=== PATIENT | female | born 1935 | race Caucasian/White ===

== ENCOUNTER 2017-08-21 13:28 | Day surgery (SDC) | payer OTHER ==
[~2017-08-21] VITALS: Ht 149.9 cm; Wt 59.4 kg
[2017-08-21] VITALS (7 sets, daily range): BP systolic 169–186; BP diastolic 57–91; PULSE 66–96; TEMP 36.4–37.2; O2SAT 89–96; Ht 149.9 cm; Wt 59.4 kg
[2017-08-21] MEDS ORDERED: GABA-112 PO (14:13)
[2017-08-21] MEDS ORDERED: GLIP10TA3 PO (14:13)
[2017-08-21] MEDS ORDERED: FERR1TAB13 PO (14:13)
[2017-08-21] MEDS ORDERED: GLC/500 PO (14:13)
[2017-08-21] MEDS ORDERED: OMEP20TA PO (14:13)
[2017-08-21] MEDS ORDERED: CLOP1TAB15 PO (14:13)
[2017-08-21] MEDS ORDERED: LISI20TA3 PO (14:13)
[2017-08-21] MEDS ORDERED: ATOR-24 PO (14:13)
--- NOTE | 2017-08-21 15:33 | Procedure Note ---
Pre-Mod Sedation Assessment General Date of Moderate Sedation: Aug 21, 2017. Vital Signs: Vital Signs Past 12 Hours Date Time Temp Pulse Resp B/P (MAP) Pulse Ox O2 Delivery O2 Flow Rate FiO2 08/21/17 14:13 37 83 22 186/89 (121) 92 Room Air Review Cardiovascular: regular rate, rhythm, no edema, no murmur Abdomen: soft Lungs: lungs clear Airway Class: II Pre-Sedation Airway Assessment Oral Cavity: Dental Abnormalities Short Thick Neck: No Hx of Sleep Apnea: No Smoking Status: Current Every Day Smoker Mallampati Classification: Class II ASA Classification: Class II Procedure Planning Contraindications-for Mod Sed: None Yes Notes The planned sedation has been discussed with the patient and consent obtained. I have identified the patient, determined the appropriateness of sedation and have assessed the patient immediately prior to the procedure. All medicine(s) and interventions are by my order.
--- NOTE | 2017-08-21 15:33 | History & Physical Bridge Note ---
H&P Re-Evaluation Bridge Note: I have examined the patient, reviewed the History & Physical and in the interval since the performance of the History & Physical I have noted the following changes of clinical significance: No changes noted
[2017-08-21] MEDS ORDERED: LIDOCAINE HCL 1% 20 ML VIAL ONE (15:35)
[2017-08-21] MEDS ORDERED: KEFZOL SPECIAL PROCEDURE STOCK 1 GM ADDVIAL IV ONE (15:45)
[2017-08-21] MEDS ORDERED: FENTANYL CITRATE INJ 50 MCG/1 ML 2 ML VIAL ONE (15:46)
[2017-08-21] MEDS ORDERED: MIDAZOLAM HCL 5 MG/ML 1 ML VIAL ONE (15:46)
[2017-08-21] MEDS ORDERED: LACTATED RINGER'S 1000ML IV SCH (16:00)
--- NOTE | 2017-08-21 16:21 | Procedure Note ---
Post-Mod Sedation Assessment General Date of Moderate Sedation Aug 21, 2017. Vital Signs: Vital Signs Past 12 Hours Date Time Temp Pulse Resp B/P (MAP) Pulse Ox O2 Delivery O2 Flow Rate FiO2 08/21/17 16:15 79 16 148/77 (100) 98 Mask 08/21/17 14:13 37 83 22 186/89 (121) 92 Room Air Review - Discharge Criteria Vital Signs Stable: Yes Alert/Oriented/Conversant: Yes Returned to Baseline Mental St: Yes Nausea Absent/Minimal: Yes Pain/Discomfort/Absent/Minimal: Yes Normal/Baseline Respirations: Yes Active Bleeding?: No Pt Received D/C Instructions: N/A Prescriptions Given: None Specific Proced. D/C Criteria Distal Pulses Present (Cardiac: N/A Groin site assessed-Card Cath: N/A Voided Prior To Discharge: N/A Discharged Patients Adult Escort/Transportation: N/A
--- NOTE | 2017-08-21 16:24 | Discharge Instructions ---
Discharge Instructions Date of Service Aug 21, 2017. Visit Reason for Visit: Tachy Alexis Syndrome *Dr Blue* Discharge Discharge Diagnosis / Problem: PPM AT CARLOS, TBS Discharge Goals Goal(s): Improve function Activity Recommendations Activity Limitations: as noted below Lifting Limitations: no more than 10 pounds (WITH THE LEFT ARM FOR 2 WEEKS) Shower/Bathe: tomorrow Driving or Machine Use: resume 1 day after discharge Anesthesia . Post Anesthesia Instructions: If you have had General Anesthesia or IV Sedation: * Do not drive today. * Resume driving when surgeon permits. * Do not make important decisions or sign legal documents today. * Call surgeon for: 1. Temperature elevations greater than 101 degrees F. 2. Uncontrollable pain. 3. Excessive bleeding. 4. Persistent nausea and vomiting. 5. Medication intolerance (nausea, vomiting or rash). * For nausea and vomiting use only clear liquids such as: tea, soda, bouillon until nausea subsides, then gradually increase diet as tolerated. * If you have any concerns or questions, call your surgeon's office. If physician is unavailable and it is an emergency, call 911 or go to the nearest emergency room. . Instructions / Follow-Up Instructions / Follow-Up ACTIVITY RECOMMENDATIONS: Do not lift more than 10 pounds with the left arm for 2 weeks SPECIAL CARE INSTRUCTIONS: * If bleeding occurs, apply direct pressure to area for 5 minutes. * Call your doctor if you have severe pain, fever, drainage or bleeding at site. * Keep dry for 24 hours. * Keep any scheduled doctor's appointment. * Implant Card - hand held device with website information given. SKIN IRRITATION: * You may experience some redness and/or swelling in the area where radiation was administered. If any skin irritation occurs, please contact your family physician. FOLLOW UP VISIT: Keep any scheduled doctor appointments. Diet Recommendations Recommended Home Diet: resume previous diet Procedures Procedures Performed: dual chamber permanent pacemaker generator change Pending Studies Studies pending at discharge: no Medical Emergencies . Who to Call and When: Medical Emergencies: If at any time you feel your situation is an emergency, please call 911 immediately. . Non-Emergent Contact Non-Emergency issues call your: Filler In . . "Provider Documentation" section prepared by Matilda Blue. .
--- NOTE | 2017-08-21 16:25 | [facility] Post Operative Brief Note ---
Immediate Operative Summary Operative Date Aug 21, 2017. Pre-Operative Diagnosis ppm at tj, tbs Post-Operative Diagnosis same Procedure(s) Performed dual chamber permanent pacemaker generator change Surgeon sydnie torres Aerospace Engineer Officer Armament Surgeon(s) none Estimated Blood Loss <5cc Findings see official report Fluids (cc crystalloids) 100cc Specimens none Drains none Anesthesia 3mg versed and 75mcg fentantyl Complication(s) None Disposition PCU
[2017-08-21] MEDS ORDERED: NURSING VERBAL MED ORDER ONE (18:30)
[2017-08-21] MEDS ORDERED: ALBUT/IPRATROP 3MG/0.5MG NEB 3 ML VIAL INH ONE (19:30)
--- NOTE | 2017-08-21 22:26 | OPERATIVE REPORT ---
DATE OF OPERATION: 08/21/2017 PREOPERATIVE DIAGNOSES: Permanent pacemaker at elective replacement indicator and tachybrady syndrome. POSTOPERATIVE DIAGNOSIS: Same. PROCEDURE: Dual chamber rate responsive permanent pacemaker generator change. SURGEON: Dr. Matilda Blue. CONCAVER: None. ANESTHESIA: Monitored conscious sedation administered under my supervision by Fara Lew. A total of 3 mg Versed and 75 mcg of fentanyl, start time 15:52 and end time 1615. IV FLUIDS: 100 mL. ANTIBIOTICS: 1 gram of Ancef. COMPLICATIONS: None. CONDITION: Stable. URINE OUTPUT: Not applicable. SPECIMENS: None. FINDINGS: See below. 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 She at her most recent device check was found to hit CARLOS back in July and she is symptomatic due to loss of rate responsive. She was recommended a generator change. CONSENT: Consent was obtained prior to the patient going into the electrophysiology lab. The patient was informed of risks, benefits and alternatives to the procedure. Risks include but not limited to sudden cardiac , cardiac arrhythmias, cerebrovascular accident, myocardial infarction, bleeding and infection. The patient understood these risks and agreed to the procedure as planned. Informed consent was obtained. DESCRIPTION OF THE PROCEDURE: The patient was brought into the electrophysiology lab in a fasting state. She was connected to continuous hides and skins colorer. A timeout was performed to ensure patient's identity and procedure correctly. The patient was prepped and draped over the left infraclavicular space in normal surgical standard fashion. Monitored conscious sedation was given throughout the procedure for patient's comfort level under my supervision. [place] precautions were maintained throughout the procedure. A 10 mL of 1% lidocaine, bupivacaine mixture were given over the prior surgical incision. Incision was made over the prior surgical incision and blunt dissection was performed down to the prior generator. The capsule was disrupted using iris scissors and then the pulse generator was freed from the capsule and removed from the body and the leads were checked intraoperatively. The capsule was disrupted and inferiorly and caudally to allow for new blood flow. The pocket was then flushed with copious amounts of bacitracin saline wash and inspected for hemostasis. The new pulse generator was attached to the leads making sure that the pins were in appropriate position, passed the set screws and the set screws were all tightened. The pulse generator was then placed in the pocket, making sure that the leads were lying flat beneath the device. The incision was then closed in 3-layer fashion, 2-0 Vicryl interrupted suture followed by 3-0 Vicryl sutures followed by a 4-0 Monocryl running stitch and Dermabond was applied. EQUIPMENT: 1. Explanted generator is [employer] [place], model number [id number], serial #[id number], implanted 12/23/2010. Hit [employer] SECUR[employer] GUARD on 07/15/2017. 2. The new generator is a [employer] [id number], serial #[id number]. 3. Right atrial lead - model #[id number], serial number [id number], implanted 12/23/2010. 4. Right ventricular lead 1646t - 58 cm, serial #[id number], implanted 12/23/2010. INTRAOPERATIVE TESTIN. Right atrial lead: P-wave 2.5 millivolts, impedance 409 ohms, threshold 0.5 volts at 1.1 milliamps. 2. Right ventricular lead: R-wave 9.9 millivolts, impedance 725 ohms, threshold 0.6 volts at 0.7 milliamps. FINAL MEASUREMENTS THROUGH THE DEVICE: 1. Right atrial lead: P-waves 1 millivolt, impedance 380 ohms, threshold 0.75 volts at 0.4 milliseconds. 2. Right ventricular lead: R-wave 15.68 millivolts, impedance 697 ohms, threshold 0.75 volts at 0.4 milliseconds. FINAL PARAMETERS: MVP-R 60/130. Right atrial amplitude 1.5 volts, pulse width 0.4 milliseconds, sensitivity 0.3 millivolts. Right ventricular amplitude 1.5 volts, pulse width 0.4 milliseconds, sensitivity 1.2 millivolts. IMPRESSION: Successful dual chamber rate responsive permanent pacemaker generator change due to the patient's pacemaker at elective replacement indicator and tachybrady syndrome. PLAN: Monitor patient post-sedation. She can continue her home medications. She is not to lift more than 10 pounds with the left arm for 2 weeks. She should follow up in our device clinic in [facility] for device and wound check in 7-10 days. I attest to the content of the Intraoperative Record and any orders documented therein. Any exceptions are noted below. MTDD
[2017-08-22] MEDS ORDERED: CEFAZOLIN IV 1,000 MG in DEXTROSE 5% 50ML IV SCH (06:00)
== END 2017-08-21 19:06 | disposition home or self-care (01) ==
LOC: C.ACU 13:28
PROVIDERS: ATTEND Internal Medicine
DX: I49.5 Sick sinus syndrome (principal); E11.59 Type 2 diabetes mellitus with other circulatory complications; I10 Essential (primary) hypertension; E78.5 Hyperlipidemia, unspecified; Z95.0 Presence of cardiac pacemaker; Z95.5 Presence of coronary angioplasty implant and graft; Z79.899 Other long term (current) drug therapy; Z79.84 Long term (current) use of oral hypoglycemic drugs; Z87.891 Personal history of nicotine dependence

== ENCOUNTER 2019-03-06 19:14 | Inpatient (IN) ==
[2019-03-06] MEDS ORDERED: LEVALBUTEROL HCL 1.25 MG/3 ML NEB NEB STA (20:16)
[2019-03-06] MEDS ORDERED: SODIUM CHLORIDE 0.9% 1000ML 500 ML IV ONE (20:16)
--- NOTE | 2019-03-06 20:34 | XRay Report ---
XR chest 1V portable CLINICAL HISTORY: 83 years-old Female presenting with Sepsis, shaky, abdominal pain. TECHNIQUE: Portable upright AP view of the chest was obtained. COMPARISON: None. FINDINGS: Left subclavian pacer with leads to the right atrium and right ventricular apex. Atherosclerosis of t he aortic arch. Cardiac silhouette mildly enlarged. Apparent nodule at the left lung base may represe nt a prominent nipple shadow. Lungs mildly hyperinflated. No focal opacity. No pleural effusion or pn eumothorax. Posttraumatic and/or advanced degenerative changes of the right glenohumeral joint. Upper abdomen normal. IMPRESSION: 1. Findings may suggest emphysema. No focal infiltrate to suggest pneumonia. 2. Mild cardiomegaly. 3. Apparent nodule at the left lung base may represent a prominent nipple shadow. This may be confir med with PA and lateral views or with nipple markers. Electronically signed by: Khris Amanda M.D. 03/06/2019 8:33 PM
[2019-03-06] MEDS ORDERED: LEVALBUTEROL 1.25MG/0.5ML NEB ONE (20:57)
[2019-03-06 21:05] LABS: Basophils # (auto) 0.01 K/uL (0-0.2); Basophils % (auto) 0.3 %; Eosinophils # (auto) 0.03 K/uL (0-0.5); Eosinophils % (auto) 0.8 %; Hematocrit (blood only) 39.4 % (37-47); Hemoglobin 13.6 g/dL (12.0-16.0); Immature Granulocytes # (auto) 0.03 K/uL (0.00-0.02); Immature Granulocytes % (auto) 0.8 %; Lymphocytes # (auto) 0.19 K/uL (1.2-3.4); Lymphocytes % (auto) 5.1 %; Mean Corpuscular Hgb Conc 34.5 g/dL (32-36); Mean Corpuscular Volume 90.6 fL (80-100); Monocytes # (auto) 0.03 K/uL (0.11-0.59); Monocytes % (auto) 0.8 %; Neutrophils # (auto) 3.43 K/uL (1.4-6.5); Neutrophils % (auto) 92.2 %; Platelet Count 108 K/uL (130-400); RDW Coefficient of Variation 13.8 % (11.5-14.5); RDW Standard Deviation 45.7 fL (36.4-46.3); Red Blood Count 4.35 M/uL (4.2-5.4); White Blood Count 3.72 K/uL (4.8-10.8)
[2019-03-06 21:15] LABS: INR 1.2 (0.9-1.1); Partial Thromboplastin Ratio 0.8; Partial Thromboplastin Time 21.7 Seconds (21.0-31.0); Prothrombin Time 11.9 Seconds (9.0-12.0)
[2019-03-06 21:15] LABS: iSTAT Creatinine 0.7 mg/dl (0.6-1.3); iSTAT Hemoglobin 12.9 g/dl (12.0-16.0); iSTAT Ionized Calcium 1.1 mmol/l (1.12-1.32); iSTAT Potassium 3.4 mEq/L (3.3-5.0)
[2019-03-06 21:22] LABS: Albumin Level 3.6 gm/dl (3.4-5.0); BUN Creatinine Ratio 21.8 (10-20); Calcium 8.6 mg/dl (8.5-10.1); Creatinine Clr Calc Pharmacy 39.1 ml/min; Est GFR (Non-African American) 59.5; Potassium 3.4 mmol/L (3.5-5.1)
[2019-03-06 21:44] LABS: Albumin Globulin Ratio 1.3 (0.9-2); Bilirubin,Total 1.3 mg/dl (0.2-1); Creatine Kinase MB 1.8 ng/ml (0.5-3.6); Globulin 2.8 gm/dl (2.5-4.0); Total Protein 6.4 gm/dl (6.4-8.2); Troponin I 0.049 ng/ml (0-0.045)
[2019-03-06] MEDS ORDERED: IOVERSOL 100ml IV PRN (21:47)
--- NOTE | 2019-03-06 21:54 | CT Scan Report ---
CT head/brain wo con CLINICAL HISTORY: 83 years-old Female presenting with Pt c/o AMS. TECHNIQUE: Multidetector CT imaging of the head was performed without the use of intravenous contrast . IV contrast: None. One or more dose lowering techniques were used consistent with the principles of ALARA (as low as reasonably achievable), including automatic exposure control, mA or kV adjustment t o individual patient size, and/or use of iterative reconstruction. COMPARISON: None. CT DOSE (mGy.cm): The estimated cumulative dose is 984.92 mGy.cm. FINDINGS: Fuel Efficient Automobile Designer topogram: The patient is edentulous. Proportional ventricular and sulcal prominence, likely age-related parenchymal volume loss. No hemorr carmen. Periventricular and subcortical white matter hypoattenuation, nonspecific but likely indicative of chronic small vessel ischemic change. No acute territorial infarct. No mass effect or midline cindi ft. No extra-axial fluid collection. Paranasal sinuses and mastoid air cells clear. Calvarium intact. IMPRESSION: 1. Chronic small vessel ischemic change. No acute intracranial abnormality. Electronically signed by: Khris Amanda M.D. 03/06/2019 9:52 PM
--- NOTE | 2019-03-06 22:06 | CT Scan Report ---
CT abd pelvis IV con only CLINICAL HISTORY: 83 years-old Female presenting with Pt c/o Rt sided abd pain. TECHNIQUE: Multidetector CT of the abdomen and pelvis was performed after the administration of intra venous contrast. IV contrast: 94 mL of Optiray 320. One or more dose lowering techniques were used co nsistent with the principles of ALARA (as low as reasonably achievable), including automatic exposure control, mA or kV adjustment to individual patient size, and/or use of iterative reconstruction. COMPARISON: None. CT DOSE (mGy.cm): The estimated cumulative dose is 984.92. FINDINGS: Baby Counselor topogram: Partially visualized pacer leads to the right atrium and right ventricular apex. Lung bases: Pacer leads noted to the right atrium and right ventricular apex. Faint calcification of papillary musculature in the left ventricle. Top normal cardiac size. No pericardial or pleural effus ion. Minimal dependent changes likely atelectasis. Mosaic attenuation suggest small airways disease. Fat-containing right Bochdalek hernia. Liver: Overall normal morphology of the liver apart from a subcapsular hypoenhancing lenticular 2.6 x 1.4 cm lesion along the anterior medial left hepatic lobe. Mild periportal edema suggested. Few tiny well-defined hypodense lesions likely hepatic cysts or hamartomas. Patent hepatic vasculature. Biliary: No intrahepatic or extrahepatic biliary ductal dilatation. Normal gallbladder. Pancreas: Moderate parenchymal atrophy. Spleen: Normal. Adrenal glands: Normal. Kidneys and ureters: Delayed perfusion of the right kidney in comparison to the left with moderate pe lvocaliectasis and distention of the right ureter to the level of an obstructing 9 mm calculus impact ed at the right ureterovesical junction. Severe right perinephric fat infiltration with exuberant per inephric fluid. Dominant simple appearing upper pole left renal cyst. Parapelvic cysts also suggested at the lower pole the left kidney. Several smaller renal cysts noted bilaterally. Left ureter nondis tended. Bladder: Normal. No bladder calculus. Pelvic organs: Uterus surgically absent. Cyst in the left adnexa possibly ovarian in origin and measu ring less than 2 cm, which is simple appearing. The right ovary is not visualized. Bowel: Mild diffuse wall thickening of the colon. The appendix is normal. No bowel obstruction. Small hiatal hernia. Peritoneal cavity: No free fluid or intraperitoneal gas. Right retroperitoneal fluid as mentioned. Lymph nodes: No enlarged lymph nodes in the abdomen or pelvis. Vasculature: Atherosclerosis of the normal caliber abdominal aorta. IVC patent. Extensive irregularit y of the infrarenal abdominal aorta despite lack of ectasia. Abdominal wall: Abdominal wall laxity with a small bowel containing ventral hernia in the infraumbili dima region. Fat-containing inguinal hernias may also be present. Musculoskeletal: Degenerative changes of the spine. Osteopenia. IMPRESSION: 1. Obstructing 9 mm calculus impacted at the right ureterovesical junction with resultant moderate r ight hydroureteronephrosis. Given the degree of right perinephric fluid, calyceal rupture suspected. No additional renal or ureteral calculus. 2. Subcapsular indeterminate lesion along the anterior left hepatic lobe. Correlate for an underlyin g malignancy. Comparison to prior examinations would be helpful. 3. Simple appearing 2 cm left adnexal cyst, unexpected in a postmenopausal patient. Per the [employer] incidental findings II committee recommendations, this would be considered margarito gn with no follow-up indicated in the late postmenopausal setting. 4. Apparent mild diffuse wall thickening of the colon is most likely due to underdistention an less there is symptomatology that would be suggest a mild colitis. Electronically signed by: Khris Amanda M.D. 03/06/2019 10:05 PM
[2019-03-06 22:21] LABS: Influenza A virus by PCR Neg for Influ A (Neg); Influenza B virus by PCR Neg for Influ B (Neg)
[2019-03-06] MEDS ORDERED: PIPERACILL/TAZOBAC CONSULT ACTIVE PRN (22:31)
[2019-03-06] MEDS ORDERED: PIPERACILLIN/TAZOBACTAM 4.5 GM/120 ML BAG IV ONE (22:31)
[2019-03-06] MEDS ORDERED: LEVOFLOXACIN/D5W 750 MG/150 ML BAG IV STA (22:31)
[2019-03-06] MEDS ORDERED: DAPTOmycin 275 MG in SYRINGE 0 ML IV ONE (22:31)
[2019-03-06 23:01] LABS: Appearance Urine Clear (Clear); Bacteria Urine Automated 4+ (Negative); Bilirubin Urine Negative (Negative); Blood Urine 1+ (Negative); Cast Urine Automated 0 /lpf (0-5); Color Urine Yellow; Epithelial Cell Urine Auto 0-5 /lpf (0-5); Glucose Urine UA Negative (Negative); Ketones Urine Negative (Negative); Leukocyte Esterase Urine Negative (Negative); Nitrite Urine Positive (Negative); Protein Urine Negative (Negative); RBC Urine Automated 0-4 /hpf (0-4); Urobilinogen Urine Negative (Negative)
--- NOTE | 2019-03-06 23:07 | Anesthesiology Consultation ---
Date of Service March 06, 2019 Assessment & Plan Chart Review Chart Review: Acceptable Risk for Surgery (emergent case) and Patient NOT seen in Pre Admission Testing Consults Requested none ASA [id number] Proposed Anesthesia Anesthesia Type: MAC Risk / Benefits Reviewed With: PT / POA / Parent / Guardian, Accepts Plan and Informed Consent Obtained Additional Comments: R/B of anesthesia discussed with both patient and her daughter. All questions were answered. Explained to pt and her daughter regarding her moderate to high risk of anesthesia due to her comorbidities. They understood and accepting risks. Consent was signed. NPO Date Last Intake of Fluids: 03/06/19 Time Last Intake of Fluids: 13:00 Date Last Intake of Solids: 03/06/19 Time Last Intake of Solids: 13:00 History Surgery Operation Date: 03/06/19 23:00 Proposed Procedures p Ureteral Stent Insertion/Removal - Justice Bojorquez MD Height/Weight Height: 1.55 m Weight: 60 kg Allergies Allergy/AdvReac Type Severity Reaction Status Date / Time No Known Allergies Allergy Unverified 08/21/17 14:01 Medications Home Medications Medication Instructions Recorded Confirmed Last Taken atorvastatin 40 mg PO DAILY 03/06/19 03/06/19 Unknown clopidogrel 75 mg PO DAILY 03/06/19 03/06/19 Unknown glipizide 10 mg PO DAILY 03/06/19 03/06/19 Unknown lisinopril 20 mg PO DAILY 03/06/19 03/06/19 Unknown metformin 500 mg PO BID 03/06/19 03/06/19 Unknown sertraline 25 mg PO DAILY 03/06/19 03/06/19 Unknown Active Medications Generic Name Dose Route Start Last Admin Trade Name Freq PRN Reason Stop Dose Admin Levofloxacin/Dextrose 750 mg in 150 mls @ 100 mls/hr 03/06/19 22:31 03/06/19 23:17 Levaquin/D5w IV 03/07/19 00:00 100 mls/hr NOW STA Administration Ioversol 94 ml 03/06/19 21:47 03/06/19 21:47 Optiray 320 100ml IV 03/10/19 21:46 94 ml ONCE PRN Administration Interaction Checking Past Medical History Medical History History of pacemaker Atrial fibrillation CAD (coronary artery disease) Chronic cough Diabetes Family history non-contributory Hyperlipidemia Hypertension Tachy-morelia syndrome S/p PM placement Past Family History Family History Other Family history non-contributory Past Surgical History Surgical History S/P appendectomy S/P cardiac cath PCI to RCA in 2010 S/P cardiac pacemaker procedure S/P cholecystectomy Past Anesthesia History No Hx of Anesthesia Complications and No Family Hx of Anesthesia Complications History of PONV No Motion Sickness Screening History of Motion Sickness: No Social History Smoking Status: Current every day smoker Smoking cigarettes per day: 1 ppd since age 13 Do You Dip or Chew Tobacco: No Hx Alcohol Use: No Hx Substance Use: No Exercise / Class Metabolic Activity III < 4 Walking/Shop/Light housework Physical Exam Vital Signs Last Vital Signs Temp 37.7 C H 03/06/19 19:30 Pulse 103 H 03/06/19 22:29 Resp 24 03/06/19 22:29 BP 163/91 H 03/06/19 22:29 Pulse Ox 94 03/06/19 22:29 ENMT Mouth: + edentulous (Only has 1 lower tooth); no TMJ abnormality and no TMJ clicking Thyromental Distance: < 3.5 Finger Breadths Mallampati Class: II Neck normal visual inspection Respiratory Auscultation: lungs clear to auscultation bilaterally Cardiovascular Rate/Rhythm: + abnormal rate and + abnormal rhythm (Irregularly irregular) Psychiatric Orientation: alert some confusion Testing Electrocardiogram Date: 03/06/19 Findings: + AFIB @ (96) Atrial fibrillation Anterior infarct , age undetermined Abnormal ECG No previous ECGs available Chest X-Ray Date: 03/06/19 FINDINGS: Left subclavian pacer with leads to the right atrium and right ventricular apex. Atherosclerosis of the aortic arch. Cardiac silhouette mildly enlarged. Apparent nodule at the left lung base may represent a prominent nipple shadow. Lungs mildly hyperinflated. No focal opacity. No pleural effusion or pneumothorax. Posttraumatic and/or advanced degenerative changes of the right glenohumeral joint. Upper abdomen normal. IMPRESSION: 1. Findings may suggest emphysema. No focal infiltrate to suggest pneumonia. 2. Mild cardiomegaly. 3. Apparent nodule at the left lung base may represent a prominent nipple shadow. This may be confirmed with PA and lateral views or with nipple markers. Laboratory Results 03/06/19 20:50 03/06/19 20:50 PT 11.9 Seconds (9.0-12.0) 03/06/19 20:50 INR 1.2 (0.9-1.1) H 03/06/19 20:50 APTT 21.7 Seconds (21.0-31.0) 03/06/19 20:50 Urine Color Yellow 03/06/19 22:52 Urine Appearance Clear (Clear) 03/06/19 22:52 Urine pH 6.0 (4.5-7.5) 03/06/19 22:52 Ur Specific [place] 1.020 (1.000-1.030) 03/06/19 22:52 Urine Protein Negative (Negative) 03/06/19 22:52 Urine Glucose (UA) Negative (Negative) 03/06/19 22:52 Urine Ketones Negative (Negative) 03/06/19 22:52 Urine Nitrite Positive (Negative) H 03/06/19 22:52 Ur Leukocyte Esterase Negative (Negative) 03/06/19 22:52 Urine WBC (Auto) 1-5 /hpf (0-5) 03/06/19 22:52 Urine RBC (Auto) 0-4 /hpf (0-4) 03/06/19 22:52 U Hyaline Cast (Auto) 0 /lpf (0-5) 03/06/19 22:52 U Epithel Cells (Auto) 0-5 /lpf (0-5) 03/06/19 22:52 Urine Bacteria (Auto) 4+ (Negative) H 03/06/19 22:52 03/06/19 21:00 POC Glucose (other) 190 H
[2019-03-06] MEDS ORDERED: fentaNYL citrate 100 MCG/2 ML VIAL IV PRN (23:11)
[2019-03-06] MEDS ORDERED: ATROPINE SULFATE 0.1 MG/ML 10ML SYR IV PRN (23:11)
[2019-03-06] MEDS ORDERED: PHENYLEPHRINE 100MCG/ML 5ML SYR IV PRN (23:11)
[2019-03-06] MEDS ORDERED: ONDANSETRON INJ 2 MG/ML 2 ML VIAL IV PRN (23:11)
[2019-03-06] MEDS ORDERED: ePHEDrine sulfate 50 MG/ML AMP IV PRN (23:11)
[2019-03-06] MEDS ORDERED: fentaNYL citrate 100 MCG/2 ML VIAL ONE (23:13)
--- NOTE | 2019-03-06 23:15 | Urology Consultation ---
Date of Consultation March 06, 2019 83-year-old female with no previous known history of stone disease presented with sudden onset of right flank pain fever nausea this afternoon. She presented to the emergency room she does have a history of a stent for heart atrial fibrillation she also has history of [id number] diabetes. She had a CT scan that showed significant hydroureteronephrosis to a 6-7 mm distal right ureteral stone. She does have stranding around the right kidney. She had a temp of over 39 in the emergency room and had a lactate of 4. White blood cell count is actually low her blood sugar is 190. She is tachycardic. Her daughter says she is somewhat confused as well. Discussed the options with the patient and the daughter and believe that given that she has bacteria in her urine and is nitrite positive that we would proceed to placing a stent. Because the risk of the procedure and agreed to proceed The hospice of seen the patient and her admitting her and I have contacted the operating room and will be taking her to place and emergent right stent History of Present Illness Allergies Allergy/AdvReac Type Severity Reaction Status Date / Time No Known Allergies Allergy Unverified 08/21/17 14:01 Home Medications Home Medications Medication Instructions Recorded Confirmed Type ATORVASTATIN (LIPITOR) 40 mg PO DAILY #0 tab 08/21/17 History Clopidogrel (Plavix) 75 mg PO DAILY #0 tab 08/21/17 History FERROUS SULFATE (KP FERROUS 1 tab PO DAILY 30 Days #30 tab 08/21/17 History SULFATE) GLIPIZIDE (GLUCOTROL) 10 mg PO DAILY #0 tab 08/21/17 History Gabapentin (Neurontin) PO TID #0 cap 08/21/17 History Lisinopril (Prinivil) 20 mg PO DAILY #0 tab 08/21/17 History METFORMIN HCL (GLUCOPHAGE) 500 mg PO BID #0 tab 08/21/17 History OMEPRAZOLE 1 tab PO DAILY 90 Days #90 tab 08/21/17 History Patient History Medical History History of pacemaker Atrial fibrillation CAD (coronary artery disease) Diabetes Family history non-contributory Hyperlipidemia Hypertension Tachy-morelia syndrome S/p PM placement Surgical History No pertinent past surgical history S/P cardiac cath PCI to RCA in 2010 S/P cardiac pacemaker procedure Family History Other Family history non-contributory Social History Feels Safe at Home: Yes Smoking Status: Current every day smoker Physical Exam Vital Signs (Past 24 Hours): Last Vital Signs Temp 37.7 C H 03/06/19 19:30 Pulse 103 H 03/06/19 22:29 Resp 24 03/06/19 22:29 BP 163/91 H 03/06/19 22:29 Pulse Ox 94 03/06/19 22:29 patient is an ill-looking female HEENT is unremarkable She has no significant respiratory distress she does have right-sided flank pain abdomen is soft with some tenderness in the right side Extremities without any evidence of edema Skin is warm and dry Neurologically the patient is responsive but somewhat confused Neck appears normal without any adenopathy Results & Data Diagnostic Findings CT is previously stated shows distal obstructing right ureteral stone Medications Administered Patient is received IV antibiotics 3 different kinds per the ED
[2019-03-06] MEDS ORDERED: LIDOCAINE HCL 2% 2 ML VIAL/AMP(20MG/ML) INFIL ONE ×2 (23:16)
[2019-03-06] MEDS ORDERED: PROPOFOL IV EMULSION 10 MG/ML 20 ML VIAL IV ONE (23:16)
[2019-03-06] MEDS ORDERED: SUCCINYLCHOLINE CHLORIDE 20 MG/ML 10 ML VIAL ONE (23:19)
[2019-03-07] MEDS ORDERED: IOTHALAMATE MEGLUMINE II 17.2% 250 ML VIAL ONE (00:02)
[2019-03-07] MEDS ORDERED: PHENYLEPHRINE HCL 10 MG/ML VIAL ONE (00:19)
--- NOTE | 2019-03-07 00:28 | Post Operative Brief Note ---
Immediate Post Op Note v1 Date of Surgery March 07, 2019 Pre & Post Diagnosis Operation Date: 03/06/19 23:00 Pre-Op Diagnosis: hydroureteronephrosis right ureteral stone ,urosepsis Post-Op Diagnosis: hydroureteronephrosis right ureteral stone ,urosepsis Procedure Operation Date: 03/06/19 23:00 Actual Procedures p Cystoscopy, Right Ureteral Stent Placement(Right) - Justice Bojorquez MD Surgeon Justice Bojorquez MD Legal Research Analyst none Estimated Blood Loss 0 Findings Consistent with Post-Op Diagnosis Drains Ponce Catheter (18fr)
--- NOTE | 2019-03-07 00:55 | Emergency Department Note ---
Entered by Esperanza Mckinnon acting as a scribe for Jed Mueller MD History of Present Illness General Chief complaint: Illness Stated complaint: PAINS IN STOMACH, VOMITING BILE, SHAKES/CHILLS Time Seen by Provider: 03/06/19 20:13 Source: patient Mode of arrival: ambulatory Limitations: no limitations History of Present Illness Provider complaint: Abd pain Onset (ago): hour(s) (couple hours ago today) Location: abdomen Severity: moderate Pain Consistency: + constant Maximum Pain Intensity: 5 Associated symptoms: + denies other symptoms, + nausea/vomiting and + other ( yaima); no chest pain, no headaches and no shortness of breath Patient 83 year old female presenting to the ED with abd pain beginning today. Patient states that she is having right sided abd pain, which is moderate in severity and constant since onset. She shares she has had multiple episodes of vomiting and diarrhea since onset as well. Daughter notes patient has been shaking and feeling weaker than normal. Patient shares she does have a pacemaker, but is unsure if she has any hx of abd surgeries. Patient lastly notes she did have cough, but denies any numbness, SOB, CP, fevers, chills or any other complaints or concerns at this time. Home Medications Home Medications Medication Instructions Recorded Confirmed Type atorvastatin 40 mg PO DAILY 03/06/19 03/06/19 History clopidogrel 75 mg PO DAILY 03/06/19 03/06/19 History glipizide 10 mg PO DAILY 03/06/19 03/06/19 History lisinopril 20 mg PO DAILY 03/06/19 03/06/19 History metformin 500 mg PO BID 03/06/19 03/06/19 History sertraline 25 mg PO DAILY 03/06/19 03/06/19 History Allergies Allergy/AdvReac Type Severity Reaction Status Date / Time No Known Allergies Allergy Unverified 08/21/17 14:01 Past Med/Surg History Medical History History of pacemaker Atrial fibrillation CAD (coronary artery disease) Chronic cough Diabetes Family history non-contributory Hyperlipidemia Hypertension Tachy-morelia syndrome S/p PM placement Surgical History S/P appendectomy S/P cardiac cath PCI to RCA in 2010 S/P cardiac pacemaker procedure S/P cholecystectomy Family History Other Family history non-contributory Social History Feels Safe at Home: Yes Smoking Status: Current every day smoker Hx Alcohol Use: No Hx Substance Use: No Review of Systems See HPI for pertinent positives & negatives. and A total of 10 systems reviewed and were otherwise negative Physical Exam Vital Signs Vital Signs - 24 hr 03/06/19 19:30 03/06/19 21:16 03/06/19 21:24 Temperature 37.7 C H Temperature Source Oral Sepsis Recent Fever Within 48 Hours No Sepsis New/Unexplained Change in Mental Status No Sepsis Action Taken by Nursing No Action Required Pulse Rate 123 H Pulse Rate [Apical] Pulse Rate [Right Radial] 102 H 98 H Pulse Rhythm [Apical] Respiratory Rate 20 16 20 Respiratory Effort / Characteristics Non-Labored Spontaneous Respiratory Depth Respiratory Pattern Blood Pressure 202/70 H Blood Pressure [Left Arm] 152/72 H Blood Pressure [Right Arm] Blood Pressure Mean 114 Blood Pressure Mean [Left Arm] 98 Blood Pressure Mean [Right Arm] Blood Pressure Position [Right Arm] Pulse Oximetry 95 90 94 Oxygen Delivery Method Room Air Room Air Oxygen Flow Rate 03/06/19 21:56 03/06/19 22:29 03/07/19 00:33 Temperature 36.4 C L Temperature Source Oral Sepsis Recent Fever Within 48 Hours Sepsis New/Unexplained Change in Mental Status Sepsis Action Taken by Nursing Pulse Rate 112 H Pulse Rate [Apical] 87 Pulse Rate [Right Radial] 103 H Pulse Rhythm [Apical] Irregular Respiratory Rate 28 H 24 16 Respiratory Effort / Characteristics Non-Labored Spontaneous Respiratory Depth Normal Respiratory Pattern Regular Blood Pressure Blood Pressure [Left Arm] 163/91 H Blood Pressure [Right Arm] 114/63 Blood Pressure Mean Blood Pressure Mean [Left Arm] 115 Blood Pressure Mean [Right Arm] 80 Blood Pressure Position [Right Arm] Semi-fowlers Pulse Oximetry 94 94 98 Oxygen Delivery Method Room Air Room Air Oxymask Oxygen Flow Rate 10 GENERAL: Patient is a healthy-appearing well-nourished HEAD: Normocephalic atraumatic EYES: Ocular movements intact pupils equal and react to light OROPHARYNX mucous membranes are moist no exudates present no erythema or edema present NECK: Supple no nuchal rigidity CHEST: Good equal expansion LUNGS: Clear and equal to auscultation CARDIAC: Normal S1 and S2 ABDOMEN: Soft no guarding, slight tenderness to RUQ BACK: No CVA tenderness EXTREMITIES: No pain upon palpation normal muscle strength in all groups no clubbing cyanosis or edema NEURO: Patient is following commands is answering questions appropriately. Alert and oriented x3 Cranial Nerves 2-12 grossly intact Course 2014: The patient was evaluated in room C01A, and a complete history and physical examination were performed. 4: Discussed case with Dr. Bojorquez, urology 2238: Updated patient and family on results and plan for admission. Patient is agreeable to admission. 2241: Discussed case with Dr. Dasilva, [facility] Hospitalist, who accepts patient for admission. Administered Medications Ioversol (Optiray 320 100ml) 94 ml IV ONCE PRN PRN Reason: Interaction Checking Stop: 03/10/19 21:46 Last Admin: 03/06/19 21:47 Dose: 94 ml Documented by: [id number] Discontinued Medications Sodium Chloride (Nss 1000ml) 500 mls @ 999 mls/hr IV .Q31M ONE Stop: 03/06/19 20:46 Last Infusion: 03/06/19 21:55 Dose: 0 mls/hr Documented by: [id number] Admin: 03/06/19 21:10 Dose: 999 mls/hr Documented by: [id number] Daptomycin 275 mg/ Syringe 5.5 mls @ 2.75 mls/min IV NOW ONE Stop: 03/06/19 22:32 Last Admin: 03/06/19 23:21 Dose: 2.75 mls/min Documented by: [id number] Piperacillin Sod/Tazobactam Sod (Zosyn) 4.5 gm in 120 mls @ 240 mls/hr IV NOW ONE Stop: 03/06/19 23:00 Last Admin: 03/06/19 23:18 Dose: 240 mls/hr Documented by: [id number] Levofloxacin/Dextrose (Levaquin/D5w) 750 mg in 150 mls @ 100 mls/hr IV NOW STA Stop: 03/07/19 00:00 Last Admin: 03/06/19 23:17 Dose: 100 mls/hr Documented by: [id number] Iothalamate Meglumine (Cysto-Conray Ii) Confirm Administered Dose 250 ml .ROUTE .STK-MED ONE Stop: 03/07/19 00:03 Last Admin: 03/07/19 00:23 Dose: Not Given Documented by: [id number] Levalbuterol HCl (Xopenex 1.25mg/3ml Neb) 1.25 mg NEB NOW STA Stop: 03/06/19 20:17 Last Admin: 03/06/19 21:16 Dose: 1.25 mg Documented by: [id number] Levalbuterol HCl (Xopenex 1.25mg/0.5ml Neb) Confirm Administered Dose 1.25 mg .ROUTE .STK-MED ONE Stop: 03/06/19 20:58 Last Admin: 03/06/19 21:23 Dose: Not Given Documented by: [id number] Medical Decision Making Differential Diagnosis Differential diagnosis: Etiologies such as appendicitis, diverticulitis, PUD, biliary pathology, UTI, pancreatitis, obstruction, mesenteric ischemia, aortic pathology, infections, inflammatory bowel disease, renal colic, as well as others were entertained. Medical Records Attestation: I reviewed the patient's medical records. Home Medications Current Medication List: was personally reviewed by me Laboratory Data Attestation: I reviewed the patient's lab results. Result diagrams: 03/06/19 20:50 03/06/19 20:50 Lab Results 03/06/19 03/06/19 03/06/19 Range/Units 20:50 20:50 20:50 WBC 3.72 L (4.8-10.8) K/uL RBC 4.35 (4.2-5.4) M/uL Hgb 13.6 (12.0-16.0) g/dL POC Hgb (12.0-16.0) g/dl Hct 39.4 (37-47) % POC Hct (37-47) % MCV 90.6 (80-100) fL MCH 31.3 (25-34) pg MCHC 34.5 (32-36) g/dL RDW Std Deviation 45.7 (36.4-46.3) fL RDW Coeff of Shraee 13.8 (11.5-14.5) % Plt Count 108 L (130-400) K/uL MPV 10.0 (7.4-10.4) fL Immature Gran % (Auto) 0.8 % Neut % (Auto) 92.2 % Lymph % (Auto) 5.1 % Kemper % (Auto) 0.8 % Eos % (Auto) 0.8 % Baso % (Auto) 0.3 % Immature Gran # (Auto) 0.03 H (0.00-0.02) K/uL Neut # (Auto) 3.43 (1.4-6.5) K/uL Lymph # (Auto) 0.19 L (1.2-3.4) K/uL Kemper # (Auto) 0.03 L (0.11-0.59) K/uL Eos # (Auto) 0.03 (0-0.5) K/uL Baso # (Auto) 0.01 (0-0.2) K/uL PT 11.9 (9.0-12.0) Seconds INR 1.2 H (0.9-1.1) APTT 21.7 (21.0-31.0) Seconds PTT Ratio 0.8 POC Sodium (135-144) mEq/L Sodium 141 (136-145) mmol/L POC Potassium (3.3-5.0) mEq/L Potassium 3.4 L (3.5-5.1) mmol/L POC Chloride (101-112) mEq/L Chloride 109 H (98-107) mmol/L Carbon Dioxide 23 (21-32) mmol/L POC Total CO2 (24-31) mEq/l Anion Gap 10.0 (3-11) POC Anion Gap (16-25) mmol/L POC BUN (7-18) mg/dl BUN 19 H (7-18) mg/dl Creatinine 0.89 (0.6-1.2) mg/dl POC Creatinine (0.6-1.3) mg/dl Est Cr Clr Drug Dosing 39.1 ml/min Est GFR ( Amer) 69.0 Est GFR (Non-Af Amer) 59.5 BUN/Creatinine Ratio 21.8 H (10-20) Glucose 190 H (70-99) mg/dl POC Glucose (other) (70-99) mg/dl Lactate (0.4-2.0) mmol/L Calcium 8.6 (8.5-10.1) mg/dl POC Ioniz Calcium Estrella (1.12-1.32) mmol/l Total Bilirubin 1.3 H (0.2-1) mg/dl AST 35 (15-37) U/L ALT 32 (12-78) U/L Alkaline Phosphatase 91 (45-117) U/L Total Creatine Kinase 96 (26-192) U/L CK-MB (CK-2) 1.8 (0.5-3.6) ng/ml CK/CKMB % Calc 1.9 (0-3.0) Troponin I 0.049 H* (0-0.045) ng/ml Total Protein 6.4 (6.4-8.2) gm/dl Albumin 3.6 (3.4-5.0) gm/dl Globulin 2.8 (2.5-4.0) gm/dl Albumin/Globulin Ratio 1.3 (0.9-2) Urine Color Urine Appearance (Clear) Urine pH (4.5-7.5) Ur Specific [place] (1.000-1.030) Urine Protein (Negative) Urine Glucose (UA) (Negative) Urine Ketones (Negative) Urine Blood (Negative) Urine Nitrite (Negative) Urine Bilirubin (Negative) Urine Urobilinogen (Negative) Ur Leukocyte Esterase (Negative) Urine WBC (Auto) (0-5) /hpf Urine RBC (Auto) (0-4) /hpf U Hyaline Cast (Auto) (0-5) /lpf U Epithel Cells (Auto) (0-5) /lpf Urine Bacteria (Auto) (Negative) Influenza Type A (PCR) (Neg) Influenza Type B (PCR) (Neg) 03/06/19 03/06/19 03/06/19 Range/Units 20:50 21:00 21:17 WBC (4.8-10.8) K/uL RBC (4.2-5.4) M/uL Hgb (12.0-16.0) g/dL POC Hgb 12.9 (12.0-16.0) g/dl Hct (37-47) % POC Hct 38 (37-47) % MCV (80-100) fL MCH (25-34) pg MCHC (32-36) g/dL RDW Std Deviation (36.4-46.3) fL RDW Coeff of Sharee (11.5-14.5) % Plt Count (130-400) K/uL MPV (7.4-10.4) fL Immature Gran % (Auto) % Neut % (Auto) % Lymph % (Auto) % Kemper % (Auto) % Eos % (Auto) % Baso % (Auto) % Immature Gran # (Auto) (0.00-0.02) K/uL Neut # (Auto) (1.4-6.5) K/uL Lymph # (Auto) (1.2-3.4) K/uL Kemper # (Auto) (0.11-0.59) K/uL Eos # (Auto) (0-0.5) K/uL Baso # (Auto) (0-0.2) K/uL PT (9.0-12.0) Seconds INR (0.9-1.1) APTT (21.0-31.0) Seconds PTT Ratio POC Sodium 141 (135-144) mEq/L Sodium (136-145) mmol/L POC Potassium 3.4 (3.3-5.0) mEq/L Potassium (3.5-5.1) mmol/L POC Chloride 104 (101-112) mEq/L Chloride (98-107) mmol/L Carbon Dioxide (21-32) mmol/L POC Total CO2 20 L (24-31) mEq/l Anion Gap (3-11) POC Anion Gap 21.0 (16-25) mmol/L POC BUN 20 H (7-18) mg/dl BUN (7-18) mg/dl Creatinine (0.6-1.2) mg/dl POC Creatinine 0.7 (0.6-1.3) mg/dl Est Cr Clr Drug Dosing ml/min Est GFR ( Amer) Est GFR (Non-Af Amer) BUN/Creatinine Ratio (10-20) Glucose (70-99) mg/dl POC Glucose (other) 190 H (70-99) mg/dl Lactate 4.0 H* (0.4-2.0) mmol/L Calcium (8.5-10.1) mg/dl POC Ioniz Calcium Estrella 1.10 L (1.12-1.32) mmol/l Total Bilirubin (0.2-1) mg/dl AST (15-37) U/L ALT (12-78) U/L Alkaline Phosphatase (45-117) U/L Total Creatine Kinase (26-192) U/L CK-MB (CK-2) (0.5-3.6) ng/ml CK/CKMB % Calc (0-3.0) Troponin I (0-0.045) ng/ml Total Protein (6.4-8.2) gm/dl Albumin (3.4-5.0) gm/dl Globulin (2.5-4.0) gm/dl Albumin/Globulin Ratio (0.9-2) Urine Color Urine Appearance (Clear) Urine pH (4.5-7.5) Ur Specific [place] (1.000-1.030) Urine Protein (Negative) Urine Glucose (UA) (Negative) Urine Ketones (Negative) Urine Blood (Negative) Urine Nitrite (Negative) Urine Bilirubin (Negative) Urine Urobilinogen (Negative) Ur Leukocyte Esterase (Negative) Urine WBC (Auto) (0-5) /hpf Urine RBC (Auto) (0-4) /hpf U Hyaline Cast (Auto) (0-5) /lpf U Epithel Cells (Auto) (0-5) /lpf Urine Bacteria (Auto) (Negative) Influenza Type A (PCR) Neg for Influ A (Neg) Influenza Type B (PCR) Neg for Influ B (Neg) 03/06/19 Range/Units 22:52 WBC (4.8-10.8) K/uL RBC (4.2-5.4) M/uL Hgb (12.0-16.0) g/dL POC Hgb (12.0-16.0) g/dl Hct (37-47) % POC Hct (37-47) % MCV (80-100) fL MCH (25-34) pg MCHC (32-36) g/dL RDW Std Deviation (36.4-46.3) fL RDW Coeff of Sharee (11.5-14.5) % Plt Count (130-400) K/uL MPV (7.4-10.4) fL Immature Gran % (Auto) % Neut % (Auto) % Lymph % (Auto) % Kemper % (Auto) % Eos % (Auto) % Baso % (Auto) % Immature Gran # (Auto) (0.00-0.02) K/uL Neut # (Auto) (1.4-6.5) K/uL Lymph # (Auto) (1.2-3.4) K/uL Kemper # (Auto) (0.11-0.59) K/uL Eos # (Auto) (0-0.5) K/uL Baso # (Auto) (0-0.2) K/uL PT (9.0-12.0) Seconds INR (0.9-1.1) APTT (21.0-31.0) Seconds PTT Ratio POC Sodium (135-144) mEq/L Sodium (136-145) mmol/L POC Potassium (3.3-5.0) mEq/L Potassium (3.5-5.1) mmol/L POC Chloride (101-112) mEq/L Chloride (98-107) mmol/L Carbon Dioxide (21-32) mmol/L POC Total CO2 (24-31) mEq/l Anion Gap (3-11) POC Anion Gap (16-25) mmol/L POC BUN (7-18) mg/dl BUN (7-18) mg/dl Creatinine (0.6-1.2) mg/dl POC Creatinine (0.6-1.3) mg/dl Est Cr Clr Drug Dosing ml/min Est GFR ( Amer) Est GFR (Non-Af Amer) BUN/Creatinine Ratio (10-20) Glucose (70-99) mg/dl POC Glucose (other) (70-99) mg/dl Lactate (0.4-2.0) mmol/L Calcium (8.5-10.1) mg/dl POC Ioniz Calcium Estrella (1.12-1.32) mmol/l Total Bilirubin (0.2-1) mg/dl AST (15-37) U/L ALT (12-78) U/L Alkaline Phosphatase (45-117) U/L Total Creatine Kinase (26-192) U/L CK-MB (CK-2) (0.5-3.6) ng/ml CK/CKMB % Calc (0-3.0) Troponin I (0-0.045) ng/ml Total Protein (6.4-8.2) gm/dl Albumin (3.4-5.0) gm/dl Globulin (2.5-4.0) gm/dl Albumin/Globulin Ratio (0.9-2) Urine Color Yellow Urine Appearance Clear (Clear) Urine pH 6.0 (4.5-7.5) Ur Specific [place] 1.020 (1.000-1.030) Urine Protein Negative (Negative) Urine Glucose (UA) Negative (Negative) Urine Ketones Negative (Negative) Urine Blood 1+ H (Negative) Urine Nitrite Positive H (Negative) Urine Bilirubin Negative (Negative) Urine Urobilinogen Negative (Negative) Ur Leukocyte Esterase Negative (Negative) Urine WBC (Auto) 1-5 (0-5) /hpf Urine RBC (Auto) 0-4 (0-4) /hpf U Hyaline Cast (Auto) 0 (0-5) /lpf U Epithel Cells (Auto) 0-5 (0-5) /lpf Urine Bacteria (Auto) 4+ H (Negative) Influenza Type A (PCR) (Neg) Influenza Type B (PCR) (Neg) Imaging Data Radiologist's Impression: CT head/brain wo con CLINICAL HISTORY: 83 years-old Female presenting with Pt c/o AMS. TECHNIQUE: Multidetector CT imaging of the head was performed without the use of intravenous contrast. IV contrast: None. One or more dose lowering techniques were used consistent with the principles of ALARA (as low as reasonably achievable), including automatic exposure control, mA or kV adjustment to individual patient size, and/or use of iterative reconstruction. COMPARISON: None. CT DOSE (mGy.cm): The estimated cumulative dose is 984.92 mGy.cm. FINDINGS: University Librarian topogram: The patient is edentulous. Proportional ventricular and sulcal prominence, likely age-related parenchymal volume loss. No hemorrhage. Periventricular and subcortical white matter hypoattenuation, nonspecific but likely indicative of chronic small vessel ischemic change. No acute territorial infarct. No mass effect or midline shift. No extra-axial fluid collection. Paranasal sinuses and mastoid air cells clear. Calvarium intact. IMPRESSION: 1. Chronic small vessel ischemic change. No acute intracranial abnormality. Electronically signed by: Khris Amanda M.D. 03/06/2019 9:[address] abd pelvis IV con only CLINICAL HISTORY: 83 years-old Female presenting with Pt c/o Rt sided abd pain. TECHNIQUE: Multidetector CT of the abdomen and pelvis was performed after the administration of intravenous contrast. IV contrast: 94 mL of Optiray 320. One or more dose lowering techniques were used consistent with the principles of ALARA (as low as reasonably achievable), including automatic exposure control, mA or kV adjustment to individual patient size, and/or use of iterative reconstruction. COMPARISON: None. CT DOSE (mGy.cm): The estimated cumulative dose is 984.92. FINDINGS: [employer] Librarian topogram: Partially visualized pacer leads to the right atrium and right ventricular apex. Lung bases: Pacer leads noted to the right atrium and right ventricular apex. Faint calcification of papillary musculature in the left ventricle. Top normal cardiac size. No pericardial or pleural effusion. Minimal dependent changes likely atelectasis. Mosaic attenuation suggest small airways disease. Fat- containing right Bochdalek hernia. Liver: Overall normal morphology of the liver apart from a subcapsular hypoenhancing lenticular 2.6 x 1.4 cm lesion along the anterior medial left hepatic lobe. Mild periportal edema suggested. Few tiny well-defined hypodense l esions likely hepatic cysts or hamartomas. Patent hepatic vasculature. Biliary: No intrahepatic or extrahepatic biliary ductal dilatation. Normal gallbladder. Pancreas: Moderate parenchymal atrophy. Spleen: Normal. Adrenal glands: Normal. Kidneys and ureters: Delayed perfusion of the right kidney in comparison to the left with moderate pelvocaliectasis and distention of the right ureter to the level of an obstructing 9 mm calculus impacted at the right ureterovesical junction. Severe right perinephric fat infiltration with exuberant perinephric fluid. Dominant simple appearing upper pole left renal cyst. Parapelvic cysts also suggested at the lower pole the left kidney. Several smaller renal cysts noted bilaterally. Left ureter nondistended. Bladder: Normal. No bladder calculus. Pelvic organs: Uterus surgically absent. Cyst in the left adnexa possibly ovarian in origin and measuring less than 2 cm, which is simple appearing. The right ovary is not visualized. Bowel: Mild diffuse wall thickening of the colon. The appendix is normal. No bowel obstruction. Small hiatal hernia. Peritoneal cavity: No free fluid or intraperitoneal gas. Right retroperitoneal fluid as mentioned. Lymph nodes: No enlarged lymph nodes in the abdomen or pelvis. Vasculature: Atherosclerosis of the normal caliber abdominal aorta. IVC patent. Extensive irregularity of the infrarenal abdominal aorta despite lack of ectasia. Abdominal wall: Abdominal wall laxity with a small bowel containing ventral hernia in the infraumbilical region. Fat-containing inguinal hernias may also be present. Musculoskeletal: Degenerative changes of the spine. Osteopenia. IMPRESSION: 1. Obstructing 9 mm calculus impacted at the right ureterovesical junction with resultant moderate right hydroureteronephrosis. Given the degree of right perinephric fluid, calyceal rupture suspected. No additional renal or ureteral calculus. 2. Subcapsular indeterminate lesion along the anterior left hepatic lobe. Correlate for an underlying malignancy. Comparison to prior examinations would be helpful. 3. Simple appearing 2 cm left adnexal cyst, unexpected in a postmenopausal patient. Per the [employer] incidental findings II committee recommendations, this would be considered benign with no follow-up indicated in the late postmenopausal setting. 4. Apparent mild diffuse wall thickening of the colon is most likely due to underdistention an less there is symptomatology that would be suggest a mild colitis. Electronically signed by: Khris Amanda M.D. 03/06/2019 10:05 PM XR chest 1V portable CLINICAL HISTORY: 83 years-old Female presenting with Sepsis, shaky, abdominal pain. TECHNIQUE: Portable upright AP view of the chest was obtained. COMPARISON: None. FINDINGS: Left subclavian pacer with leads to the right atrium and right ventricular apex. Atherosclerosis of the aortic arch. Cardiac silhouette mildly enlarged. Apparent nodule at the left lung base may represent a prominent nipple shadow. Lungs mildly hyperinflated. No focal opacity. No pleural effusion or pneumothorax. Posttraumatic and/or advanced degenerative changes of the right glenohumeral joint. Upper abdomen normal. IMPRESSION: 1. Findings may suggest emphysema. No focal infiltrate to suggest pneumonia. 2. Mild cardiomegaly. 3. Apparent nodule at the left lung base may represent a prominent nipple shadow. This may be confirmed with PA and lateral views or with nipple markers. Electronically signed by: Khris Amanda M.D. 03/06/2019 8:33 PM ECG Data Attestation: I personally reviewed and interpreted this ECG as follows: Indication: vomiting Rate (beats per minute): 96 Rhythm: atrial fibrillation Findings: no ST depression and no ST elevation Blood Pressure Blood Pressure Findings: Elevated blood pressure Blood Pressure Disposition: further management by hospitalist LYUDMILA Melvin This is an 83-year-old female who presents emergency department complaining of right-sided abdominal pain. The patient is running a fever here in the emergency department. Due to the nature of the patient's complaint sepsis workup was initiated. The patient was found to have an elevation in her lactate. She was sent for a CAT scan of the abdomen pelvis which was concerning for a 9 mm kidney stone. Because of this I did discuss the case with the urologist automation driver. The patient was started on broad-spectrum antibiotics including Zosyn Levaquin and daptomycin. She was discussed with the ICU as well as the hospitalist service. Both patient and family were in agreement with the treatment plan. Impression & Plan Kidney stone, Fever, Atrial fibrillation, Elevated troponin Critical Care Time I have personally spent greater than 90 minutes of critical care time in the direct management of this patient. This includes bedside care, interpretation of diagnostic studies, and testing, discussion with consultants, patient, and family members, and other required patient management activities. This 90 minutes is in excess of all separately billable procedures. Discharge Plan Visit Data *Final* Discharge Date/Time: 03/06/19 23:25 Chief Complaint: Illness Stated Complaint: PAINS IN STOMACH, VOMITING BILE, SHAKES/CHILLS ED Provider: Jed Mueller Discharge Problem: Kidney stone, Fever, Atrial fibrillation, Elevated troponin Patient Disposition: Admitted As Inpatient Discharge Instructions Interventions: ED Discharge Assessment Last Done: 03/06/19 23:25 Discharge Problem: Fever Qualifiers: Fever type: unspecified Qualified Code(s): R50.9 - Fever, unspecified Atrial fibrillation Qualifiers: Atrial fibrillation type: unspecified Qualified Code(s): I48.91 - Unspecified atrial fibrillation The scribe's documentation has been prepared under my direction and personally reviewed by me in its entirety. I confirm that the note above accurately reflects all work, treatment, procedures, and medical decision making performed by me.
--- NOTE | 2019-03-07 01:03 | Anesthesiology Progress Note ---
Date of Service March 07, 2019 Anesthesia Post Procedure Vital Signs Vital Signs: Temp Pulse Pulse Pulse Resp BP BP 03/07/19 00:55 87 16 03/07/19 00:45 88 16 03/07/19 00:33 36.4 C L 87 16 03/06/19 22:29 103 H 24 163/91 H 03/06/19 21:56 112 H 28 H 03/06/19 21:24 98 H 20 152/72 H 03/06/19 21:16 102 H 16 03/06/19 19:30 37.7 C H 123 H 20 202/70 H BP Pulse Ox 03/07/19 00:55 119/53 L 100 03/07/19 00:45 130/48 L 100 03/07/19 00:33 114/63 98 03/06/19 22:29 94 03/06/19 21:56 94 03/06/19 21:24 94 03/06/19 21:16 90 03/06/19 19:30 95 Notes Mental Status: alert / awake / arousable Patient Amnestic to Procedure: Yes Nausea / Vomiting: adequately controlled Pain: adequately controlled Airway Patency, RR, SpO2: stable & adequate BP & HR: stable & adequate Hydration State: stable & adequate Anesthetic Complications: no major complications apparent Notes: Awake, doing well, no complaints. VSS. Pt will be kept on O2 via NC overnight and monitored in PCU/tele unit
--- NOTE | 2019-03-07 01:37 | History and Physical Report ---
DATE OF ADMISSION: 03/06/2019 CHIEF COMPLAINT: Right flank pain. HISTORY OF PRESENT ILLNESS: This is an 83-year-old female with past medical history significant for CAD status post stent, tachy/morelia syndrome status post pacemaker, diabetes, hyperlipidemia, hypertension who presents with severe right flank pain and found to have impacted right UPJ stone and severe sepsis with lactic acid of 4, tachycardia and temp spike. The patient currently is resting comfortably, somewhat hard to hear. Daughter is in the room helping with answering questions. The patient lives with her son. Since 03/05/2019 night, she was having some right flank pain which got worse today morning and she called her daughter and she was brought in here. She was trying to micturate whole day today but could not make much urine. She has chronic diarrhea, daughter thinks, from her metformin. Denies any chest pain or shortness of breath. Has cough on and off. She still smokes about half pack a day. Has some headache. Vision is okay. Appetite is okay. No difficulty swallowing, feeling nauseous, but no vomiting. No swelling of the legs. She ambulates without any help. Blood pressure is okay. Currently, she is going for emergent cystoscopy and stent placement. ALLERGIES: No known drug allergies. PAST MEDICAL HISTORY: As mentioned above. PAST SURGICAL HISTORY: Cardiac catheterization, status post stent placement, pacemaker insertion, total hysterectomy. MEDICATIONS: The patient is on Nitrostat 0.3 mg sublingual as needed, Zoloft 25 mg p.o. daily, atorvastatin 40 mg p.o. daily, Azopt ophthalmic suspension 1 drop t.i.d., Plavix 75 mg p.o. daily, ferrous sulfate 325 mg p.o. daily, gabapentin 100 mg p.o. b.i.d., glipizide 10 mg p.o. b.i.d., lisinopril 20 mg p.o. daily, metformin 1000 mg at bedtime, omeprazole 20 mg p.o. daily, Travatan 0.04% ophthalmic solution 1 drop at bedtime. FAMILY HISTORY: No family history on file. SOCIAL HISTORY: , lives with her son. Smokes 1 pack a day. REVIEW OF SYMPTOMS: As per HPI. Rest of review of systems negative. PHYSICAL EXAMINATION: GENERAL: The patient is old and frail, not in acute distress. VITAL SIGNS: Temperature 37.7, pulse 103, respiratory rate 24, blood pressure 163/91, oxygen 95% room air. HEENT: No pallor, no icterus. Pupils equal, round, and react to light. NECK: No JVD, no neck masses, no carotid bruits. CARDIOVASCULAR: S1, S2 heard, regular rate and rhythm, no murmur, no gallop. RESPIRATORY SYSTEM: Normal AP diameter. No accessory muscle use. No questionable wheezing, no crackles. ABDOMEN: Soft, bowel sounds present. Mild right groin tenderness, no guarding, no rigidity. No distention. CENTRAL NERVOUS SYSTEM: Cranial nerves II-XII grossly nonfocal. EXTREMITIES: No edema, no erythema. LABS: WBC is 3.7, hemoglobin 13.6, hematocrit 39.4, platelets 108. PT 11.9, INR 1.2, APTT 21.7, sodium 141, potassium 3.4, chloride 109, BUN 19, creatinine 0.8, serum glucose 190. Lactate 4, calcium 8.6, ionized calcium 1.1, total bilirubin 1.3, AST 30, ALT 32, alkaline phosphatase is 91. Total creatinine kinase 96, CK-MB 1.8, troponin I 0.049. Urinalysis positive for nitrite. Influenza A and B, PCR negative. CT of the head and rhythm, no acute intracranial abnormality. Chest x-ray: No focal infiltrate, mild cardiomegaly. CT of the abdomen and pelvis, obstructing 9 mm calculus impacted the right UVJ junction with resultant moderate right hydroureteronephrosis. Given the degree of right perinephric fluid, a calcayeal rupture is suspected, no other calculus, subcapsular indeterminate lesion along the anterior left hepatic lobe, correlate for underlying malignancy, comparison to prior examination would be helpful, simple-appearing 2 cm left adnexal cyst unexpected on postmenopausal patient. Per [employer] incidental findings II Committee recommendation this could be benign with no followup indicated in the late menopausal setting, apparent mild diffuse wall thickening of the colon, most likely due to under distention unless there is symptomatology that could be suggestive of mild colitis. EKG shows atrial fibrillation at a rate of 96. ASSESSMENT AND PLAN: This is an 83-year-old female who presents with right flank pain and found to be in severe sepsis from impacted right ureteropelvic junction kidney stone. 1. Severe sepsis with temperature spike, tachycardia, leukopenia and thrombocytopenia and elevated lactic acid of 4, with CAT scan showing an impacted right ureterovesical junction 9 mm kidney stone. Received fluid bolus in Er and iv abx.Blood pressure is ok.Heart rates better. We will continue fluids with with IV normal saline 150 mL per hour, IV antibiotics, cefepime and daptomycin, follow the urine culture and blood culture. The patient is going emergently for cystoscopy and stent placement. We will follow the repeat lactic acid and will follow repeat labs. Closely monitor in the tele floor for now. If she deteriorates, we will transfer her to ICU. 2. Hypokalemia. We will replace. 3. Mild elevation of troponin. Mostly form sepsis.We will follow serial cardiac enzymes. 4. Atrial fibrillation. History of tachybrady syndrome, status post pacemaker, but no mention of atrial fibrillation in the epic records and not on anticoagulation. Rates under control. Mostly from sepsis. We will repeat EKG in morning. If persistent, we will consult cardiology for further recommendation and about regarding anticoagulation, 5. Liver lesion on CAT scan, needs followup.Also questionable left lung base nodule needs CXR pa/lat view when stable. 6. History of coronary artery disease status post stent, on Plavix and statin. We will hold statin while she is on daptomycin. 7. Hyperlipidemia, on statin.Holding while on daptomycin 8. Hypertension, on lisinopril.with holding parameters 9. Gastroesophageal reflux disease on proton pump inhibitor. 10. Diabetes. We will hold home p.o. medication of glipizide and metformin. Placed on insulin sliding scale and closely monitor the blood sugars. 11. Deep vein thrombosis prophylaxis, sequential compression devices for now. DISPOSITION: Closely monitor in tele floor. Level 1 full code. PT and OT prior to discharge. Social Service to help with discharge planning. PEPE
[2019-03-07] MEDS ORDERED: POTASSIUM CHLORIDE 10 MEQ TABCR PO STA (01:44)
[2019-03-07] MEDS ORDERED: DAPTOmycin 500 MG VIAL IV SCH (01:44)
[2019-03-07] MEDS ORDERED: MoRPHine SULFATE 4 MG/ML 1 ML CARP\\VIAL IV PRN (01:44)
[2019-03-07] MEDS ORDERED: NITROGLYCERIN SL 0.4 MG/TAB TAB SL PRN (01:44)
[2019-03-07] MEDS ORDERED: CEFEPIME CONSULT ACTIVE PRN (01:54)
[2019-03-07] MEDS ORDERED: CEFEPIME 2,000 MG in SYRINGE 7.5 ML IV SCH (02:00)
[2019-03-07] MEDS: SODIUM CHLORIDE 0.9% 1000ML 1,000 ML IV SCH ×3 (02:19→20:07)
[2019-03-07] MEDS ORDERED: SODIUM CHLORIDE 0.9% 500 ML IV SCH ×2 (04:00→06:00)
[2019-03-07] MEDS ORDERED: SODIUM CHLORIDE 0.9% 1000ML 1,000 ML IV SCH (04:00)
[2019-03-07] MEDS ORDERED: Nursing to Pharmacy Communication ONE ×3 (04:14→18:21)
--- NOTE | 2019-03-07 04:28 | Operative Report ---
DATE OF OPERATION: 03/07/2019 PREOPERATIVE DIAGNOSIS: Right ureteral stone with urosepsis. POSTOPERATIVE DIAGNOSIS: Right ureteral stone with urosepsis. PROCEDURE PERFORMED: Cystoscopy and stent placement. SEDATION: Anesthesia. SURGEON: Justice Bojorquez MD INDICATIONS: The patient is an 83-year-old female who presented with urosepsis and an obstructing distal stone with significant hydroureteronephrosis and a fever and tachycardia. DESCRIPTION OF THE PROCEDURE: She was taken to the OR, where she was given sedation, placed in dorsal lithotomy position, prepped and draped in usual sterile fashion. The patient has severe cystocele, significant urethral prolapse and was difficult to see the meatus because of this and the narrowing of the introitus and the difficulty of being not able to relax her hips. I was able, however, to get a #21-German cystoscope in and was able to get a #5-German open-ended catheter into the distal ureter and then a guidewire up into the right renal pelvis, which still had contrast in it from earlier CT scan showing hydronephrosis. The wire was advanced into the renal pelvis, which could be seen easily. At this point, a 20-30 variable length, #5 German catheter was passed over the guidewire into good position in the renal pelvis, the other in the bladder. The wire was removed. A Ponce catheter was placed. The patient was transferred to the recovery room in stable condition. I attest to the content of the Intraoperative Record and any orders documented therein. Any exception s are noted below.
[2019-03-07] MEDS ORDERED: DEXTROSE 50% 50 ML SYRINGE IV PRN (04:45)
[2019-03-07] MEDS ORDERED: GLUCAGON FOR INJ 1 MG VIAL SQ PRN (04:45)
[2019-03-07] MEDS ORDERED: GLUCOSE 10 TABS/TUBE PO PRN (04:45)
[2019-03-07] MEDS ORDERED: GLUCOSE 40% GEL 15 GM TUBE PO PRN (04:45)
[2019-03-07] MEDS ORDERED: CARBOHYDRATES FOR HYPOGLYCEMIA PO PRN (04:45)
[2019-03-07 05:01] LABS: Hematocrit (blood only) 33.8 % (37-47); Hemoglobin 11.4 g/dL (12.0-16.0); Mean Corpuscular Hgb Conc 33.7 g/dL (32-36); Mean Corpuscular Volume 92.6 fL (80-100); RDW Coefficient of Variation 14.2 % (11.5-14.5); RDW Standard Deviation 47.5 fL (36.4-46.3); Red Blood Count 3.65 M/uL (4.2-5.4); White Blood Count 10.73 K/uL (4.8-10.8)
[2019-03-07 05:19] LABS: Calcium 7.1 mg/dl (8.5-10.1); Creatinine Clr Calc Pharmacy 27.4 ml/min; Est GFR (African American) 47.6; Est GFR (Non-African American) 41.1; Magnesium 1.2 mg/dl (1.8-2.4)
[2019-03-07 05:29] LABS: Troponin I 0.069 ng/ml (0-0.045)
[2019-03-07 05:42] LABS: Basophils # (auto) 0.01 K/uL (0-0.2); Basophils % (auto) 0.1 %; Eosinophils # (auto) 0.01 K/uL (0-0.5); Eosinophils % (auto) 0.1 %; Immature Granulocytes # (auto) 0.07 K/uL (0.00-0.02); Immature Granulocytes % (auto) 0.7 %; Lymphocytes # (auto) 0.28 K/uL (1.2-3.4); Lymphocytes % (auto) 2.6 %; Mean Platelet Volume 10.4 fL (7.4-10.4); Monocytes # (auto) 0.45 K/uL (0.11-0.59); Monocytes % (auto) 4.2 %; Neutrophils # (auto) 9.91 K/uL (1.4-6.5); Neutrophils % (auto) 92.3 %; Platelet Count 68 K/uL (130-400); Platelet Estimate Decreased (Normal)
[2019-03-07] MEDS ORDERED: POTASSIUM CHLORIDE 20 MEQ TABCR PO STA (05:55)
[2019-03-07] MEDS: INSULIN ASPART 100 UNITS/ML 3 ML PEN SC SCH ×4 (06:03→20:09)
--- NOTE | 2019-03-07 06:21 | Fluoroscopy Report ---
FL retrograde includes kub HISTORY: 83 years-old Female RT SIDE CYSTO, RETROGRADE, STENT PLACEMENT right cystourethrogram with stent placement COMPARISON: CT abdomen and pelvis 03/06/2019 TECHNIQUE: 6 spot fluoroscopic images of the abdomen were obtained utilizing 13.1 seconds fluoroscopy time FINDINGS: Hydroureteronephrosis redemonstrated along with calyceal blunting on the right. Guidewire noted about the right ureter with subsequent images demonstrating deployment of a right ureteral stent, proximal portion within the region of the right renal pelvis. The distal portion of the stent is not imaged. IMPRESSION: Fluoroscopic assistance as above. Please see procedural report for further details. The above report was generated using voice recognition software. It may contain grammatical, syntax o r spelling errors. Electronically signed by: Grant Prince M.D. 03/07/2019 6:20 AM
[2019-03-07] MEDS: MAGNESIUM SULFATE / D5W 1 GM/100 ML BAG IV SCH ×2 (06:22→07:16)
[2019-03-07] MEDS: POTASSIUM CHLORIDE / WTR 10 MEQ/100 ML PLCT IV SCH ×3 (06:25→08:45)
--- NOTE | 2019-03-07 07:21 | XRay Report ---
XR chest 1V portable HISTORY: 83 years-old Female congestion acute cough and congestion COMPARISON: Chest radiograph and CT abdomen and pelvis 03/06/2019 TECHNIQUE: Portable AP view of the chest FINDINGS: Cardiac silhouette is mildly enlarged, unchanged. Stable positioning of left subclavian pacer. Calcif ication the thoracic aortic arch. Unchanged mild subsegmental bibasilar opacities without pneumothora x, pleural effusion or overt pulmonary edema. Degenerative changes of the shoulders and spine. IMPRESSION: 1. Mild cardiomegaly without acute process. 2. Minimal persistent bibasilar opacities suggestive of probable atelectasis as noted on yesterday's CT study. The above report was generated using voice recognition software. It may contain grammatical, syntax o r spelling errors. Electronically signed by: Grant Prince M.D. 03/07/2019 7:19 AM
[2019-03-07] MEDS ORDERED: INSULIN ASPART 100 UNITS/ML 3 ML PEN SC SCH (07:30)
[2019-03-07] MEDS: SERTRALINE HCL 50 MG TABLET PO SCH (08:07)
[2019-03-07] MEDS: CLOPIDOGREL BISULFATE 75 MG TAB PO SCH (08:07)
[2019-03-07] MEDS ORDERED: LISINOPRIL 20 MG TAB PO SCH (09:00)
[2019-03-07] MEDS: ONDANSETRON INJ 2 MG/ML 2 ML VIAL IV PRN (11:00)
--- NOTE | 2019-03-07 14:08 | Urology Progress Note ---
Date of Service March 07, 2019 Pt alert feeling better . Still NPO . Ok to eat from point of view . Will need to be discharged on antibiotics when stable and sensitivities back. She will need to f/u to have right ureteroscopy and stone removal scheduled Physical Exam Vital Signs (Past 24 Hours): Last Vital Signs Temp 36.9 C 03/07/19 10:46 Pulse 87 03/07/19 10:46 Resp 26 H 03/07/19 10:46 BP 96/48 L 03/07/19 10:46 Pulse Ox 95 03/07/19 10:46
[2019-03-07 15:25] LABS: BUN Creatinine Ratio 26.7 (10-20); Calcium 7.6 mg/dl (8.5-10.1); Creatinine Clr Calc Pharmacy 31.3 ml/min; Est GFR (African American) 55.8; Est GFR (Non-African American) 48.2; Potassium 4.3 mmol/L (3.5-5.1)
--- NOTE | 2019-03-07 18:28 | Hospitalist Progress Note ---
Date of Service March 07, 2019 Assessment & Plan (1) Severe sepsis with acute organ dysfunction due to Gram negative bacteria: meets criteria for sepsis per CMS guideline presented with fever , tachycardia , elevated lactic acid level , acute renal failure , hypotension source of infection -obstructed ueteric stone , complicated UTI ( urine culture -gram negative bacilli ) leading to gram negative bactermia vitals improved after aggresive Iv hydration did not require pressors serial Lacitc acid level shows gradual improvement s/p cystoscopy with rt sided ureteric stone placement cont with broad specturm IV ABx Zosyn ID eval requested monitor in tele Present on Admission?: Yes (2) Acute renal failure superimposed on stage 3 chronic kidney disease: due to above , obstructed ureteric stone , severe sepsis , dehydration s/p ureteric stent plancement Cr improved with IV hydratiaon hold lisionopril avoid NSAIDs follow BMP (3) Gram-negative bacteremia: from complicated UTI /obstructed ureteric stone Urine and blood culture growing gram negative bacilli Isolation and sensitivity pending on IV Zosyn repeat blood cultures ordered ID cosnulted (4) Hydronephrosis with renal and ureteral calculous obstruction: s/p rt ueteric stent placement appreciate input from Urology (5) Metabolic encephalopathy: baseline advanced dementia worsening of confusion , delirium due to acute infection severe sepsis cont treatment as oulined above fall precuation high risk for delirium avoid narcotis/BDZ (6) Hypotension: due to severe sepsis given IV fluid bolus cont iVF hold Lisinopril monitor in tele (7) UTI (urinary tract infection), bacterial: complicated UTI in setting of obstructed ureteric stone , leading to gram negative bacteremia cont broad spectrum Abx follow culture report ID eval requested CODE STATUS : FULL CODE Subjective very confused does not recall why she is in hospital afebrile no complain of abdominal pain or nausea tolerating diet Physical Exam Vital Signs (Past 24 Hours): Last Vital Signs Temp 36.8 C 03/07/19 15:16 Pulse 93 H 03/07/19 15:16 Resp 18 03/07/19 15:16 BP 97/56 L 03/07/19 15:16 Pulse Ox 94 03/07/19 15:16 Physical Exam: GENERAL: No sign of distress, HEENT: Sclera nonicteric, p Normal oral mucosa, neck: No JVD, no thyromegaly, trachea midline Lungs: Clear to auscultate, no wheeze or rales Cardiovascular: Regular S1 and S2, no murmur or gallop, no JVD, no lower extremity edema Abdomen: Soft, nontender, no flank pain Extremities: No rash or deformity, normal joint, Neuro: No focal neurological deficit, no dysarthria, no facial droop Psych: awake , baseline dementia , confused Skin: No rash LYMPH NODES: No cervical lymphadenopathy
[2019-03-07 18:33] LABS: BUN Creatinine Ratio 30.9 (10-20); Calcium 7.3 mg/dl (8.5-10.1); Creatinine Clr Calc Pharmacy 32.9 ml/min; Est GFR (African American) 59.2; Est GFR (Non-African American) 51.1; Potassium 4.5 mmol/L (3.5-5.1)
[2019-03-07] MEDS ORDERED: PIPERACILL/TAZOBAC CONSULT ACTIVE PRN ×2 (19:39→19:42)
[2019-03-07] MEDS ORDERED: PIPERACILLIN/TAZOBACTAM 4.5 GM in DEXTROSE 5% 100 ML IV ONE (20:00)
[2019-03-07] MEDS ORDERED: DAPTOmycin 275 MG in SYRINGE 0 ML IV SCH (21:00)
[2019-03-08] MEDS ORDERED: PIPERACILLIN/TAZOBACTAM 4.5 GM in DEXTROSE 5% 100 ML IV SCH (02:00)
[2019-03-08] MEDS: SODIUM CHLORIDE 0.9% 1000ML 1,000 ML IV SCH ×2 (02:25→22:38)
[2019-03-08] MEDS: ACETAMINOPHEN 325 MG TAB PO PRN (04:57)
[2019-03-08 06:15] LABS: Hematocrit (blood only) 32.7 % (37-47); Hemoglobin 10.7 g/dL (12.0-16.0); Mean Corpuscular Hgb Conc 32.7 g/dL (32-36); Mean Corpuscular Volume 92.6 fL (80-100); RDW Coefficient of Variation 14.7 % (11.5-14.5); RDW Standard Deviation 49.6 fL (36.4-46.3); Red Blood Count 3.53 M/uL (4.2-5.4); White Blood Count 15.61 K/uL (4.8-10.8)
[2019-03-08 06:20] LABS: Mean Platelet Volume 11.5 fL (7.4-10.4); Platelet Count 61 K/uL (130-400)
[2019-03-08 06:29] LABS: BUN Creatinine Ratio 35.5 (10-20); Calcium 7.2 mg/dl (8.5-10.1); Est GFR (African American) 65.4; Est GFR (Non-African American) 56.4; Magnesium 2.1 mg/dl (1.8-2.4); Potassium 4.6 mmol/L (3.5-5.1)
[2019-03-08 07:37] LABS: ALC (manual) 0.47 K/uL (1.2-3.4); Lymphocytes # (manual) 0.47 K/uL (1.2-3.4); Monocytes # (manual) 0.78 K/uL (0.11-0.59); RBC Morphology Unremarkable; Toxic Vacuolation 1+
[2019-03-08] MEDS: INSULIN ASPART 100 UNITS/ML 3 ML PEN SC SCH ×4 (08:25→21:22)
[2019-03-08] MEDS: CLOPIDOGREL BISULFATE 75 MG TAB PO SCH (08:25)
[2019-03-08] MEDS: SERTRALINE HCL 50 MG TABLET PO SCH (08:25)
[2019-03-08] MEDS: cefTRIAXone SODIUM 1,000 MG in DEXTROSE 5% 50 ML IV SCH (09:01)
[2019-03-08 11:39] LABS: Troponin I 0.042 ng/ml (0-0.045)
[2019-03-08] MEDS: METOPROLOL TARTRATE 25 MG TAB PO SCH ×2 (12:28→20:42)
--- NOTE | 2019-03-08 12:39 | Urology Progress Note ---
Date of Service March 08, 2019 Patient appears somewhat more lethargic than she was yesterday. She apparently has had diarrhea on 2 occasions and says that she has some abdominal pain. On physical exam her abdomen is soft however she does complain of sort of velásquez sensitivity may be a little bit more on the right than the left. Discussed with the nursing staff they will get a C. difficile test. She is also somewhat tachycardic. She appears to have been afebrile since yesterday afternoon. Her urine culture is pansensitive E. coli. Apparently an ID consult was requested and C. difficile test is pending Patient will ultimately need ureteroscopy and/or lithotripsy. When she is stable and can be transferred home she will need follow-up to schedule these. We will continue to follow Physical Exam Vital Signs (Past 24 Hours): Last Vital Signs Temp 36.4 C L 03/08/19 07:16 Pulse 88 03/08/19 07:16 Resp 26 H 03/08/19 07:16 BP 139/98 03/08/19 07:16 Pulse Ox 94 03/08/19 07:16 Results & Data Laboratory Results Her white blood cell count is over 15,000 now but her lactate is now normal
[2019-03-08] MEDS: ONDANSETRON INJ 2 MG/ML 2 ML VIAL IV PRN (13:42)
--- NOTE | 2019-03-08 13:52 | Cardiology Consultation ---
Date of Consultation March 08, 2019 Assessment & Plan (1) Atrial fibrillation: Heart rate currently ranging from 100-115 bpm. She is asymptomatic with adequate blood pressure at this time. No indication for pressor support. Preliminary review of resting 2D transthoracic echocardiogram demonstrates preserved LV systolic function with moderate to severe mitral regurgitation and moderate tricuspid regurgitation. Continue low-dose metoprolol 12.5 mg twice daily. Platelets trending downward since admission likely secondary to sepsis. Repeat CBC in a.m., if platelets remain stable and patient in A. fib for greater than 24 hours will consider addition of intravenous heparin. Add aspirin 81 mg daily due to history of coronary artery disease. (2) Elevated troponin: Type II elevation secondary to demand in the setting of severe sepsis and atrial fibrillation with rapid ventricular response. No ischemic ECG changes. No regional wall motion of normality's per echocardiogram. (3) History of pacemaker: Will order pacemaker interrogation to assess atrial fibrillation burden over the past 8 months. (4) CAD (coronary artery disease), [place] coronary artery: (5) Severe sepsis with acute organ dysfunction due to Gram negative bacteria: Antibiotics and supportive care as per internal medicine. (6) Gram-negative bacteremia: (7) Facial asymmetry: Chronicity unknown. I will ask internal medicine to reevaluate as this is my first encounter with this patient. A stat CT will be ordered. Consider MRI if pacemaker is compatible. History of Present Illness Reason for Consultation: Atrial fibrillation Requesting Physician: Dr. Estella Ervin Attending Physician: Estella Ervin MD History of Present Illness Patient seen and examined the bedside. Follows with Dr. Pete due to history of tachybradycardia syndrome with permanent pacemaker placement, coronary disease with remote stent placement 2010, and dyslipidemia. Poor historian. Somewhat confused. Reports some paresthesias of her left upper extremity. Denies chest pain or shortness of breath. Oriented to person only. Converted to atrial fibrillation with rapid ventricular response at approximately 9:30 AM. Heart rate currently running between 101 110 bpm. Her blood pressure is within normal range. Low-dose beta-lyn, metoprolol 12.5 mg twice daily added. IV anticoagulation was withheld due to thrombocytopenia. Patient answers questions, however, is an unreliable historian currently due to underlying illness and baseline dementia. Most recent pacemaker interrogation performed September 2018 demonstrating 42 mode switching events with a 0% atrial fibrillation burden. Review of telemetry since admission demonstrates sinus rhythm, sinus arrhythmia, PAT, and PACs. Allergies Allergy/AdvReac Type Severity Reaction Status Date / Time No Known Allergies Allergy Unverified 08/21/17 14:01 Home Medications Home Medications Medication Instructions Recorded Confirmed Type atorvastatin 40 mg PO DAILY 03/06/19 03/06/19 History clopidogrel 75 mg PO DAILY 03/06/19 03/06/19 History glipizide 10 mg PO DAILY 03/06/19 03/06/19 History lisinopril 20 mg PO DAILY 03/06/19 03/06/19 History metformin 500 mg PO BID 03/06/19 03/06/19 History sertraline 25 mg PO DAILY 03/06/19 03/06/19 History Patient History Medical History History of pacemaker Atrial fibrillation CAD (coronary artery disease) Chronic cough Diabetes Family history non-contributory Hyperlipidemia Hypertension Tachy-morelia syndrome S/p PM placement Surgical History S/P appendectomy S/P cardiac cath PCI to RCA in 2010 S/P cardiac pacemaker procedure S/P cholecystectomy Family History Other Family history non-contributory Social History Communication Ability: Effective Beliefs That Will Affect Care: None Current Living Situation: Family Current Living Situation Comment: son Other Information That Helps Us Care for You: No Feels Safe at Home: Yes Safety Concerns: Feels Safe At This Time Smoking Status: Current every day smoker Hx Alcohol Use: No Hx Substance Use: No Review of Systems Pertinent positives noted per HPI, conference of 10 system review cannot be completed due to patient's medical condition and mental status. Physical Exam Vital Signs (Past 24 Hours): Last Vital Signs Temp 36.9 C 03/08/19 13:07 Pulse 105 H 03/08/19 13:07 Resp 20 03/08/19 13:07 BP 107/69 03/08/19 13:07 Pulse Ox 97 03/08/19 13:07 Physical Exam: General: NAD, confused, chronically ill. HEENT: Mucous membranes dry, normocephalic. Atraumatic. Conjunctiva pink, no scleral icterus. Neck: No carotid bruits, the carotid upstrokes are brisk. No JVD. No HJR Heart: Irregular rhythm, tachycardic, normal S1, S2. No murmur appreciated. Lungs: Coarse rhonchi bilaterally. No rales or wheeze appreciated. Abdomen: Normal bowel sounds. Soft. Nontender. No masses or organomegaly. No abdominal bruits. Extremities: No clubbing, cyanosis, or edema. Pulses: radial=2/4. Neuro: Left upper extremities paresthesias reported. Poor cooperation, moves all extremities. Oriented to person only. No focal weakness. Possible right sided facial asymmetry. (1) Atrial fibrillation Atrial fibrillation type: unspecified Qualified Code(s): I48.91 - Unspecified atrial fibrillation (2) CAD (coronary artery disease), [place] coronary artery Associated angina: without angina [place] vs. transplanted heart: [place] heart Qualified Code(s): I25.10 - Atherosclerotic heart disease of [place] coronary artery without angina pectoris
--- NOTE | 2019-03-08 14:32 | CT Scan Report ---
CT head/brain wo con CLINICAL HISTORY: 83 years-old Female presenting with altered mental status. TECHNIQUE: Multidetector CT imaging of the head was performed without the use of intravenous contrast . IV contrast: None. One or more dose lowering techniques were used consistent with the principles of ALARA (as low as reasonably achievable), including automatic exposure control, mA or kV adjustment t o individual patient size, and/or use of iterative reconstruction. COMPARISON: 03/06/2019. CT DOSE (mGy.cm): The estimated cumulative dose is 537.48 mGy.cm. FINDINGS: Supervisor Costuming topogram: The patient is edentulous. Proportional ventricular and sulcal prominence, likely age-related parenchymal volume loss. No hemorr carmen. Periventricular and subcortical white matter hypoattenuation, nonspecific but likely indicative of chronic small vessel ischemic change. No acute territorial infarct. No mass effect or midline cindi ft. No extra-axial fluid collection. Paranasal sinuses and mastoid air cells clear. Calvarium intact. Absent [place] lenses. IMPRESSION: 1. Chronic small vessel ischemic change. No acute intracranial abnormality. Electronically signed by: Khris Amanda M.D. 03/08/2019 2:31 PM
[2019-03-08] MEDS: ASPIRIN 81 MG ECTAB PO SCH (14:57)
--- NOTE | 2019-03-08 16:02 | Hospitalist Progress Note ---
Date of Service March 08, 2019 Assessment & Plan (1) Atrial fibrillation: Developed A. fib RVR, overnight, possible secondary to sepsis/acute illness Patient input from cardiology, patient recent pacemaker interrogation showed multiple episodes of paroxysmal A. 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 fib Patient continue with all cardiac meds, add an aspirin Cardiology following (3) Severe sepsis with acute organ dysfunction due to Gram negative bacteria: meets criteria for sepsis per CMS guideline presented with fever , tachycardia , elevated lactic acid level , acute renal failure , hypotension source of infection -obstructed ueteric stone , complicated UTI ( urine culture -gram negative bacilli /E. coli: Pansensitive leading to gram negative bactermia vitals improved after aggressive Iv hydration did not require pressors Lactic acid level normalized s/p cystoscopy with rt sided ureteric stone placement ID eval requested Urine culture: E. coli pansensitive, antibiotic adjusted to IV Rocephin repeat blood culture ordered, continue to follow (4) Acute renal failure superimposed on stage 3 chronic kidney disease: due to above , obstructed ureteric stone , severe sepsis , dehydration s/p ureteric stent plancement Cr improved with IV hydratiaon hold lisionopril avoid NSAIDs follow BMP (5) Gram-negative bacteremia: from complicated UTI /obstructed ureteric stone Urine and blood culture growing gram negative bacilli Pansensitive E. coli in urine culture, antibiotic changed to IV Rocephin repeat blood cultures ordered ID cosnulted (6) Hydronephrosis with renal and ureteral calculous obstruction: s/p rt ueteric stent placement appreciate input from Urology (7) Metabolic encephalopathy: baseline advanced dementia worsening of confusion , delirium due to acute infection severe sepsis cont treatment as oulined above fall precuation high risk for delirium avoid narcotis/BDZ (8) Hypotension: due to severe sepsis given IV fluid bolus cont iVF hold Lisinopril monitor in tele (9) UTI (urinary tract infection), bacterial: complicated UTI in setting of obstructed ureteric stone , leading to gram negative bacteremia Pansensitive E. coli, on IV Rocephin t ID eval requested CODE STATUS : FULL CODE Subjective Developed rapid A. fib RVR, Patient denies of any symptoms, More alert Base line dementia, oriented to person not No complaint of abdominal pain, tolerating diet No fever or chills Physical Exam Vital Signs (Past 24 Hours): Last Vital Signs Temp 36.5 C 03/08/19 15:09 Pulse 61 03/08/19 15:09 Resp 19 03/08/19 15:09 BP 117/60 03/08/19 15:09 Pulse Ox 95 03/08/19 15:09 ENMT: Mouth: + edentulous (Only has 1 lower tooth) Mallampati Class: II Neck: normal visual inspection Respiratory: Auscultation: lungs clear to auscultation bilaterally Cardiovascular: Rate/Rhythm: + abnormal rate and + abnormal rhythm (Irregularly irregular) Neurologic: awake and + confused; no focal motor deficits Psychiatric: Orientation: alert and oriented to person (Baseline advanced dementia) (1) Acute renal failure superimposed on stage 3 chronic kidney disease Acute renal failure type: unspecified Qualified Code(s): N17.9 - Acute kidney failure, unspecified; N18.3 - Chronic kidney disease, stage 3 (moderate) (2) Hypotension Hypotension type: hypotension due to hypovolemia Qualified Code(s): I95.89 - Other hypotension; E86.1 - Hypovolemia (3) Atrial fibrillation Atrial fibrillation type: unspecified Qualified Code(s): I48.91 - Unspecified atrial fibrillation
[2019-03-09] MEDS: SODIUM CHLORIDE 0.9% 1000ML 1,000 ML IV SCH ×2 (01:54→09:52)
--- NOTE | 2019-03-09 03:11 | Infectious Disease Consult ---
Date of Consultation March 08, 2019 Assessment & Plan (1) Severe sepsis with acute organ dysfunction due to Gram negative bacteria: Patient with gram-negative sepsis, likely E. coli obstructive status post right ureteral placement. Patient should continue on tracks identification blood cultures. Likely will range of 7 days of IV and clinical response, prolonged course of oral antibiotics. Will discuss with all involved. Will follow. (2) UTI (urinary tract infection), bacterial: (3) Escherichia coli infection: History of Present Illness Attending Physician: Estella Ervin MD History of Present Illness 83-year-old female with history of coronary artery disease, stage III chronic kidney disease, prior history of kidney stones, who was admitted to the hospital with several day history of progressively worsening right-sided abdominal and flank pain associated with difficulty urinating as well as fever, chills, and weakness. Gait emergency department were found to have evidence of sepsis, and subsequent studies showed impacted right UPJ stone. Has now undergone cystoscopy with ureteral stent placement and stone removal.Urine culture growing E. coli, blood culture growing gram-negative bacilli. Patient currently on ceftriaxone and feeling better.Flank pain currently 1-2 out of 10 in intensity. Allergies Allergy/AdvReac Type Severity Reaction Status Date / Time No Known Allergies Allergy Unverified 08/21/17 14:01 Home Medications Home Medications Medication Instructions Recorded Confirmed Type atorvastatin 40 mg PO DAILY 03/06/19 03/06/19 History clopidogrel 75 mg PO DAILY 03/06/19 03/06/19 History glipizide 10 mg PO DAILY 03/06/19 03/06/19 History lisinopril 20 mg PO DAILY 03/06/19 03/06/19 History metformin 500 mg PO BID 03/06/19 03/06/19 History sertraline 25 mg PO DAILY 03/06/19 03/06/19 History Patient History Medical History History of pacemaker Atrial fibrillation CAD (coronary artery disease) Chronic cough Diabetes Family history non-contributory Hyperlipidemia Hypertension Tachy-morelia syndrome S/p PM placement Surgical History S/P appendectomy S/P cardiac cath PCI to RCA in 2010 S/P cardiac pacemaker procedure S/P cholecystectomy Family History Other Family history non-contributory Social History Communication Ability: Effective Beliefs That Will Affect Care: None Current Living Situation: Family Current Living Situation Comment: son Other Information That Helps Us Care for You: No Feels Safe at Home: Yes Safety Concerns: Feels Safe At This Time Smoking Status: Current every day smoker Hx Alcohol Use: No Hx Substance Use: No Review of Systems All systems were reviewed and are negative except as per HPI Physical Exam Vital Signs (Past 24 Hours): Last Vital Signs Temp 36.6 C 03/08/19 23:26 Pulse 64 03/08/19 23:26 Resp 17 03/08/19 23:26 BP 144/68 H 03/08/19 23:26 Pulse Ox 94 03/08/19 23:26 Constitutional: WD/WN, vitals as above comfortable; no acute distress Eyes: PERRL, conjunctivae normal, anicteric sclerae ENMT: external ear and nose normal, oropharynx normal Neck: trachea midline, no thyromegaly neck nontender Respiratory: normal respiratory effort, lungs clear to auscultation normal percussion; does not use accessory muscles Cardiovascular: Rate/Rhythm: regular rate and regular rhythm Heart Sounds: normal S1 and normal S2; no gallop, no murmur and no cardiac rub Vessels: normal peripheral pulses; no JVD Gastrointestinal (Abdomen): Inspection/Auscultation: abdomen normal to inspection and normal bowel sounds Percussion/Palpation: no hepatosplenomegaly and no abdominal mass Right CVAT Musculoskeletal: no cyanosis or clubbing, extremities motor strength 5/5 Spine: thoracic spine normal to inspection and lumbar spine normal to inspection; no cervical spinal tenderness Skin: no rashes, warm and dry normal turgor; no lesions Neurologic: patellar DTR's 2+ bilat, sensation intact no focal motor deficits Psychiatric: A+Ox3, euthymic affect Orientation: cooperative Lymphatic: no cervical or axillary lymphadenopathy no inguinal lymphad enopathy Results & Data Laboratory Results Short CBC 03/08/19 Range/Units 05:58 WBC 15.61 H (4.8-10.8) K/uL Hgb 10.7 L (12.0-16.0) g/dL Hct 32.7 L (37-47) % Plt Count 61 L (130-400) K/uL BMP 03/08/19 05:58 Sodium 142 Potassium 4.6 Chloride 117 H Carbon Dioxide 19 L BUN 33 H Creatinine 0.93 Glucose 133 H Calcium 7.2 L Cardiac Enzymes 03/08/19 Range/Units 11:04 Troponin I 0.042 (0-0.045) ng/ml Diagnostic Findings Microbiology 03/06/19 20:50 Blood Blood Culture - Preliminary Gram negative bacilli 03/06/19 20:42 Blood Blood Culture - Preliminary Gram negative bacilli 03/06/19 22:52 Urine,Straight Cath Urine Culture - Final Escherichia coli CT abd pelvis IV con only CLINICAL HISTORY: 83 years-old Female presenting with Pt c/o Rt sided abd pain. TECHNIQUE: Multidetector CT of the abdomen and pelvis was performed after the administration of intravenous contrast. IV contrast: 94 mL of Optiray 320. One or more dose lowering techniques were used consistent with the principles of ALARA (as low as reasonably achievable), including automatic exposure control, mA or kV adjustment to individual patient size, and/or use of iterative reconstruction. COMPARISON: None. CT DOSE (mGy.cm): The estimated cumulative dose is 984.92. 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 Lung bases: Pacer leads noted to the right atrium and right ventricular apex. Faint calcification of papillary musculature in the left ventricle. Top normal cardiac size. No pericardial or pleural effusion. Minimal dependent changes likely atelectasis. Mosaic attenuation suggest small airways disease. Fat- containing right Bochdalek hernia. Liver: Overall normal morphology of the liver apart from a subcapsular hypoenhancing lenticular 2.6 x 1.4 cm lesion along the anterior medial left hepatic lobe. Mild periportal edema suggested. Few tiny well-defined hypodense lesions likely hepatic cysts or hamartomas. Patent hepatic vasculature. Biliary: No intrahepatic or extrahepatic biliary ductal dilatation. Normal gallbladder. Pancreas: Moderate parenchymal atrophy. Spleen: Normal. Adrenal glands: Normal. Kidneys and ureters: Delayed perfusion of the right kidney in comparison to the left with moderate pelvocaliectasis and distention of the right ureter to the level of an obstructing 9 mm calculus impacted at the right ureterovesical junction. Severe right perinephric fat infiltration with exuberant perinephric fluid. Dominant simple appearing upper pole left renal cyst. Parapelvic cysts also suggested at the lower pole the left kidney. Several smaller renal cysts noted bilaterally. Left ureter nondistended. Bladder: Normal. No bladder calculus. Pelvic organs: Uterus surgically absent. Cyst in the left adnexa possibly ovarian in origin and measuring less than 2 cm, which is simple appearing. The right ovary is not visualized. Bowel: Mild diffuse wall thickening of the colon. The appendix is normal. No bowel obstruction. Small hiatal hernia. Peritoneal cavity: No free fluid or intraperitoneal gas. Right retroperitoneal fluid as mentioned. Lymph nodes: No enlarged lymph nodes in the abdomen or pelvis. Vasculature: Atherosclerosis of the normal caliber abdominal aorta. IVC patent. Extensive irregularity of the infrarenal abdominal aorta despite lack of ectasia. Abdominal wall: Abdominal wall laxity with a small bowel containing ventral hernia in the infraumbilical region. Fat-containing inguinal hernias may also be present. Musculoskeletal: Degenerative changes of the spine. Osteopenia. IMPRESSION: 1. Obstructing 9 mm calculus impacted at the right ureterovesical junction with resultant moderate right hydroureteronephrosis. Given the degree of right perinephric fluid, calyceal rupture suspected. No additional renal or ureteral calculus. 2. Subcapsular indeterminate lesion along the anterior left hepatic lobe. Correlate for an underlying malignancy. Comparison to prior examinations would be helpful. 3. Simple appearing 2 cm left adnexal cyst, unexpected in a postmenopausal patient. Per the [employer] incidental findings II committee recommendations, this would be considered benign with no follow-up indicated in the late postmenopausal setting. 4. Apparent mild diffuse wall thickening of the colon is most likely due to underdistention an less there is symptomatology that would be suggest a mild c olitis. Electronically signed by: Khris Amanda M.D. 03/06/2019 10:05 PM Dictated: 03/06/[id number] Transcribed: 03/06/19 215
[2019-03-09 07:07] LABS: Hematocrit (blood only) 36.8 % (37-47); Hemoglobin 12.4 g/dL (12.0-16.0); Mean Corpuscular Hgb Conc 33.7 g/dL (32-36); Mean Corpuscular Volume 90.9 fL (80-100); Platelet Count 74 K/uL (130-400); RDW Coefficient of Variation 14.6 % (11.5-14.5); RDW Standard Deviation 48.5 fL (36.4-46.3); Red Blood Count 4.05 M/uL (4.2-5.4); White Blood Count 26.16 K/uL (4.8-10.8)
[2019-03-09 07:30] LABS: BUN Creatinine Ratio 63.4 (10-20); Calcium 7.9 mg/dl (8.5-10.1); Creatinine Clr Calc Pharmacy 44.2 ml/min; Est GFR (African American) 79.7; Est GFR (Non-African American) 68.7; Magnesium 2.4 mg/dl (1.8-2.4); Potassium 4.9 mmol/L (3.5-5.1)
[2019-03-09] MEDS: INSULIN ASPART 100 UNITS/ML 3 ML PEN SC SCH ×4 (08:11→21:38)
[2019-03-09] MEDS: cefTRIAXone SODIUM 1,000 MG in DEXTROSE 5% 50 ML IV SCH (08:43)
[2019-03-09] MEDS: METOPROLOL TARTRATE 25 MG TAB PO SCH ×2 (08:43→21:37)
[2019-03-09] MEDS: ASPIRIN 81 MG ECTAB PO SCH (08:43)
[2019-03-09] MEDS: ATORVASTATIN 40 MG TAB PO SCH (08:44)
[2019-03-09] MEDS: SERTRALINE HCL 50 MG TABLET PO SCH (08:44)
[2019-03-09] MEDS ORDERED: CLOPIDOGREL BISULFATE 75 MG TAB PO SCH (09:00)
--- NOTE | 2019-03-09 12:17 | Cardiology Progress Note ---
Date of Service March 09, 2019 Assessment & Plan (1) Atrial fibrillation: Patient spontaneously converted to normal sinus rhythm. Atrial fibrillation secondary to gram-negative sepsis/UTI. Continue low-dose beta- lyn therapy. I would not recommend intravenous heparin at this time. We wi ll continue to monitor. (2) Elevated troponin: Type II elevation secondary to demand in the setting of severe sepsis and atrial fibrillation with rapid ventricular response. No ischemic ECG changes. No regional wall motion of normality's per echocardiogram. (3) Mitral regurgitation: Moderate to severe. Patient appears compensated. (4) HTN (hypertension): Elevated currently, continue to monitor. (5) History of pacemaker: Interrogation reveals normal function with adequate battery life. No significant recurrent atrial fibrillation aside from 03/08/19. (6) CAD (coronary artery disease), [place] coronary artery: Continue aspirin, statin, and beta-lyn. (7) Severe sepsis with acute organ dysfunction due to Gram negative bacteria: Antibiotics and supportive care as per internal medicine. (8) Gram-negative bacteremia: (9) Facial asymmetry: Appears to be chronic. No evidence of CVA per repeat CT of the head. Subjective Patient seen and examined at the bedside. More alert today. Denies chest pain or shortness of breath. No palpitations or recurrent atrial fibrillation on telemetry. Blood cultures confirmed E. coli bacteremia. Pacemaker interrogation reviewed, rare brief salvos of paroxysmal atrial fibrillation and atrial tachycardia noted. Longest episode of atrial fibrillation occurred yesterday 03/08/19. Overall atrial for ablation burden less than 0.1%. Review of Systems All systems reviewed & are unremarkable except as noted in HPI & below Physical Exam Vital Signs (Past 24 Hours): Last Vital Signs Temp 36.8 C 03/09/19 11:42 Pulse 63 03/09/19 11:42 Resp 18 03/09/19 11:42 BP 165/88 H 03/09/19 11:42 Pulse Ox 94 03/09/19 07:10 Physical Exam: General: NAD, awake and alert, chronically ill. HEENT: Mucous membranes dry, normocephalic. Atraumatic. Conjunctiva pink, no scleral icterus. Neck: No carotid bruits, the carotid upstrokes are brisk. No JVD. No HJR Heart: Irregular rhythm, tachycardic, normal S1, S2. No murmur appreciated. Lungs: Coarse rhonchi bilaterally. No rales or wheeze appreciated. Abdomen: Normal bowel sounds. Soft. Nontender. No masses or organomegaly. No abdominal bruits. Extremities: No clubbing, cyanosis, or edema. Pulses: radial=2/4. Neuro: Left upper extremities paresthesias reported. Poor cooperation, moves all extremities. No focal weakness. Possible right sided facial asymmetry. (1) Atrial fibrillation Atrial fibrillation type: unspecified Qualified Code(s): I48.91 - Unspecified atrial fibrillation (2) Mitral regurgitation Cardiac valve disease etiology: nonrheumatic Qualified Code(s): I34.0 - Nonrheumatic mitral (valve) insufficiency (3) CAD (coronary artery disease), [place] coronary artery Associated angina: without angina [place] vs. transplanted heart: [place] heart Qualified Code(s): I25.10 - Atherosclerotic heart disease of [place] coronary artery without angina pectoris (4) HTN (hypertension) Hypertension type: essential hypertension Qualified Code(s): I10 - Essential (primary) hypertension
[2019-03-09] MEDS ORDERED: IPRATROPIUM BROMIDE NEB SOLN 0.02% 2.5 ML VIAL NEB PRN (13:10)
[2019-03-09] MEDS ORDERED: LEVALBUTEROL 1.25MG/0.5ML NEB NEB PRN (13:10)
--- NOTE | 2019-03-09 13:30 | XRay Report ---
XR chest 1V portable CLINICAL HISTORY: SOB COMPARISON STUDY: 03/07/2019 FINDINGS: The heart is mildly enlarged. There are developing bibasilar airspace opacities possibly re presenting a developing pneumonitis. Films subsequent to treatment are recommended in follow-up. Ther e are no significant pleural effusions. There are progressive arthritic and destructive changes invol ving the right shoulder.[ IMPRESSION: Developing basilar airspace opacities right greater than left, possibly representing a de veloping pneumonia. Clinical and radiographic follow-up is recommended. Electronically signed by: Kelvin Waite M.D. 03/09/2019 1:29 PM
[2019-03-09 13:31] LABS: Hemoglobin 12.2 g/dL (12.0-16.0); Mean Corpuscular Volume 91.6 fL (80-100); RDW Coefficient of Variation 14.5 % (11.5-14.5); Red Blood Count 4.04 M/uL (4.2-5.4); White Blood Count 29.62 K/uL (4.8-10.8)
[2019-03-09 13:32] LABS: Mean Platelet Volume 11.9 fL (7.4-10.4); Platelet Count 81 K/uL (130-400)
--- NOTE | 2019-03-09 13:46 | Hospitalist Progress Note ---
Date of Service March 09, 2019 Assessment & Plan (1) Right lower lobe pneumonia: Patient found to be coughing more, more shortness of breath, diffuse wheeze noted, Marked leukocytosis with white count elevated more than 26 repeat lab: Persistent elevation of white count of 29,000 with left shift Chest x-ray shows developing right lower lobe pneumonia (was not present on admission chest x-ray) Concern for aspiration, will admission with serious illness, patient was confused on first 2 days of admission We will add Zosyn (better gram-negative coverage in case of aspiration pneumonia), added doxycycline for atypical coverage Speech evaluation requested to assist dysphasia, continue strict aspiration precaution Present on Admission?: No (2) Thrombocytopenia: Platelet counts remains being low 60s70s, possible secondary to sepsis, Avoid antiplatelets, anticoagulants, Daily CBC ordered, Peripheral blood film for pathology review in a.m. lab Present on Admission?: Yes (3) Atrial fibrillation: Developed A. fib RVR, overnight, possible secondary to sepsis/acute illness Converted to sinus rhythm spontaneously, remains in rate controlled Continue on Lopressor 12.5 mg p.o. daily cardiology following , Appreciate input given marked Thrombocytopenia, short duration of atrial fibrillation, IV heparin is not ind icated at present Continue to monitor in telemetry Present on Admission?: No (4) Elevated troponin: Type II non-ST elevated [place]/demand ischemia in the setting of severe sepsis, hypotension's/rapid A. fib Patient continue with all cardiac meds, add an aspirin Cardiology following Present on Admission?: Yes (5) Severe sepsis with acute organ dysfunction due to Gram negative bacteria: meets criteria for sepsis per CMS guideline presented with fever , tachycardia , elevated lactic acid level , acute renal failure , hypotension source of infection -obstructed ueteric stone , complicated UTI ( urine culture -gram negative bacilli /E. coli: Pansensitive leading to gram negative bacteremia Repeat blood culture shows no growth vitals improved after aggressive Iv hydration did not require pressors Lactic acid level normalized s/p cystoscopy with rt sided ureteric stone placement ID eval requested Urine culture: E. coli pansensitive, antibiotic adjusted to IV Rocephin repeat blood culture ordered, continue to follow (6) Acute renal failure superimposed on stage 3 chronic kidney disease: Creatinine improved to baseline due to above , obstructed ureteric stone , severe sepsis , dehydration s/p ureteric stent placement Acute kidney failure resolved, creatinine improved to baseline patient shows evidence of volume overload, received IV fluids for severe sepsis, hypotension Ordered for 40 mg IV Lasix, lisinopril resumed, continue to monitor volume status (7) Gram-negative bacteremia: from complicated UTI /obstructed ureteric stone Urine and blood culture growing gram negative bacilli Pansensitive E. coli in urine culture, antibiotic changed to IV Rocephin Repeat blood culture no growth ID cosnulted (8) Hydronephrosis with renal and ureteral calculous obstruction: s/p rt ueteric stent placement appreciate input from Urology (9) Metabolic encephalopathy: Symptom has resolved, and awake and alert oriented to person and place answering question appropriately, very pleasant baseline advanced dementia Developed worsening of confusion , delirium due to acute infection /severe sepsis Concern for possible aspiration during agitation, obtundation- high risk for delirium avoid narcotis/BDZ (10) Hypotension: Resolved, blood pressure improved to baseline Lisinopril resumed due to severe sepsis Received aggressive IV fluid resuscitation, currently has a moist productive cou gh with diffuse wheezing concern for possible volume overload, will be given 1 dose 40 mg IV Lasix monitor in tele (11) UTI (urinary tract infection), bacterial: complicated UTI in setting of obstructed ureteric stone , leading to gram negative bacteremia Pansensitive E. coli, on IV Rocephin t ID eval requested CODE STATUS : FULL CODE Present on Admission?: Yes (12) HTN (hypertension): Blood pressure stable, resume lisinopril, (13) Mitral regurgitation: History of diastolic dysfunction, CHF with mitral regurgitation, evidence of volume overload noted, Ordered for 40 of IV Lasix x1, continue to monitor volume status Chronic CHF with diastolic dysfunction, possible acute decompensation due to volume overload, IV fluid resuscitation for acute infection Resume outpatient lisinopril Order for 1 dose of Lasix IV fluids discontinued Continue to monitor volume status Cardiology following closely (14) Escherichia coli infection: Complicated E. coli infection in urine leading to gram-negative bacteremia, treatment outlined as above (15) CAD (coronary artery disease), [place] coronary artery: No acute coronary event, continue outpatient cardiac meds, appreciate input from cardiology (16) History of pacemaker: Appreciate input from cardiology, pacemaker interrogation shows adequate battery life CODE STATUS: Full code DVT prophylaxis: SCD and teds Pharmacological anticoagulation avoided- thrombocytopenia patient is moderate to high risk for DVT given functional decline, Disposition: Lives at home with son, was independent in her ADLs Order for PT OT evaluation Patient and daughter is willing for rehab if indicated Subjective Patient appears to be more short of breath today, audible wheeze, moist cough noted, patient denies of any chest heaviness on asking More alert and awake, conversing appropriately Daughter visiting at bedside side Remains in sinus rhythm rate controlled, afebrile, stable vitals Physical Exam Vital Signs (Past 24 Hours): Last Vital Signs Temp 36.8 C 03/09/19 11:42 Pulse 63 03/09/19 11:42 Resp 18 03/09/19 11:42 BP 165/88 H 03/09/19 11:42 Pulse Ox 94 03/09/19 07:10 Constitutional: Elderly female, very pleasant, appears to be In respiratory distress, coughing intermittently ENMT: Mouth: + edentulous (Only has 1 lower tooth) Mallampati Class: II Neck: normal visual inspection Respiratory: + respiratory distress, + cough and + tachypneic Auscultation: + crackles, + rales and + wheezes Diffuse wheezing all lung martins Cardiovascular: Rate/Rhythm: + abnormal rate and + abnormal rhythm (Irregularly irregular) Gastrointestinal (Abdomen): Percussion/Palpation: abdomen soft; abdomen nontender Neurologic: PERRL, EOMI, accommodation nl, no face palsy, no dysarthria no focal motor deficits Psychiatric: Orientation: alert and oriented to person (Baseline advanced dementia) (1) Atrial fibrillation Atrial fibrillation type: unspecified Qualified Code(s): I48.91 - Unspecified atrial fibrillation (2) Acute renal failure superimposed on stage 3 chronic kidney disease Acute renal failure type: unspecified Qualified Code(s): N17.9 - Acute kidney failure, unspecified; N18.3 - Chronic kidney disease, stage 3 (moderate) (3) Hypotension Hypotension type: hypotension due to hypovolemia Qualified Code(s): I95.89 - Other hypotension; E86.1 - Hypovolemia (4) Right lower lobe pneumonia Pneumonia type: due to unspecified organism Qualified Code(s): J18.1 - Lobar pneumonia, unspecified organism (5) HTN (hypertension) Hypertension type: essential hypertension Qualified Code(s): I10 - Essential (primary) hypertension (6) Mitral regurgitation Cardiac valve disease etiology: nonrheumatic Qualified Code(s): I34.0 - Nonrheumatic mitral (valve) insufficiency (7) CAD (coronary artery disease), [place] coronary artery [place] vs. transplanted heart: [place] heart Associated angina: without angina Qualified Code(s): I25.10 - Atherosclerotic heart disease of [place] coronary artery without angina pectoris
[2019-03-09] MEDS ORDERED: FUROSEMIDE 40 MG in SYRINGE 0 ML IV ONE (14:00)
[2019-03-09 14:02] LABS: Basophils # (auto) 0.02 K/uL (0-0.2); Basophils % (auto) 0.1 %; Dohle Bodies 2+; Echinocytes 2+; Immature Granulocytes # (auto) 0.42 K/uL (0.00-0.02); Immature Granulocytes % (auto) 1.4 %; Lymphocytes # (auto) 1.25 K/uL (1.2-3.4); Lymphocytes % (auto) 4.2 %; Neutrophils # (auto) 27.03 K/uL (1.4-6.5); Neutrophils % (auto) 91.3 %
[2019-03-09] MEDS ORDERED: PIPERACILL/TAZOBAC CONSULT ACTIVE PRN (14:16)
[2019-03-09] MEDS ORDERED: PIPERACILLIN/TAZOBACTAM 2.25 GM in DEXTROSE 5% 100 ML IV SCH (14:30)
[2019-03-09] MEDS: LEVALBUTEROL 1.25MG/0.5ML NEB NEB SCH ×2 (14:46→19:09)
[2019-03-09] MEDS: IPRATROPIUM BROMIDE NEB SOLN 0.02% 2.5 ML VIAL NEB SCH ×2 (14:46→19:09)
--- NOTE | 2019-03-09 14:51 | Communication Note ---
Date of Service: March 09, 2019 Outpatient URO follow up has been arranged. Thank you for allowing us to participate in the care of this patient. Please contact our service with any additional concerns.
[2019-03-09] MEDS: DOXYCYCLINE HYCLATE 100 MG in DEXTROSE 5% 100 ML IV SCH ×2 (14:56→21:37)
[2019-03-09] MEDS ORDERED: PIPERACILLIN/TAZOBACTAM 4.5 GM in DEXTROSE 5% 100 ML IV ONE (15:00)
--- NOTE | 2019-03-09 15:08 | Infectious Disease Progress Nt ---
Date of Service March 09, 2019 Assessment & Plan (1) Escherichia coli sepsis: 83-year-old female with E. coli sepsis from obstructive uropathy now status post ureteral stent placement, with possible developing right lower lobe pneumonia. Given possibility of aspiration, Zosyn should provide adequate coverage for both processes. Length of IV antibiotics yet to be determined. Will follow. (2) Right lower lobe pneumonia: (3) UTI (urinary tract infection), bacterial: Subjective Patient seen in follow-up for sepsis with urinary tract infection and obstructive uropathy. Patient with increasing cough overnight, chest x-ray now shows possible developing pneumonia. Follow-up blood cultures remain negative. Gram-negative identified as same sensitive E. coli is in urine. Pro-calcitonin markedly elevated. Patient now on IV Zosyn. Review of Systems All systems reviewed & are unremarkable except as noted in HPI & below Physical Exam Vital Signs (Past 24 Hours): Last Vital Signs Temp 36.8 C 03/09/19 11:42 Pulse 87 03/09/19 14:49 Resp 18 03/09/19 14:49 BP 165/88 H 03/09/19 11:42 Pulse Ox 97 03/09/19 14:49 Constitutional: WD/WN, vitals as above comfortable; no acute distress Eyes: PERRL, conjunctivae normal, anicteric sclerae ENMT: external ear and nose normal, oropharynx normal Neck: trachea midline, no thyromegaly neck nontender Respiratory: normal percussion; no respiratory distress and does not use accessory muscles Auscultation: + rhonchi Cardiovascular: Rate/Rhythm: regular rate and regular rhythm Heart Sounds: normal S1 and normal S2; no gallop, no murmur and no cardiac rub Vessels: normal peripheral pulses; no JVD Gastrointestinal (Abdomen): Inspection/Auscultation: abdomen normal to inspection and normal bowel sounds Percussion/Palpation: no hepatosplenomegaly and no abdominal mass Minimal right CVAT Musculoskeletal: no cyanosis or clubbing, extremities motor strength 5/5 Spine: thoracic spine normal to inspection and lumbar spine normal to inspection; no cervical spinal tenderness Skin: no rashes, warm and dry normal turgor; no lesions Neurologic: patellar DTR's 2+ bilat, sensation intact no focal motor deficits Psychiatric: A+Ox3, euthymic affect Orientation: cooperative Lymphatic: no cervical or axillary lymphadenopathy no inguinal lymphadenopathy Results & Data Laboratory Results Short CBC 03/09/19 03/09/19 Range/Units 06:54 13:17 WBC 26.16 H 29.62 H (4.8-10.8) K/uL Hgb 12.4 12.2 (12.0-16.0) g/dL Hct 36.8 L 37.0 (37-47) % Plt Count 74 L 81 L (130-400) K/uL BMP 03/09/19 06:54 Sodium 142 Potassium 4.9 Chloride 117 H Carbon Dioxide 16 L BUN 50 H D Creatinine 0.79 Glucose 120 H Calcium 7.9 L Diagnostic Findings Microbiology 03/06/19 20:50 Blood Blood Culture - Final Escherichia coli 03/06/19 20:42 Blood Blood Culture - Final Escherichia coli 03/07/19 14:40 Blood Blood Culture - Preliminary No growth to date. 03/07/19 14:20 Blood Blood Culture - Preliminary No growth to date. 03/06/19 22:52 Urine,Straight Cath Urine Culture - Final Escherichia coli XR chest 1V portable CLINICAL HISTORY: SOB COMPARISON STUDY: 03/07/2019 FINDINGS: The heart is mildly enlarged. There are developing bibasilar airspace opacities possibly representing a developing pneumonitis. Films subsequent to treatment are recommended in follow-up. There are no significant pleural effusions. There are progressive arthritic and destructive changes involving the right shoulder.[ IMPRESSION: Developing basilar airspace opacities right greater than left, possibly representing a developing pneumonia. Clinical and radiographic follow- up is recommended. Electronically signed by: Kelvin Waite M.D. 03/09/2019 1:29 PM (1) Right lower lobe pneumonia Pneumonia type: due to unspecified organism Qualified Code(s): J18.1 - Lobar pneumonia, unspecified organism
[2019-03-09] MEDS: PIPERACILLIN/TAZOBACTAM 3.375 GM in DEXTROSE 5% 100 ML IV SCH (19:32)
[2019-03-10] MEDS: LEVALBUTEROL 1.25MG/0.5ML NEB NEB SCH ×4 (02:02→20:17)
[2019-03-10] MEDS: IPRATROPIUM BROMIDE NEB SOLN 0.02% 2.5 ML VIAL NEB SCH ×4 (02:02→20:17)
[2019-03-10] MEDS: PIPERACILLIN/TAZOBACTAM 3.375 GM in DEXTROSE 5% 100 ML IV SCH ×3 (03:57→20:34)
[2019-03-10 06:38] LABS: Hematocrit (blood only) 34.1 % (37-47); Hemoglobin 11.7 g/dL (12.0-16.0); Mean Corpuscular Hgb Conc 34.3 g/dL (32-36); Mean Corpuscular Volume 89.7 fL (80-100); Mean Platelet Volume 10.8 fL (7.4-10.4); Platelet Count 80 K/uL (130-400); RDW Coefficient of Variation 14.1 % (11.5-14.5); RDW Standard Deviation 46.5 fL (36.4-46.3); White Blood Count 18.33 K/uL (4.8-10.8)
[2019-03-10 07:03] LABS: BUN Creatinine Ratio 54.9 (10-20); Calcium 7.8 mg/dl (8.5-10.1); Creatinine Clr Calc Pharmacy 38.5 ml/min; Est GFR (African American) 68.1; Est GFR (Non-African American) 58.7; Potassium 3.6 mmol/L (3.5-5.1)
[2019-03-10] MEDS: INSULIN ASPART 100 UNITS/ML 3 ML PEN SC SCH ×4 (08:45→20:43)
[2019-03-10] MEDS: ATORVASTATIN 40 MG TAB PO SCH (08:46)
[2019-03-10] MEDS: METOPROLOL TARTRATE 25 MG TAB PO SCH ×2 (08:46→20:34)
[2019-03-10] MEDS: SERTRALINE HCL 50 MG TABLET PO SCH (08:47)
[2019-03-10] MEDS: ASPIRIN 81 MG ECTAB PO SCH (08:47)
[2019-03-10] MEDS: DOXYCYCLINE HYCLATE 100 MG in DEXTROSE 5% 100 ML IV SCH ×2 (08:50→20:36)
--- NOTE | 2019-03-10 10:52 | Cardiology Progress Note ---
Date of Service March 10, 2019 Assessment & Plan (1) Atrial fibrillation: Brief salvos of asymptomatic atrial fibrillation recorded overnight. Overall atrial fibrillation burden is low per pacemaker interrogation. Continue low-dose beta-lyn therapy. I would not recommend intravenous heparin at this time. Continue to monitor. (2) Elevated troponin: Type II elevation secondary to demand in the setting of severe sepsis and atrial fibrillation with rapid ventricular response. No ischemic ECG changes. No regional wall motion of normalities per echocardiogram. (3) Mitral regurgitation: Moderate to severe. Patient appears compensated. (4) HTN (hypertension): Trending downward. Continue to monitor.. (5) History of pacemaker: Interrogation reveals normal function with adequate battery life. No significant recurrent atrial fibrillation aside from 03/08/19. (6) CAD (coronary artery disease), [place] coronary artery: Continue aspirin, statin, and beta-lyn. (7) Severe sepsis with acute organ dysfunction due to Gram negative bacteria: Antibiotics and supportive care as per internal medicine/urology. (8) Gram-negative bacteremia: Subjective Patient seen and examined the bedside. More alert today. Denies chest pain or palpitations. Brief subhash of atrial fibrillation recorded overnight. Blood pressure improved. Poor historian. She offers no complaints at this time. Review of Systems All systems reviewed & are unremarkable except as noted in HPI & below Physical Exam Vital Signs (Past 24 Hours): Last Vital Signs Temp 36.6 C 03/10/19 07:08 Pulse 76 03/10/19 07:08 Resp 21 03/10/19 07:08 BP 156/84 H 03/10/19 07:08 Pulse Ox 100 03/10/19 07:08 Physical Exam: General: NAD, awake and alert, chronically ill. HEENT: Mucous membranes dry, normocephalic. Atraumatic. Conjunctiva pink, no scleral icterus. Neck: No carotid bruits, the carotid upstrokes are brisk. No JVD. No HJR Heart: Regular rhythm, normal S1, S2. No murmur appreciated. Lungs: Coarse rhonchi bilaterally. No rales or wheeze appreciated. Abdomen: Normal bowel sounds. Soft. Nontender. No masses or organomegaly. No abdominal bruits. Extremities: No clubbing, cyanosis, or edema. Pulses: radial=2/4. Neuro: Mild right sided facial asymmetry unchanged. No focal weakness. (1) Atrial fibrillation Atrial fibrillation type: unspecified Qualified Code(s): I48.91 - Unspecified atrial fibrillation (2) Mitral regurgitation Cardiac valve disease etiology: nonrheumatic Qualified Code(s): I34.0 - Nonrheumatic mitral (valve) insufficiency (3) CAD (coronary artery disease), [place] coronary artery Associated angina: without angina [place] vs. transplanted heart: [place] heart Qualified Code(s): I25.10 - Atherosclerotic heart disease of [place] coronary artery without angina pectoris (4) HTN (hypertension) Hypertension type: essential hypertension Qualified Code(s): I10 - Essential (primary) hypertension
[2019-03-10] MEDS: METOPROLOL TARTRATE 1 MG/ML VIAL IV PRN ×2 (17:19→23:46)
[2019-03-10] MEDS ORDERED: METOPROLOL TARTRATE 25 MG TAB PO STA (17:36)
--- NOTE | 2019-03-10 18:14 | Hospitalist Progress Note ---
Date of Service March 10, 2019 Assessment & Plan (1) Atrial fibrillation: Paroxysmal A. fib, rapid A. fib RVR this afternoon, IV Lopressor 5 mg x 1, increased dose of p.o. Lopressor Cardiology updated IV heparin not initiated secondary to thrombocytopenia /high bleeding risk Continue to monitor patient in telemetry Daughter updated over phone (2) Right lower lobe pneumonia: Chest x-ray shows developing right lower lobe pneumonia (was not present on admission chest x-ray) Noted on IV doxycycline, Zosyn, Clinically much improved today with improvement of leukocytosis Speech evaluation requested appreciate eval, No evidence of dysphagia or aspiration noted, in agreement with moist means diet (patient does not have teeth, with aspiration precaution (3) Thrombocytopenia: Platelet counts remains being low 60s70s, possible secondary to sepsis, Avoid antiplatelets, anticoagulants, Daily CBC ordered, Peripheral blood film for pathology review in a.m. lab (4) Elevated troponin: Type II non-ST elevated [place]/demand ischemia in the setting of severe sepsis, hypotension's/rapid A. fib Patient continue with all cardiac meds, add an aspirin Cardiology following (5) Severe sepsis with acute organ dysfunction due to Gram negative bacteria: meets criteria for sepsis per CMS guideline presented with fever , tachycardia , elevated lactic acid level , acute renal failure , hypotension source of infection -obstructed ueteric stone , complicated UTI ( urine culture -gram negative bacilli /E. coli: Pansensitive leading to gram negative bacteremia Repeat blood culture shows no growth vitals improved after aggressive Iv hydration did not require pressors Lactic acid level normalized s/p cystoscopy with rt sided ureteric stone placement ID eval requested Urine culture: E. coli pansensitive, Antibiotic adjusted IV Zosyn for right-sided pneumonia Present on Admission?: Yes (6) Acute renal failure superimposed on stage 3 chronic kidney disease: Resolved Creatinine improved to baseline due to above , obstructed ureteric stone , severe sepsis , dehydration s/p ureteric stent placement Acute kidney failure resolved, creatinine improved to baseline patient shows evidence of volume overload, received (7) Gram-negative bacteremia: from complicated UTI /obstructed ureteric stone Urine and blood culture growing gram negative bacilli Pansensitive E. coli in urine culture, Continue IV antibiotic: Zosyn Repeat blood culture no growth ID consulted, appreciate input (8) Hydronephrosis with renal and ureteral calculous obstruction: s/p rt ueteric stent placement appreciate input from Urology Scheduled for outpatient follow-up (9) Metabolic encephalopathy: Symptom has resolved, and awake and alert oriented to person and place answering question appropriately, very pleasant baseline advanced dementia Developed worsening of confusion , delirium due to acute infection /severe sepsis high risk for delirium avoid narcotics/benzodiazepine (10) Hypotension: Resolved, blood pressure improved to baseline Lisinopril resumed (11) UTI (urinary tract infection), bacterial: complicated UTI in setting of obstructed ureteric stone , leading to gram negative bacteremia Pansensitive E. coli, Treated with IV Zosyn ID following CODE STATUS : FULL CODE (12) HTN (hypertension): Blood pressure stable, lisinopril resumed (13) Mitral regurgitation: History of diastolic dysfunction, CHF with mitral regurgitation, evidence of volume overload noted, Ordered for 40 of IV Lasix x1, continue to monitor volume status Chronic CHF with diastolic dysfunction, possible acute decompensation due to volume overload, IV fluid resuscitation for acute infection Resume outpatient lisinopril Respiratory status cough/rales improved after 40 mg IV Lasix, ordered for repeat chest x-ray tomorrow Continue to monitor volume status Cardiology following closely (14) Escherichia coli infection: Complicated E. coli infection in urine leading to gram-negative bacteremia, treatment outlined as above (15) CAD (coronary artery disease), [place] coronary artery: No acute coronary event, continue outpatient cardiac meds, appreciate input from cardiology (16) History of pacemaker: Appreciate input from cardiology, pacemaker interrogation shows adequate battery life CODE STATUS: Full code DVT prophylaxis: SCD and teds Pharmacological anticoagulation avoided- thrombocytopenia patient is moderate to high risk for DVT given functional decline, Disposition: Order for PT OT evaluation Recommend rehab, Referral made to [facility] and [place] Update given to Dr. Rossi, family prefers [facility] for SNF social service following for discharge plan Subjective Cough and shortness of breath has improved, no audible wheeze More awake and alert today Developed rapid A. fib RVR Patient denies of any symptoms of palpitation, dizzy spells, chest heaviness Ordered per IV Lopressor 5 mg x 1 On low-dose Lopressor 12.5 mg twice daily Order to increase the dose to 25 mg twice daily/giving extra 12.5 mg p.o. x1 now Abraham of care discussed with cardiology, in agreement Physical Exam Vital Signs (Past 24 Hours): Last Vital Signs Temp 36.9 C 03/10/19 15:39 Pulse 137 H 03/10/19 17:19 Resp 22 03/10/19 15:39 BP 126/70 03/10/19 15:39 Pulse Ox 94 03/10/19 16:18 ENMT: Mouth: + edentulous (Only has 1 lower tooth) Mallampati Class: II Neck: normal visual inspection Respiratory: no respiratory distress and no cough Auscultation: + diminished lung sounds; no rales and no wheezes Cardiovascular: Rate/Rhythm: + abnormal rate and + abnormal rhythm (Irregularly irregular) Gastrointestinal (Abdomen): Percussion/Palpation: abdomen soft; abdomen nontender Neurologic: PERRL, EOMI, accommodation nl, no face palsy, no dysarthria no focal motor deficits Psychiatric: Orientation: alert and oriented to person (Baseline advanced dementia) (1) Atrial fibrillation Atrial fibrillation type: unspecified Qualified Code(s): I48.91 - Unspecified atrial fibrillation (2) Mitral regurgitation Cardiac valve disease etiology: nonrheumatic Qualified Code(s): I34.0 - Nonrheumatic mitral (valve) insufficiency (3) CAD (coronary artery disease), [place] coronary artery Associated angina: without angina [place] vs. transplanted heart: [place] heart Qualified Code(s): I25.10 - Atherosclerotic heart disease of [place] coronary artery without angina pectoris (4) Acute renal failure superimposed on stage 3 chronic kidney disease Acute renal failure type: unspecified Qualified Code(s): N17.9 - Acute kidney failure, unspecified; N18.3 - Chronic kidney disease, stage 3 (moderate) (5) Right lower lobe pneumonia Pneumonia type: due to unspecified organism Qualified Code(s): J18.1 - Lobar pneumonia, unspecified organism (6) HTN (hypertension) Hypertension type: essential hypertension Qualified Code(s): I10 - Essential (primary) hypertension (7) Hypotension Hypotension type: hypotension due to hypovolemia Qualified Code(s): I95.89 - Other hypotension; E86.1 - Hypovolemia
--- NOTE | 2019-03-10 21:06 | Infectious Disease Progress Nt ---
Date of Service March 10, 2019 Assessment & Plan (1) Escherichia coli sepsis: 83-year-old female with E. coli sepsis from obstructive uropathy now status post ureteral stent placement, with possible developing right lower lobe pneumonia. Given possibility of aspiration, Zosyn should provide adequate coverage for both processes. Length of IV antibiotics yet to be determined. Will follow. (2) Right lower lobe pneumonia: (3) UTI (urinary tract infection), bacterial: Subjective Patient seen in follow-up for sepsis and urinary tract infection. Developed atrial fibrillation, now being treated with beta-lyn. Cough and shortness of breath slightly better. Remains afebrile. Tolerating antibiotics without apparent difficulty. Review of Systems All systems reviewed & are unremarkable except as noted in HPI & below Physical Exam Vital Signs (Past 24 Hours): Last Vital Signs Temp 36.9 C 03/10/19 18:55 Pulse 104 H 03/10/19 20:19 Resp 17 03/10/19 20:19 BP 147/79 H 03/10/19 20:18 Pulse Ox 93 03/10/19 20:19 Constitutional: WD/WN, vitals as above comfortable; no acute distress Eyes: PERRL, conjunctivae normal, anicteric sclerae ENMT: external ear and nose normal, oropharynx normal Neck: trachea midline, no thyromegaly neck nontender Respiratory: normal respiratory effort, lungs clear to auscultation normal percussion; no respiratory distress and does not use accessory muscles Auscultation: + rhonchi Cardiovascular: Rate/Rhythm: regular rate and regular rhythm Heart Sounds: normal S1 and normal S2; no gallop, no murmur and no cardiac rub Vessels: normal peripheral pulses; no JVD Gastrointestinal (Abdomen): Inspection/Auscultation: abdomen normal to inspection and normal bowel sounds Percussion/Palpation: no hepatosplenomegaly and no abdominal mass Musculoskeletal: no cyanosis or clubbing, extremities motor strength 5/5 Spine: thoracic spine normal to inspection and lumbar spine normal to inspection; no cervical spinal tenderness Skin: no rashes, warm and dry normal turgor; no lesions Neurologic: patellar DTR's 2+ bilat, sensation intact no focal motor deficits Psychiatric: A+Ox3, euthymic affect Orientation: cooperative Lymphatic: no cervical or axillary lymphadenopathy no inguinal lymphadenopathy Results & Data Laboratory Results Short CBC 03/10/19 Range/Units 05:55 WBC 18.33 H D (4.8-10.8) K/uL Hgb 11.7 L (12.0-16.0) g/dL Hct 34.1 L (37-47) % Plt Count 80 L (130-400) K/uL BMP 03/10/19 05:55 Sodium 142 Potassium 3.6 D Chloride 114 H Carbon Dioxide 21 BUN 49 H Creatinine 0.90 Glucose 129 H Calcium 7.8 L Diagnostic Findings Microbiology 03/06/19 20:50 Blood Blood Culture - Final Escherichia coli 03/06/19 20:42 Blood Blood Culture - Final Escherichia coli 03/07/19 14:40 Blood Blood Culture - Preliminary No growth to date. 03/07/19 14:20 Blood Blood Culture - Preliminary No growth to date. 03/06/19 22:52 Urine,Straight Cath Urine Culture - Final Escherichia coli (1) Right lower lobe pneumonia Pneumonia type: due to unspecified organism Qualified Code(s): J18.1 - Lobar pneumonia, unspecified organism
[2019-03-11] MEDS: IPRATROPIUM BROMIDE NEB SOLN 0.02% 2.5 ML VIAL NEB SCH ×4 (01:45→19:39)
[2019-03-11] MEDS: LEVALBUTEROL 1.25MG/0.5ML NEB NEB SCH ×4 (01:45→19:39)
[2019-03-11] MEDS: PIPERACILLIN/TAZOBACTAM 3.375 GM in DEXTROSE 5% 100 ML IV SCH ×3 (04:44→20:38)
[2019-03-11] MEDS ORDERED: dilTIAZem HCl 5 MG/ML 5 ML VIAL IV ONE (05:30)
[2019-03-11 06:28] LABS: Hematocrit (blood only) 35.9 % (37-47); Hemoglobin 12.4 g/dL (12.0-16.0); Mean Corpuscular Hgb Conc 34.5 g/dL (32-36); Mean Corpuscular Volume 88.9 fL (80-100); RDW Coefficient of Variation 14.1 % (11.5-14.5); Red Blood Count 4.04 M/uL (4.2-5.4); White Blood Count 11.85 K/uL (4.8-10.8)
[2019-03-11 06:48] LABS: Mean Platelet Volume 10.7 fL (7.4-10.4); Platelet Count 87 K/uL (130-400)
[2019-03-11 06:51] LABS: BUN Creatinine Ratio 41.7 (10-20); Calcium 8.1 mg/dl (8.5-10.1); Creatinine Clr Calc Pharmacy 48.6 ml/min; Est GFR (African American) 89.1; Est GFR (Non-African American) 76.9
--- NOTE | 2019-03-11 07:20 | XRay Report ---
XR chest 1V portable CLINICAL HISTORY: pneumonia COMPARISON STUDY: 03/09/2019 FINDINGS: Unchanging right basilar parenchymal infiltrate. Minimal infiltrative process left base. Pe rmanent bipolar cardiac pacemaker. Severe degenerative change right shoulder. IMPRESSION: Unchanging infiltrative process right base. Minimal infiltrate left base. The above report was generated using voice recognition software. It may contain grammatical, syntax or spelling errors. Electronically signed by: Jalen Chacon M.D. 03/11/2019 7:18 AM
[2019-03-11] MEDS: METOPROLOL TARTRATE 25 MG TAB PO SCH ×2 (08:07→20:38)
[2019-03-11] MEDS: ATORVASTATIN 40 MG TAB PO SCH (08:07)
[2019-03-11] MEDS: ASPIRIN 81 MG ECTAB PO SCH (08:07)
[2019-03-11] MEDS: SERTRALINE HCL 50 MG TABLET PO SCH (08:08)
[2019-03-11] MEDS: INSULIN ASPART 100 UNITS/ML 3 ML PEN SC SCH ×4 (08:09→21:05)
[2019-03-11] MEDS: DOXYCYCLINE HYCLATE 100 MG in DEXTROSE 5% 100 ML IV SCH (08:15)
[2019-03-11] MEDS ORDERED: METOPROLOL TARTRATE 1 MG/ML VIAL IV STA (13:39)
--- NOTE | 2019-03-11 13:42 | Cardiology Progress Note ---
Date of Service March 11, 2019 Assessment & Plan (1) Atrial fibrillation: Patient converted to what appears to be atrial flutter with rapid ventricular response yesterday. Heart rate ranging from 120-130 bpm however she is asymptomatic. 5 mg of intravenous Lopressor will be given now. If she remains in atrial flutter greater than 24 hours will initiate IV heparin and continue to monitor. Consider titration of oral metoprolol pending clinical response to IV Lopressor. 40 meq of potassium chloride ordered. Recommend maintain serum potassium level greater than 4.0. (2) Elevated troponin: Type II elevation secondary to demand in the setting of severe sepsis and atrial fibrillation with rapid ventricular response. No ischemic ECG changes. No regional wall motion of normalities per echocardiogram. (3) Mitral regurgitation: Moderate to severe. Patient appears compensated. (4) HTN (hypertension): Controlled. Monitor. (5) History of pacemaker: Interrogation reveals normal function with adequate battery life. No significant recurrent atrial fibrillation aside from current hospitalization. (6) CAD (coronary artery disease), [place] coronary artery: Continue aspirin, statin, and beta-lyn. (7) Severe sepsis with acute organ dysfunction due to Gram negative bacteria: Antibiotics and supportive care as per internal medicine/urology. (8) Gram-negative bacteremia: Subjective Patient seen and examined the bedside. More alert today. Denies chest pain or palpitations. Patient converted to atrial flutter yesterday. Heart rate ranging from 120-130 beats. Denies any palpitations. Denies chest pain or shortness of breath. Appetite is adequate. Offers no other complaints at this time. Review of Systems All systems reviewed & are unremarkable except as noted in HPI & below Physical Exam Vital Signs (Past 24 Hours): Last Vital Signs Temp 36.6 C 03/11/19 11:06 Pulse 101 H 03/11/19 11:06 Resp 19 03/11/19 11:06 BP 116/86 03/11/19 11:06 Pulse Ox 97 03/11/19 11:41 Physical Exam: General: NAD, AAO x3, well nourished. HEENT: Normocephalic. Atraumatic. Conjunctiva pink, no scleral icterus. Neck: No carotid bruits, the carotid upstrokes are brisk. No JVD. No HJR Heart: Irregular rhythm, tachycardic. No murmur appreciated. Point of maximal intensity is not displaced. No RV heave. Lungs: Clear bilateral without rales , rhonchi, or wheeze. Abdomen: Normal bowel sounds. Soft. Nontender. No masses or organomegaly. No abdominal bruits. Extremities: No clubbing, cyanosis, or edema. Pulses: radial=2/4, Dorsalis pedis =2/4. Neuro: Cranial nerves grossly intact. No focal motor deficit. (1) Atrial fibrillation Atrial fibrillation type: unspecified Qualified Code(s): I48.91 - Unspecified atrial fibrillation (2) Mitral regurgitation Cardiac valve disease etiology: nonrheumatic Qualified Code(s): I34.0 - Nonrheumatic mitral (valve) insufficiency (3) CAD (coronary artery disease), [place] coronary artery Associated angina: without angina [place] vs. transplanted heart: [place] heart Qualified Code(s): I25.10 - Atherosclerotic heart disease of [place] coronary artery without angina pectoris (4) HTN (hypertension) Hypertension type: essential hypertension Qualified Code(s): I10 - Essential (primary) hypertension
[2019-03-11] MEDS ORDERED: POTASSIUM CHLORIDE 10 MEQ TABCR PO ONE (13:45)
--- NOTE | 2019-03-11 17:45 | Hospitalist Progress Note ---
Date of Service March 11, 2019 Assessment & Plan (1) Atrial fibrillation: Converted to normal sinus, at present rate controlled with beta-lyn Appreciate input from cardiology Not a candidate for IV heparin anticoagulation secondary to thrombocytopenia, bleeding risk Continue to monitor patient in telemetry (2) Right lower lobe pneumonia: Chest x-ray shows developing right lower lobe pneumonia (was not present on admission chest x-ray) On doxycycline, Zosyn Clinically much improved Normal white count Speech evaluation requested appreciate eval, No evidence of dysphagia or aspiration noted, in agreement with moist means diet (patient does not have teeth, with aspiration precaution (3) Thrombocytopenia: Platelet counts remains being low 60s70s, possible secondary to sepsis, Avoid antiplatelets, anticoagulants, Daily CBC ordered, (4) Elevated troponin: Type II non-ST elevated [place]/demand ischemia in the setting of severe sepsis, hypotension's/rapid A. fib Patient continue with all cardiac meds, add an aspirin Cardiology following (5) Severe sepsis with acute organ dysfunction due to Gram negative bacteria: meets criteria for sepsis per CMS guideline presented with fever , tachycardia , elevated lactic acid level , acute renal failure , hypotension source of infection -obstructed ueteric stone , complicated UTI ( urine culture -gram negative bacilli /E. coli: Pansensitive leading to gram negative bacteremia Repeat blood culture shows no growth vitals improved after aggressive Iv hydration did not require pressors Lactic acid level normalized s/p cystoscopy with rt sided ureteric stone placement ID eval requested Urine culture: E. coli pansensitive, Antibiotic adjusted IV Zosyn for right-sided pneumonia (6) Acute renal failure superimposed on stage 3 chronic kidney disease: Resolved Creatinine improved to baseline due to above , obstructed ureteric stone , severe sepsis , dehydration s/p ureteric stent placement Acute kidney failure resolved, creatinine improved to baseline patient shows evidence of volume overload, received (7) Gram-negative bacteremia: from complicated UTI /obstructed ureteric stone Urine and blood culture growing gram negative bacilli Pansensitive E. coli in urine culture, Continue IV antibiotic: Zosyn Repeat blood culture no growth ID consulted, appreciate input (8) Hydronephrosis with renal and ureteral calculous obstruction: s/p rt ueteric stent placement appreciate input from Urology Scheduled for outpatient follow-up (9) Metabolic encephalopathy: Symptom has resolved, and awake and alert oriented to person and place answering question appropriately, very pleasant baseline advanced dementia Developed worsening of confusion , delirium due to acute infection /severe sepsis high risk for delirium avoid narcotics/benzodiazepine (10) Hypotension: Resolved, blood pressure improved to baseline Lisinopril resumed (11) UTI (urinary tract infection), bacterial: complicated UTI in setting of obstructed ureteric stone , leading to gram negative bacteremia Pansensitive E. coli, Treated with IV Zosyn ID following CODE STATUS : FULL CODE (12) HTN (hypertension): Blood pressure stable, lisinopril resumed (13) Mitral regurgitation: History of diastolic dysfunction, CHF with mitral regurgitation, evidence of volume overload noted, Volume status appears to be stable now, Chronic CHF with diastolic dysfunction, Resume outpatient lisinopril Continue to monitor volume status Cardiology following closely (14) Escherichia coli infection: Complicated E. coli infection in urine leading to gram-negative bacteremia, treatment outlined as above (15) CAD (coronary artery disease), [place] coronary artery: No acute coronary event, continue outpatient cardiac meds, appreciate input from cardiology (16) History of pacemaker: Appreciate input from cardiology, pacemaker interrogation shows adequate battery life CODE STATUS: Full code DVT prophylaxis: SCD and teds Pharmacological anticoagulation avoided- thrombocytopenia patient is moderate to high risk for DVT given functional decline, Disposition: Order for PT OT evaluation Recommend rehab, Referral made to [facility] and [facility] following for discharge plan Subjective Feels tired and weak today, no complaint of cough, afebrile, no shortness of breath or dyspnea on exertion Heart rate remains stable Converted to sinus, currently rate controlled Physical Exam Vital Signs (Past 24 Hours): Last Vital Signs Temp 36.7 C 03/11/19 15:24 Pulse 70 03/11/19 15:24 Resp 16 03/11/19 15:24 BP 138/80 03/11/19 15:24 Pulse Ox 95 03/11/19 15:24 ENMT: Mouth: + edentulous (Only has 1 lower tooth) Mallampati Class: II Neck: normal visual inspection Respiratory: no respiratory distress and no cough Auscultation: + diminished lung sounds; no rales and no wheezes Cardiovascular: RRR, no murmur, no edema Gastrointestinal (Abdomen): Percussion/Palpation: abdomen soft; abdomen nontender Neurologic: PERRL, EOMI, accommodation nl, no face palsy, no dysarthria no focal motor deficits Psychiatric: Orientation: alert and oriented to person (Baseline advanced dementia) (1) Atrial fibrillation Atrial fibrillation type: unspecified Qualified Code(s): I48.91 - Unspecified atrial fibrillation (2) Mitral regurgitation Cardiac valve disease etiology: nonrheumatic Qualified Code(s): I34.0 - Nonrheumatic mitral (valve) insufficiency (3) CAD (coronary artery disease), [place] coronary artery Associated angina: without angina [place] vs. transplanted heart: [place] heart Qualified Code(s): I25.10 - Atherosclerotic heart disease of [place] coronary artery without angina pectoris (4) Acute renal failure superimposed on stage 3 chronic kidney disease Acute renal failure type: unspecified Qualified Code(s): N17.9 - Acute kidney failure, unspecified; N18.3 - Chronic kidney disease, stage 3 (moderate) (5) Right lower lobe pneumonia Pneumonia type: due to unspecified organism Qualified Code(s): J18.1 - Lobar pneumonia, unspecified organism (6) HTN (hypertension) Hypertension type: essential hypertension Qualified Code(s): I10 - Essential (primary) hypertension (7) Hypotension Hypotension type: hypotension due to hypovolemia Qualified Code(s): I95.89 - Other hypotension; E86.1 - Hypovolemia
[2019-03-12] MEDS: DOXYCYCLINE HYCLATE 100 MG in DEXTROSE 5% 100 ML IV SCH (00:45)
[2019-03-12] MEDS: IPRATROPIUM BROMIDE NEB SOLN 0.02% 2.5 ML VIAL NEB SCH ×4 (01:58→19:08)
[2019-03-12] MEDS: LEVALBUTEROL 1.25MG/0.5ML NEB NEB SCH ×4 (01:59→19:08)
[2019-03-12] MEDS: PIPERACILLIN/TAZOBACTAM 3.375 GM in DEXTROSE 5% 100 ML IV SCH ×2 (03:50→12:10)
[2019-03-12] MEDS: ACETAMINOPHEN 325 MG TAB PO PRN (03:59)
[2019-03-12] MEDS: ONDANSETRON INJ 2 MG/ML 2 ML VIAL IV PRN (04:08)
[2019-03-12] MEDS ORDERED: METOPROLOL TARTRATE 25 MG TAB PO SCH (05:30)
[2019-03-12] MEDS: ASPIRIN 81 MG ECTAB PO SCH (07:59)
[2019-03-12] MEDS: SERTRALINE HCL 50 MG TABLET PO SCH (07:59)
[2019-03-12] MEDS: ATORVASTATIN 40 MG TAB PO SCH (07:59)
[2019-03-12] MEDS: INSULIN ASPART 100 UNITS/ML 3 ML PEN SC SCH ×4 (08:00→20:55)
--- NOTE | 2019-03-12 10:46 | Cardiology Progress Note ---
Date of Service March 12, 2019 Assessment & Plan (1) Atrial fibrillation: Currently sinus rhythm. Increase metoprolol to 25 mg 3 times daily. Repeat basic metabolic panel today. Replace electro lites as indicated. (2) Elevated troponin: Type II elevation secondary to demand in the setting of severe sepsis and atrial fibrillation with rapid ventricular response. No ischemic ECG changes. No regional wall motion of normalities per echocardiogram. (3) Mitral regurgitation: Moderate to severe. Patient appears compensated. (4) HTN (hypertension): Uncontrolled. Titrate beta-lyn as noted above. Restart lisinopril 20 mg daily (outpatient dose). (5) History of pacemaker: Interrogation reveals normal function with adequate battery life. No significant recurrent atrial fibrillation aside from current hospitalization. (6) CAD (coronary artery disease), [place] coronary artery: Continue aspirin, statin, and beta-lyn. (7) Severe sepsis with acute organ dysfunction due to Gram negative bacteria: Antibiotics and supportive care as per internal medicine/urology. (8) Gram-negative bacteremia: Subjective Patient seen and examined the bedside. Recurrent subhash of asymptomatic atrial fibrillation with rapid ventricular response recorded on telemetry. Denies chest pain or palpitations. Denies any palpitations. Denies chest pain or shortness of breath. Appetite is adequate. Blood pressure elevated. Offers no complaints at this time. Physical Exam Vital Signs (Past 24 Hours): Last Vital Signs Temp 37.1 C 03/12/19 07:46 Pulse 94 H 03/12/19 07:46 Resp 24 03/12/19 07:46 BP 160/77 H 03/12/19 09:53 Pulse Ox 94 03/12/19 07:46 Physical Exam: General: NAD, AAO x3, well nourished. HEENT: Normocephalic. Atraumatic. Conjunctiva pink, no scleral icterus. Neck: No carotid bruits, the carotid upstrokes are brisk. No JVD. No HJR Heart: Irregular rhythm, tachycardic. No murmur appreciated. Point of maximal intensity is not displaced. No RV heave. Lungs: Clear bilateral without rales , rhonchi, or wheeze. Abdomen: Normal bowel sounds. Soft. Nontender. No masses or organomegaly. No abdominal bruits. Extremities: No clubbing, cyanosis, or edema. Pulses: radial=2/4, Dorsalis pedis =2/4. Neuro: Cranial nerves grossly intact. No focal motor deficit. Results & Data Laboratory Results Laboratory Results - last 24 hr 03/11/19 03/11/19 03/11/19 11:25 16:08 20:56 POC Glucose 229 H 179 H 232 H 03/12/19 07:24 POC Glucose 227 H Medications Administered atorvastatin 40 mg PO DAILY 03/06/19 [History Confirmed 03/06/19] clopidogrel 75 mg PO DAILY 03/06/19 [History Confirmed 03/06/19] glipizide 10 mg PO DAILY 03/06/19 [History Confirmed 03/06/19] lisinopril 20 mg PO DAILY 03/06/19 [History Confirmed 03/06/19] metformin 500 mg PO BID 03/06/19 [History Confirmed 03/06/19] sertraline 25 mg PO DAILY 03/06/19 [History Confirmed 03/06/19] Home Medications Acetaminophen (Tylenol) 650 mg PO Q4H PRN PRN Reason: Pain or Fever Stop: 04/06/19 01:43 Last Admin: 03/12/19 03:59 Dose: 650 mg Documented by: Aspirin (Ecotrin Ectab) 81 mg PO DAILY [facility] Stop: 04/07/19 13:59 Last Admin: 03/12/19 07:59 Dose: 81 mg Documented by: Atorvastatin Calcium (Lipitor) 40 mg PO DAILY [facility] Stop: 04/08/19 08:59 Last Admin: 03/12/19 07:59 Dose: 40 mg Documented by: Dextrose (Dextrose 50%) 25 - 50 ml IV UD PRN; Protocol PRN Reason: Hypoglycemia Protocol Stop: 04/06/19 04:44 Glucagon (Glucagen) 1 mg SQ UD PRN; Protocol PRN Reason: Hypoglycemia Protocol Stop: 04/06/19 04:44 Glucose (Glucose 40%) 15 - 30 gm PO UD PRN; Protocol PRN Reason: Hypoglycemia Protocol Stop: 04/06/19 04:44 Glucose (Dex4 Glucose) 4 - 8 tabs PO UD PRN; Protocol PRN Reason: Hypoglycemia Protocol Stop: 04/06/19 04:44 Piperacillin Sod/Tazobactam (Sod 3.375 gm/ Dextrose) 115 mls @ 28.75 mls/hr IV Q8H [facility]; Protocol Stop: 03/16/19 19:59 Last Infusion: 03/12/19 08:00 Dose: Infused Documented by: Doxycycline Hyclate 100 mg/ (Dextrose) 110 mls @ 50 mls/hr IV BID@0200,1600 [facility]; Protocol Stop: 03/16/19 15:59 Insulin Aspart (Novolog Flexpen) 0 units SC ACHS [facility] Stop: 04/06/19 05:59 Last Admin: 03/12/19 08:00 Dose: 2 units Documented by: Ipratropium Roundup (Atrovent 0.02% 0.5mg/2.5ml) 0.5 mg NEB Q6R [facility] Stop: 04/08/19 13:59 Last Admin: 03/12/19 07:15 Dose: 0.5 mg Documented by: Ipratropium Roundup (Atrovent 0.02% 0.5mg/2.5ml) 0.5 mg NEB Q2H PRN PRN Reason: wheeze Stop: 04/08/19 13:09 Levalbuterol HCl (Xopenex 1.25mg/0.5ml Neb) 1.25 mg NEB Q6R [facility] Stop: 04/08/19 13:59 Last Admin: 03/12/19 07:15 Dose: 1.25 mg Documented by: Levalbuterol HCl (Xopenex 1.25mg/0.5ml Neb) 1.25 mg NEB Q2H PRN PRN Reason: wheeze Stop: 04/08/19 13:09 Metoprolol Tartrate (Lopressor) 5 mg IV Q6 PRN PRN Reason: hr> 100 Stop: 04/07/19 11:59 Last Admin: 03/10/19 23:46 Dose: 5 mg Documented by: Metoprolol Tartrate (Lopressor) 25 mg PO Q8 [facility] Stop: 04/11/19 13:59 Miscellaneous (Carbohydrates For Hypoglycemia) 15 - 30 gm PO UD PRN PRN Reason: Hypoglycemia Treatment Stop: 04/06/19 04:44 Miscellaneous Information (Consult) 1 ea N/A UD PRN PRN Reason: Consult Stop: 04/08/19 14:15 Nitroglycerin (Nitrostat) 0.4 mg SL UD PRN PRN Reason: Chest Pain Stop: 04/06/19 01:43 Ondansetron HCl (Zofran) 4 mg IV Q6H PRN PRN Reason: Nausea Stop: 04/06/19 01:43 Last Admin: 03/12/19 04:08 Dose: 4 mg Documented by: Sertraline HCl (Zoloft) 25 mg PO DAILY [facility] Stop: 04/06/19 08:59 Last Admin: 03/12/19 07:59 Dose: 25 mg Documented by: (1) Atrial fibrillation Atrial fibrillation type: unspecified Qualified Code(s): I48.91 - Unspecified atrial fibrillation (2) Mitral regurgitation Cardiac valve disease etiology: nonrheumatic Qualified Code(s): I34.0 - Nonrheumatic mitral (valve) insufficiency (3) HTN (hypertension) Hypertension type: essential hypertension Qualified Code(s): I10 - Essential (primary) hypertension (4) CAD (coronary artery disease), [place] coronary artery [place] vs. transplanted heart: [place] heart Associated angina: without angina Qualified Code(s): I25.10 - Atherosclerotic heart disease of [place] coronary artery without angina pectoris
[2019-03-12] MEDS ORDERED: DOXYCYCLINE HYCLATE 100 MG CAP PO SCH (11:00)
[2019-03-12] MEDS: LISINOPRIL 20 MG TAB PO SCH (12:03)
[2019-03-12] MEDS: METOPROLOL TARTRATE 25 MG TAB PO SCH ×2 (14:46→21:53)
--- NOTE | 2019-03-12 14:46 | Hospitalist Progress Note ---
Date of Service March 12, 2019 Assessment & Plan (1) Atrial fibrillation: Converted to normal sinus, at present rate controlled with beta-lyn Appreciate input from cardiology Lopressor dose increased to 25 mg p.o. 3 times daily Not a candidate for IV heparin anticoagulation secondary to thrombocytopenia, bleeding risk Continue to monitor patient in telemetry (2) Right lower lobe pneumonia: Clinically improved No cough, no fever chills, leukocytosis has improved Chest x-ray shows developing right lower lobe pneumonia (was not present on admission chest x-ray) On doxycycline, Zosyn Discussed with ID, antibiotic will be changed to Augmentin Speech evaluation requested appreciate eval, No evidence of dysphagia or aspiration noted, in agreement with moist means diet (patient does not have teeth) with aspiration precaution (3) Thrombocytopenia: Platelet counts remains being low 60s70s, possible secondary to sepsis, Avoid antiplatelets, anticoagulants, Daily CBC ordered, (4) Elevated troponin: Type II non-ST elevated NH/demand ischemia in the setting of severe sepsis, hypotension's/rapid A. fib Evidence of ACS or acute coronary thrombosis Patient continue with all cardiac meds, added aspirin 81 mg p.o. daily Cardiology following (5) Severe sepsis with acute organ dysfunction due to Gram negative bacteria: On admission met criteria for sepsis per CMS guideline presented with fever , tachycardia , elevated lactic acid level , acute renal failure , hypotension source of infection -obstructed ueteric stone , complicated UTI ( urine culture -gram negative bacilli /E. coli: Pansensitive leading to gram negative bacteremia: E. coli Repeat blood culture shows no growth vitals improved after aggressive Iv hydration did not require pressors Lactic acid level normalized s/p cystoscopy with rt sided ureteric stone placement ID eval requested Urine culture: E. coli pansensitive, Antibiotic changed to Augmentin, complete total 2 weeks course Stable to be transferred to rehab tomorrow, urology follow-up in 2 weeks/after antibiotic treatment completed, for right sided ureteroscopy stent removal and possible lithotripsy (6) Acute renal failure superimposed on stage 3 chronic kidney disease: Resolved Creatinine at baseline due to above , obstructed ureteric stone , severe sepsis , dehydration s/p ureteric stent placement Acute kidney failure resolved, creatinine improved to baseline patient shows evidence of volume overload, received (7) Gram-negative bacteremia: from complicated UTI /obstructed ureteric stone Urine and blood culture growing gram negative bacilli Pansensitive E. coli in urine culture, Continue IV antibiotic: Zosyn Repeat blood culture no growth ID consulted, appreciate input (8) Hydronephrosis with renal and ureteral calculous obstruction: s/p rt ueteric stent placement appreciate input from Urology Scheduled for outpatient follow-up (9) Metabolic encephalopathy: Symptom has resolved, and awake and alert oriented to person and place answering question appropriately, very pleasant baseline advanced dementia Developed worsening of confusion , delirium due to acute infection /severe sepsis high risk for delirium avoid narcotics/benzodiazepine (10) Hypotension: Resolved, blood pressure improved to baseline Lisinopril resumed (11) UTI (urinary tract infection), bacterial: complicated UTI in setting of obstructed ureteric stone , leading to gram negative bacteremia Pansensitive E. coli, Treated with IV Zosyn ID following CODE STATUS : FULL CODE (12) HTN (hypertension): Blood pressure stable, lisinopril resumed (13) Mitral regurgitation: History of diastolic dysfunction, CHF with mitral regurgitation, evidence of volume overload noted, Volume status appears to be stable now, Chronic CHF with diastolic dysfunction, Resume outpatient lisinopril Continue to monitor volume status Cardiology following closely (14) Escherichia coli infection: Complicated E. coli infection in urine leading to gram-negative bacteremia, treatment outlined as above (15) CAD (coronary artery disease), [place] coronary artery: No acute coronary event, continue outpatient cardiac meds, appreciate input from cardiology (16) History of pacemaker: Appreciate input from cardiology, pacemaker interrogation shows adequate battery life CODE STATUS: Full code DVT prophylaxis: SCD and teds Pharmacological anticoagulation avoided- thrombocytopenia patient is moderate to high risk for DVT given functional decline, Disposition: Order for PT OT evaluation Recommend rehab, [place] [facility] social service following for discharge plan Subjective Feels much better today, denies of any weakness, sitting up in chair, no cough, no fever or chills, denies of any shortness of breath, no palpitation no dizzy spell, remains in sinus with rate controlled, vitals stable Physical Exam Vital Signs (Past 24 Hours): Last Vital Signs Temp 37.1 C 03/12/19 11:49 Pulse 55 L 03/12/19 13:32 Resp 16 03/12/19 13:32 BP 164/82 H 03/12/19 11:49 Pulse Ox 95 03/12/19 14:10 Constitutional: WD/WN, vitals as above no acute distress Elderly female very pleasant ENMT: Mouth: + edentulous (Only has 1 lower tooth) Mallampati Class: II Neck: normal visual inspection Respiratory: no respiratory distress and no cough Auscultation: + diminished lung sounds; no rales and no wheezes Cardiovascular: RRR, no murmur, no edema Rate/Rhythm: + abnormal rate and + abnormal rhythm (Irregularly irregular) Gastrointestinal (Abdomen): Percussion/Palpation: abdomen soft; abdomen nontender Neurologic: PERRL, EOMI, accommodation nl, no face palsy, no dysarthria no focal motor deficits Psychiatric: Orientation: alert, oriented to person and oriented to place (1) Atrial fibrillation Atrial fibrillation type: unspecified Qualified Code(s): I48.91 - Unspecified atrial fibrillation (2) Mitral regurgitation Cardiac valve disease etiology: nonrheumatic Qualified Code(s): I34.0 - Nonrheumatic mitral (valve) insufficiency (3) CAD (coronary artery disease), [place] coronary artery Associated angina: without angina [place] vs. transplanted heart: [place] heart Qualified Code(s): I25.10 - Atherosclerotic heart disease of [place] coronary artery without angina pectoris (4) Acute renal failure superimposed on stage 3 chronic kidney disease Acute renal failure type: unspecified Qualified Code(s): N17.9 - Acute kidney failure, unspecified; N18.3 - Chronic kidney disease, stage 3 (moderate) (5) Right lower lobe pneumonia Pneumonia type: due to unspecified organism Qualified Code(s): J18.1 - Lobar pneumonia, unspecified organism (6) HTN (hypertension) Hypertension type: essential hypertension Qualified Code(s): I10 - Essential (primary) hypertension (7) Hypotension Hypotension type: hypotension due to hypovolemia Qualified Code(s): I95.89 - Other hypotension; E86.1 - Hypovolemia
[2019-03-12] MEDS ORDERED: INSULIN GLARGINE SOLOSTAR 100 UNITS/ML 3 ML PEN SC ONE (14:49)
[2019-03-12] MEDS ORDERED: DOXYCYCLINE HYCLATE 100 MG in DEXTROSE 5% 100 ML IV SCH (16:00)
[2019-03-12] MEDS ORDERED: DOCUSATE SODIUM 100 MG CAP PO ONE (16:17)
[2019-03-12] MEDS ORDERED: POLYETHYLENE (MIRALAX) 17 GM PACK PO PRN (16:18)
[2019-03-12 16:53] LABS: BUN Creatinine Ratio 32.9 (10-20); Calcium 8.4 mg/dl (8.5-10.1); Creatinine Clr Calc Pharmacy 57.4 ml/min; Est GFR (African American) 96.5; Est GFR (Non-African American) 83.2; Magnesium 1.7 mg/dl (1.8-2.4); Potassium 3.8 mmol/L (3.5-5.1)
[2019-03-12] MEDS: AMOXICILLIN/CLAVULANATE 875 MG TAB PO SCH (17:43)
[2019-03-12] MEDS: LACTOBACILLUS ACIDOPHILUS (FLORANEX) TAB PO SCH ×2 (17:43→20:41)
--- NOTE | 2019-03-12 20:18 | Infectious Disease Progress Nt ---
Date of Service March 12, 2019 Assessment & Plan (1) Escherichia coli sepsis: 83-year-old female with E. coli sepsis from obstructive uropathy now status post ureteral stent placement, with possible developing right lower lobe pneumonia. Patient improved with IV antibiotics, to transition to oral Augmentin 875 twice daily to complete 2 weeks of therapy. (2) Right lower lobe pneumonia: (3) UTI (urinary tract infection), bacterial: Subjective Patient seen in follow-up for sepsis with urinary tract infection and obstructive uropathy. With possible developing pneumonia. Patient improved on IV antibiotics. No increase in cough or shortness of breath. No fever. Review of Systems All systems reviewed & are unremarkable except as noted in HPI & below Physical Exam Vital Signs (Past 24 Hours): Last Vital Signs Temp 37.1 C 03/12/19 19:29 Pulse 73 03/12/19 19:29 Resp 22 03/12/19 19:29 BP 141/95 H 03/12/19 19:29 Pulse Ox 96 03/12/19 19:29 Constitutional: WD/WN, vitals as above comfortable; no acute distress Eyes: PERRL, conjunctivae normal, anicteric sclerae ENMT: external ear and nose normal, oropharynx normal Neck: trachea midline, no thyromegaly neck nontender Respiratory: normal respiratory effort, lungs clear to auscultation normal percussion; no respiratory distress and does not use accessory muscles Auscultation: + rhonchi Cardiovascular: Rate/Rhythm: regular rate and regular rhythm Heart Sounds: normal S1 and normal S2; no gallop, no murmur and no cardiac rub Vessels: normal peripheral pulses; no JVD Gastrointestinal (Abdomen): Inspection/Auscultation: abdomen normal to inspection and normal bowel sounds Percussion/Palpation: no hepatosplenomegaly and no abdominal mass Musculoskeletal: no cyanosis or clubbing, extremities motor strength 5/5 Spine: thoracic spine normal to inspection and lumbar spine normal to inspection; no cervical spinal tenderness Skin: no rashes, warm and dry normal turgor; no lesions Neurologic: patellar DTR's 2+ bilat, sensation intact no focal motor deficits Psychiatric: A+Ox3, euthymic affect Orientation: cooperative Lymphatic: no cervical or axillary lymphadenopathy no inguinal lymphadenopathy Results & Data Laboratory Results [facility] 03/12/19 16:07 Sodium 138 Potassium 3.8 Chloride 110 H Carbon Dioxide 22 BUN 20 H Creatinine 0.61 Glucose 233 H Calcium 8.4 L Diagnostic Findings Microbiology 03/06/19 20:50 Blood Blood Culture - Final Escherichia coli 03/06/19 20:42 Blood Blood Culture - Final Escherichia coli 03/07/19 14:40 Blood Blood Culture - Preliminary No growth to date. 03/07/19 14:20 Blood Blood Culture - Preliminary No growth to date. 03/06/19 22:52 Urine,Straight Cath Urine Culture - Final Escherichia coli Ordering Phy: Estella Ervin M.D. cc: ~ XR chest 1V portable CLINICAL HISTORY: pneumonia COMPARISON STUDY: 03/09/2019 FINDINGS: Unchanging right basilar parenchymal infiltrate. Minimal infiltrative process left base. Permanent bipolar cardiac pacemaker. Severe degenerative change right shoulder. IMPRESSION: Unchanging infiltrative process right base. Minimal infiltrate left base. (1) Right lower lobe pneumonia Pneumonia type: due to unspecified organism Qualified Code(s): J18.1 - Lobar pneumonia, unspecified organism
[2019-03-12] MEDS: INSULIN GLARGINE SOLOSTAR 100 UNITS/ML 3 ML PEN SC SCH (20:54)
[2019-03-12] MEDS ORDERED: DOCUSATE SODIUM/SENNA 50/8.6MG TAB PO SCH (21:00)
[2019-03-13] MEDS: LEVALBUTEROL 1.25MG/0.5ML NEB NEB SCH ×2 (01:39→06:59)
[2019-03-13] MEDS: IPRATROPIUM BROMIDE NEB SOLN 0.02% 2.5 ML VIAL NEB SCH ×2 (01:39→06:59)
[2019-03-13] MEDS: METOPROLOL TARTRATE 25 MG TAB PO SCH (05:45)
[2019-03-13 06:43] LABS: Hematocrit (blood only) 34.5 % (37-47); Hemoglobin 11.7 g/dL (12.0-16.0); Mean Corpuscular Hgb Conc 33.9 g/dL (32-36); Mean Corpuscular Volume 88.9 fL (80-100); Mean Platelet Volume 10.2 fL (7.4-10.4); Platelet Count 114 K/uL (130-400); RDW Coefficient of Variation 14.1 % (11.5-14.5); RDW Standard Deviation 45.6 fL (36.4-46.3); Red Blood Count 3.88 M/uL (4.2-5.4); White Blood Count 14.85 K/uL (4.8-10.8)
[2019-03-13 07:04] LABS: Estimated Average Glucose 148 mg/dl; Hemoglobin A1C 6.8 % (4.5-5.6)
[2019-03-13 07:19] LABS: BUN Creatinine Ratio 32.2 (10-20); Calcium 8.1 mg/dl (8.5-10.1); Creatinine Clr Calc Pharmacy 68.4 ml/min; Est GFR (African American) 101.7; Est GFR (Non-African American) 87.7; Magnesium 1.5 mg/dl (1.8-2.4); Potassium 3.5 mmol/L (3.5-5.1)
[2019-03-13] MEDS: INSULIN ASPART 100 UNITS/ML 3 ML PEN SC SCH ×2 (09:31→12:10)
[2019-03-13] MEDS: MAGNESIUM SULFATE / D5W 1 GM/100 ML BAG IV SCH ×2 (09:31→10:49)
[2019-03-13] MEDS: LACTOBACILLUS ACIDOPHILUS (FLORANEX) TAB PO SCH ×2 (09:33→14:04)
[2019-03-13] MEDS: ATORVASTATIN 40 MG TAB PO SCH (09:34)
[2019-03-13] MEDS: LISINOPRIL 20 MG TAB PO SCH (09:34)
[2019-03-13] MEDS: AMOXICILLIN/CLAVULANATE 875 MG TAB PO SCH (09:35)
[2019-03-13] MEDS: SERTRALINE HCL 50 MG TABLET PO SCH (09:35)
[2019-03-13] MEDS: ASPIRIN 81 MG ECTAB PO SCH (09:36)
[2019-03-13] MEDS: INSULIN GLARGINE SOLOSTAR 100 UNITS/ML 3 ML PEN SC SCH (09:36)
--- NOTE | 2019-03-13 09:57 | Discharge Summary ---
Date of Service March 13, 2019 Admission HPI Per Admitting Provider DICTATED BY: Davion Dsailva MD DATE OF ADMISSION: 03/06/2019 CHIEF COMPLAINT: Right flank pain. HISTORY OF PRESENT ILLNESS: This is an 83-year-old female with past medical history significant for CAD status post stent, tachy/morelia syndrome status post pacemaker, diabetes, hyperlipidemia, hypertension who presents with severe right flank pain and found to have impacted right UPJ stone and severe sepsis with lactic acid of 4, tachycardia and temp spike. The patient currently is resting comfortably, somewhat hard to hear. Daughter is in the room helping with answering questions. The patient lives with her son. Since 03/05/2019 night, she was having some right flank pain which got worse today morning and she called her daughter and she was brought in here. She was trying to micturate whole day today but could not make much urine. She has chronic diarrhea, daughter thinks, from her metformin. Denies any chest pain or shortness of breath. Has cough on and off. She still smokes about half pack a day. Has some headache. Vision is okay. Appetite is okay. No difficulty swallowing, feeling nauseous, but no vomiting. No swelling of the legs. She ambulates without any help. Blood pressure is okay. Currently, she is going for emergent cystoscopy and stent placement. Principal Diagnosis E COLI SEPSIS /GRAM NEGATIVE BACTEREMIA /A FIB Discharge Exam Constitutional WD/WN, vitals as above no acute distress ENMT Mouth: + edentulous (Only has 1 lower tooth) Mallampati Class: II Neck normal visual inspection Respiratory no respiratory distress and no cough Auscultation: + diminished lung sounds; no rales and no wheezes Cardiovascular RRR, no murmur, no edema Rate/Rhythm: + abnormal rate and + abnormal rhythm (Irregularly irregular) Gastrointestinal (Abdomen) Percussion/Palpation: abdomen soft; abdomen nontender Neurologic PERRL, EOMI, accommodation nl, no face palsy, no dysarthria no focal motor deficits Psychiatric Orientation: alert, oriented to person and oriented to place Discharge Data Allergies Allergy/AdvReac Type Severity Reaction Status Date / Time No Known Allergies Allergy Unverified 08/21/17 14:01 Consultations 03/06/19 22:33 Consult Urology Stat 03/06/19 22:40 ED Decision to Admit Stat 03/07/19 01:44 Consult Case Management - Discharge Planning Routine 03/07/19 13:59 Consult Infectious Diseases Routine 03/08/19 11:30 Consult Cardiology Routine Procedures Performed Operation Date: 03/06/19 23:00 Actual Procedures p Cystoscopy, Right Ureteral Stent Placement(Right) - Justice Amaya MD Ordered Studies 03/06/19 20:16 CT abd pelvis IV con only Stat CT head/brain wo con Stat 03/06/19 23:14 FL retrograde includes kub Routine 03/08/19 14:06 CT head/brain wo con Stat Hospital Course (1) Atrial fibrillation: Converted to normal sinus, at present rate controlled with beta-lyn Appreciate input from cardiology Lopressor dose increased to 25 mg p.o. 3 times daily Not a candidate for IV heparin anticoagulation secondary to thrombocytopenia, bleeding risk HR remains in sinus with rate controlled D/w Cardiology -pt will be discharged to rehab with same dose Lopressor 25 mg PO TID Out pt Cardiology follow up in 2-[address] Pete , plan to transition to possible once daily /long active beta lyn for better compliace (2) Right lower lobe pneumonia: Clinically improved No cough, no fever chills, leukocytosis has improved Chest x-ray shows developing right lower lobe pneumonia (was not present on admission chest x-ray) was On doxycycline, Zosyn-discontinued Discussed with ID, antibiotic will be changed to Augmentin Speech evaluation requested appreciate eval, No evidence of dysphagia or aspiration noted, in agreement with moist means diet (patient does not have teeth) with aspiration precaution (3) Thrombocytopenia: Platelet count improved 114 Aspirin and Plavix resumed repeat CBC in a week (4) Elevated troponin: Type II non-ST elevated [place]/demand ischemia in the setting of severe sepsis, hypotension's/rapid A. fib Evidence of ACS or acute coronary thrombosis Patient continue with all cardiac meds, added aspirin 81 mg p.o. daily appreciate cardiolology follow up (5) Severe sepsis with acute organ dysfunction due to Gram negative bacteria: On admission met criteria for sepsis per CMS guideline presented with fever , tachycardia , elevated lactic acid level , acute renal failure , hypotension source of infection -obstructed ueteric stone , complicated UTI ( urine culture -gram negative bacilli /E. coli: Pansensitive leading to gram negative bacteremia: E. coli Repeat blood culture shows no growth vitals improved after aggressive Iv hydration did not require pressors Lactic acid level normalized s/p cystoscopy with rt sided ureteric stone placement ID eval requested Urine culture: E. coli pansensitive, Antibiotic changed to Augmentin, complete total 2 weeks course Stable to be transferred to rehab today , urology follow-up in 2 weeks/after antibiotic treatment completed, for right sided ureteroscopy stent removal and possible lithotripsy (6) Acute renal failure superimposed on stage 3 chronic kidney disease: Resolved lisinopril resumed Creatinine at baseline due to above , obstructed ureteric stone , severe sepsis , dehydration s/p ureteric stent placement (7) Gram-negative bacteremia: from complicated UTI /obstructed ureteric stone Urine and blood culture growing gram negative bacilli Pansensitive E. coli in urine culture, was treated with Zosyn Repeat blood culture no growth ID consulted, appreciate input Abx changed to PO Augmentin total 2 weeks course (8) Hydronephrosis with renal and ureteral calculous obstruction: s/p rt ueteric stent placement appreciate input from Urology outpatient follow-up in 2 weeks (9) Metabolic encephalopathy: Symptom has resolved, and awake and alert oriented to person and place answering question appropriately, very pleasant baseline advanced dementia Developed worsening of confusion , delirium due to acute infection /severe seps is high risk for delirium avoid narcotics/benzodiazepine (10) Hypotension: Resolved, blood pressure improved to baseline Lisinopril resumed (11) UTI (urinary tract infection), bacterial: complicated UTI in setting of obstructed ureteric stone , leading to gram negative bacteremia Pansensitive E. coli, was treated with IV Zosyn for 5 days Abx changed to Augmentin PO on discharge CODE STATUS : FULL CODE (12) HTN (hypertension): Blood pressure stable, lisinopril resumed (13) Mitral regurgitation: Chronic CHF with diastolic dysfunction, Resumed outpatient lisinopril CHF with mitral regurgitation, Volume status stable (14) Escherichia coli infection: Complicated E. coli infection in urine leading to gram-negative bacteremia, treatment outlined as above (15) CAD (coronary artery disease), [place] coronary artery: No acute coronary event, continue outpatient cardiac meds, appreciate input from cardiology (16) History of pacemaker: Appreciate input from cardiology, pacemaker interrogation shows adequate battery life CODE STATUS: Full code DVT prophylaxis: SCD and teds Pharmacological anticoagulation avoided- thrombocytopenia patient is moderate to high risk for DVT given functional decline, Disposition: stable to be transferred [facility] Total Time Total Time Spent Total Time Spent (In Minutes): approx 40 mins Total Time Includes: Examination of the Patient, Discharge Planning, Medication Reconciliation and Communication With Other Providers Discharge Plan Discharge Items Patient Disposition: Transfer [facility] Reason For Visit: ILLNESS Discharge Diagnosis: SEPSIS /E COLI UTI /BACTEREMIA /AFIB /URETERIC STONE Discharge Goals: Decrease discomfort Activity: As commented below Activity Comment: CONTINUE PHYSICAL THERAY /OCCUPATIONAL THERAPY Non-emergency contact: Primary Care Provider Call non-emergency contact if: you have any medication questions Follow-up/Referrals: Justice Amaya MD [Physician] - (OFFICE FOLLOW UP AFTER 2 WEEKS FOR RT URETERIC STENT REMOVAL ) Musa Pete DO [Investor Relations Specialist] - (FOLLOW UP AT [facility] IN 2-3 WEEKS ) Avtar Nielsen [Primary Care Provider] - Diet: Heart Healthy Diet Texture: Mechanical soft (ground) Other Ambulatory Orders: Basic Metabolic Panel (Routine) Timeframe: 1 Week Location: Determined by Patient Ordered By: Estella Ervin Complete Blood Count no Diff (Routine) Timeframe: 1 Week Location: Determined by Patient Ordered By: Estella Ervin Magnesium (Routine) Timeframe: 1 Week Location: Determined by Patient Ordered By: Estella Ervin Addtl Provider Instructions: COMPLETE ANTIBIOTIC FOR [address] AMAYA FOLLOW UP IN 2 WEEKS AFTER COMPLETION OF ANTIBIOTIC FOR RT URETERIC STENT REMOVAL FOLLOW UP WITH CARDIOLOGY DR PETE IN 2-3 WEEKS Prescriptions: New aspirin [Ecotrin Low Strength] 81 mg Tablet,Delayed Release (Dr/Ec) 81 mg PO DAILY 30 Days Qty: 30 RF: 0 amoxicillin-pot clavulanate 875-125 mg Tablet 1 tab PO BIDM 10 Days Qty: 20 RF: 0 metoprolol tartrate 25 mg Tablet 25 mg PO Q8 30 Days Qty: 90 RF: 0 Lactinex 1 million cell tablet,chewable 1 tab PO TID 30 Days Qty: 90 RF: 0 magnesium oxide 400 mg capsule 400 mg PO DAILY Qty: 30 RF: 0 Continued atorvastatin 40 mg tablet 40 mg PO DAILY RF: 0 lisinopril 20 mg tablet 20 mg PO DAILY RF: 0 glipizide 10 mg tablet 10 mg PO DAILY RF: 0 clopidogrel 75 mg tablet 75 mg PO DAILY RF: 0 sertraline 25 mg tablet 25 mg PO DAILY RF: 0 metformin 500 mg tablet extended release 24 hr 500 mg PO BID RF: 0 Stand-Alone Forms: [facility] Discharge Orders: Discharge Order (Routine); Ordered 03/13/19 Ordered By: Estella Ervin Skilled Items Patient informed of condition?: Yes DNR: No Discharge Level of Care: Skilled Communicable Disease: No Discharge Prognosis: Stable Admission Data Admit Date/Time: 03/06/19 23:22 Attending Provider: Estella Ervin Admit Provider: Davion Dasilva Primary Care Provider: Avtar Nielsen Other Providers: Justice Amaya ; Davion Dasilva ; Prieto March ; Mc Newman ; Avtar Herzog ; Seb Ag ; Toby Hodges ; Musa Pete ; Jalen Mullins ; Nikki Pa ; Matilda Blue Service: Surgical Services
== END 2019-03-13 14:05 | DRG 853 ==
LOC: ED 19:14 → OR 23:25 → 2E 23:26
DX: N17.9 Acute kidney failure, unspecified; Z79.84 Long term (current) use of oral hypoglycemic drugs; R91.1 Solitary pulmonary nodule; Z95.5 Presence of coronary angioplasty implant and graft; I49.5 Sick sinus syndrome; E87.6 Hypokalemia; N81.10 Cystocele, unspecified; N13.6 Pyonephrosis; K76.9 Liver disease, unspecified; G93.41 Metabolic encephalopathy; R65.20 Severe sepsis without septic shock; J18.1 Lobar pneumonia, unspecified organism; I50.9 Heart failure, unspecified; D69.59 Other secondary thrombocytopenia; F17.210 Nicotine dependence, cigarettes, uncomplicated; N18.3 Chronic kidney disease, stage 3 (moderate); E11.22 Type 2 diabetes mellitus with diabetic chronic kidney disease; I25.10 Atherosclerotic heart disease of native coronary artery without angina pectoris; I48.91 Unspecified atrial fibrillation; I21.A1 Myocardial infarction type 2; F03.90 Unspecified dementia, unspecified severity, without behavioral disturbance, psychotic disturbance, mood disturbance, and anxiety; I13.0 Hypertensive heart and chronic kidney disease with heart failure and stage 1 through stage 4 chronic kidney disease, or unspecified chronic kidney disease; K21.9 Gastro-esophageal reflux disease without esophagitis; A41.50 Gram-negative sepsis, unspecified; E78.5 Hyperlipidemia, unspecified; Z95.0 Presence of cardiac pacemaker; Z79.899 Other long term (current) drug therapy; Z79.02 Long term (current) use of antithrombotics/antiplatelets

== ENCOUNTER 2019-04-23 18:43 | Inpatient (IN) ==
[2019-04-23] MEDS ORDERED: SODIUM CHLORIDE 0.9% 1000ML 1,000 ML IV SCH (19:15)
--- NOTE | 2019-04-23 19:15 | Emergency Department Note ---
Entered by Tammy Phan acting as a scribe for Shane Huynh MD History of Present Illness General Chief complaint: Dehydration Stated complaint: DEHYDRATED DOC REF Time Seen by Provider: 04/23/19 18:52 Source: patient and friends History of Present Illness Onset (ago): day(s) 5 Location: abdomen Pain Consistency: + other (persistent) Maximum Pain Intensity: 10 Quality: + other (diarrhea) Associated symptoms: + fever/chills and + other (negative abdominal pain; positive hemorrhoid; positive rectal pain) The patient is a 83 year old female who presents to the Emergency Room with complaints of persistent diarrhea that began 5 days prior to arrival. Per the patient's friend, the patient had a fever earlier today. The patient denies abdominal pain, but states that she has a hemorrhoid that is giving her rectal pain. The patient's friend states that the patient has had a persistent kidney infection and has been on antibiotics for about one month. The patient's friend states that the patient is currently on Cipro. The patient denies a history of C. diff. Home Medications Home Medications Medication Instructions Recorded Confirmed Type Fleet Enema 197 ml MO DAILY PRN 04/06/19 04/23/19 History Jardiance 10 mg PO QAM 04/06/19 04/23/19 History Lactinex 1 tab PO TID 04/06/19 04/23/19 History acetaminophen 650 tab PO Q6H PRN 04/06/19 04/23/19 History aspirin [Aspirin Low Dose] 81 mg PO DAILY 04/06/19 04/23/19 History atorvastatin 40 mg PO HS 04/06/19 04/23/19 History bisacodyl [Dulcolax (bisacodyl)] 10 mg MO DAILY PRN 04/06/19 04/23/19 History clopidogrel 75 mg PO QAM 04/06/19 04/23/19 History furosemide [Lasix] 20 mg PO 3XWK 04/06/19 04/23/19 History ipratropium-albuterol 3 ml INHALATION Q8H PRN 04/06/19 04/23/19 History magnesium hydroxide [Milk of 15 ml PO HS PRN 04/06/19 04/23/19 History Magnesia] magnesium oxide 400 mg PO DAILY 04/06/19 04/23/19 History metoprolol tartrate 25 mg PO TID 04/06/19 04/23/19 History ciprofloxacin HCl 250 mg PO Q12 04/23/19 04/23/19 History sertraline 25 mg PO DAILY 04/23/19 04/23/19 History Allergies Allergy/AdvReac Type Severity Reaction Status Date / Time No Known Allergies Allergy Verified 04/23/19 20:17 Past Med/Surg History Medical History Tachy-morelia syndrome (Chronic) s/p pacemaker Diabetes mellitus, type II (Chronic) Thrombocytopenia (Resolved) As low as 61 during admission--improved to 114 at discharge (03/13), and resolved completely at f/u on 03/30. Right lower lobe pneumonia (Acute) On CXR during admission 03/2019; per discharge summary "clinically improved" and discharged on PO Augmentin. History of pacemaker Placed for tachy-morelia syndrome Atrial fibrillation During admission for septic UTI 03/2019. NSR at discharge, rate controlled with BB. Had f/u with cardiology ([facility]) 03/31, note currently unfinished. CAD (coronary artery disease) H/O stent placement 2010. On Plavix. Chronic cough Diabetes Family history non-contributory Hyperlipidemia Hypertension Kidney stones Sepsis 2/2 UTI 2/2 obstructing stone Tachy-morelia syndrome S/p PM placement Surgical History History of cystoscopy STENT PLACEMENT. HX OF ADMISSION TO [facility] 2019 WITH SEPSIS S/P appendectomy S/P cardiac cath PCI to RCA in 2010 S/P cardiac pacemaker procedure S/P cholecystectomy Family History Other Family history non-contributory Social History Preferred Language: Maori Communication Ability: Effective Beliefs That Will Affect Care: None Current Living Situation: Family Current Living Situation Comment: son Feels Safe at Home: Yes Smoking Status: Former smoker Tobacco Type: cigarettes Cigarettes Per Day: 1 ppd since age 13 Second Hand Exposure: Yes Hx Alcohol Use: No Hx Substance Use: No Review of Systems See HPI for pertinent positives & negatives. and A total of 10 systems reviewed and were otherwise negative Physical Exam Vital Signs Vital Signs - 24 hr 04/23/19 18:45 04/23/19 19:40 04/23/19 19:49 Temperature 36.5 C Temperature Source Oral Sepsis Recent Fever Within 48 Hours No Sepsis New/Unexplained Change in Mental Status No Sepsis Action Taken by Nursing No Action Required Pulse Rate 75 63 60 Pulse Rate from SpO2 Sensor 62 60 Respiratory Rate 20 24 20 Blood Pressure 126/71 110/57 L Blood Pressure Mean 89 74 Pulse Oximetry 95 98 99 Oxygen Delivery Method Room Air 04/23/19 19:50 04/23/19 19:59 04/23/19 20:00 Temperature Temperature Source Sepsis Recent Fever Within 48 Hours Sepsis New/Unexplained Change in Mental Status Sepsis Action Taken by Nursing Pulse Rate 60 60 Pulse Rate from SpO2 Sensor 60 60 Respiratory Rate 22 23 Blood Pressure 128/67 Blood Pressure Mean 87 Pulse Oximetry 99 97 98 Oxygen Delivery Method Room Air 04/23/19 20:10 04/23/19 20:20 04/23/19 20:39 Temperature Temperature Source Sepsis Recent Fever Within 48 Hours Sepsis New/Unexplained Change in Mental Status Sepsis Action Taken by Nursing Pulse Rate 62 60 72 Pulse Rate from SpO2 Sensor 61 Respiratory Rate 21 22 19 Blood Pressure Blood Pressure Mean Pulse Oximetry 97 Oxygen Delivery Method 04/23/19 20:40 04/23/19 20:50 04/23/19 21:00 Temperature Temperature Source Sepsis Recent Fever Within 48 Hours Sepsis New/Unexplained Change in Mental Status Sepsis Action Taken by Nursing Pulse Rate 69 61 60 Pulse Rate from SpO2 Sensor Respiratory Rate 21 19 19 Blood Pressure 115/53 L Blood Pressure Mean 73 Pulse Oximetry 93 Oxygen Delivery Method Room Air 04/23/19 21:10 Temperature Temperature Source Sepsis Recent Fever Within 48 Hours Sepsis New/Unexplained Change in Mental Status Sepsis Action Taken by Nursing Pulse Rate 61 Pulse Rate from SpO2 Sensor Respiratory Rate 22 Blood Pressure Blood Pressure Mean Pulse Oximetry Oxygen Delivery Method GENERAL: Patient is in no acute distress. HEENT: No acute trauma, normocephalic atraumatic, mucous membranes moist, no nasal congestion, no scleral icterus. NECK: No stridor, no adenopathy, no meningismus, trachea is midline. LUNGS: Clear to auscultation bilaterally, no wheeze, no rhonchi, breath sounds equal. HEART: Without murmurs gallops or rubs, regular rate and rhythm. ABDOMEN: Soft, nontender, bowel sounds positive, no hernias, no peritonitis. RECTAL: A few hemorrhoids noted. No thrombosed hemorrhoids seen. Loose stool on the Depends. EXTREMITIES: No cyanosis or edema, full range of motion of all the joints without pain or difficulty, no signs for acute trauma. NEUROLOGIC: Oriented x 3, no acute motor or sensory deficits, no focal weakness. SKIN: No rash, no jaundice, no diaphoresis. Course 1857: The patient was evaluated in room B6, and a complete history and physical examination were performed. The patient recently had a right ureteroscopy with laser lithotripsy and stone extraction with stent placement because of concern for urosepsis. 2117: I checked on and updated the patient. She states that she is okay with staying in the hospital. 2129: I [facility] the [facility] further evaluation. Consultations Consultation #1: I discussed the [facility] for further evaluation. Time: 21:30 Administered Medications Discontinued Medications Sodium Chloride (Nss 1000ml) 1,000 mls @ 999 mls/hr IV .Q1H1M SEDRICK Stop: 04/23/19 20:15 Last Infusion: 04/23/19 22:09 Dose: 0 mls/hr Documented by: [id number] Admin: 04/23/19 20:03 Dose: 999 mls/hr Documented by: [id number] Medical Decision Making Differential Diagnosis Differential diagnoses include C. diff colitis, diverticulitis, viral illness, bacterial intestinal infection, electrolyte imbalance, renal failure, anemia, antibiotic associated diarrhea, and others were considered. Medical Records Attestation: I reviewed the patient's medical records. Home Medications Current Medication List: was personally reviewed by me Laboratory Data Attestation: I reviewed the patient's lab results. Result diagrams: 04/23/19 19:50 04/23/19 19:50 Lab Results 04/23/19 04/23/19 04/23/19 Range/Units 19:34 19:34 19:50 WBC 6.13 (4.8-10.8) K/uL RBC 3.89 L (4.2-5.4) M/uL Hgb 11.9 L (12.0-16.0) g/dL Hct 33.5 L (37-47) % MCV 86.1 (80-100) fL MCH 30.6 (25-34) pg MCHC 35.5 (32-36) g/dL RDW Std Deviation 45.0 (36.4-46.3) fL RDW Coeff of Sharee 14.3 (11.5-14.5) % Plt Count 145 (130-400) K/uL MPV 10.4 (7.4-10.4) fL Immature Gran % (Auto) 0.3 % Neut % (Auto) 73.8 % Lymph % (Auto) 16.0 % Fisher % (Auto) 7.0 % Eos % (Auto) 2.1 % Baso % (Auto) 0.8 % Immature Gran # (Auto) 0.02 (0.00-0.02) K/uL Neut # (Auto) 4.52 (1.4-6.5) K/uL Lymph # (Auto) 0.98 L (1.2-3.4) K/uL Fisher # (Auto) 0.43 (0.11-0.59) K/uL Eos # (Auto) 0.13 (0-0.5) K/uL Baso # (Auto) 0.05 (0-0.2) K/uL Sodium (136-145) mmol/L Potassium (3.5-5.1) mmol/L Chloride (98-107) mmol/L Carbon Dioxide (21-32) mmol/L Anion Gap (3-11) BUN (7-18) mg/dl Creatinine (0.6-1.2) mg/dl Est Cr Clr Drug Dosing ml/min Est GFR ( Amer) Est GFR (Non-Af Amer) BUN/Creatinine Ratio (10-20) Glucose (70-99) mg/dl Calcium (8.5-10.1) mg/dl Magnesium (1.8-2.4) mg/dl Total Bilirubin (0.2-1) mg/dl AST (15-37) U/L ALT (12-78) U/L Alkaline Phosphatase (45-117) U/L Troponin I (0-0.045) ng/ml Total Protein (6.4-8.2) gm/dl Albumin (3.4-5.0) gm/dl Globulin (2.5-4.0) gm/dl Albumin/Globulin Ratio (0.9-2) TSH (0.300-4.500) uIu/ml Urine Color Yellow Urine Appearance Clear (Clear) Urine pH 5.0 (4.5-7.5) Ur Specific [place] 1.030 (1.000-1.030) Urine Protein Negative (Negative) Urine Glucose (UA) 3+ H (Negative) Urine Ketones Negative (Negative) Urine Blood Negative (Negative) Urine Nitrite Negative (Negative) Urine Bilirubin Negative (Negative) Urine Urobilinogen Negative (Negative) Ur Leukocyte Esterase Negative (Negative) Stl C. diff Tox B Gene Negative Cdiff Gene (Neg) 04/23/19 Range/Units 19:50 WBC (4.8-10.8) K/uL RBC (4.2-5.4) M/uL Hgb (12.0-16.0) g/dL Hct (37-47) % MCV (80-100) fL MCH (25-34) pg MCHC (32-36) g/dL RDW Std Deviation (36.4-46.3) fL RDW Coeff of Sharee (11.5-14.5) % Plt Count (130-400) K/uL MPV (7.4-10.4) fL Immature Gran % (Auto) % Neut % (Auto) % Lymph % (Auto) % Fisher % (Auto) % Eos % (Auto) % Baso % (Auto) % Immature Gran # (Auto) (0.00-0.02) K/uL Neut # (Auto) (1.4-6.5) K/uL Lymph # (Auto) (1.2-3.4) K/uL Fisher # (Auto) (0.11-0.59) K/uL Eos # (Auto) (0-0.5) K/uL Baso # (Auto) (0-0.2) K/uL Sodium 130 L (136-145) mmol/L Potassium 5.7 H (3.5-5.1) mmol/L Chloride 102 (98-107) mmol/L Carbon Dioxide 23 (21-32) mmol/L Anion Gap 5.0 (3-11) BUN 41 H (7-18) mg/dl Creatinine 1.48 H (0.6-1.2) mg/dl Est Cr Clr Drug Dosing 21.4 ml/min Est GFR ( Amer) 37.3 Est GFR (Non-Af Amer) 32.2 BUN/Creatinine Ratio 27.8 H (10-20) Glucose 246 H (70-99) mg/dl Calcium 9.1 (8.5-10.1) mg/dl Magnesium 2.6 H (1.8-2.4) mg/dl Total Bilirubin 0.8 (0.2-1) mg/dl AST 23 (15-37) U/L ALT 64 (12-78) U/L Alkaline Phosphatase 95 (45-117) U/L Troponin I < 0.015 (0-0.045) ng/ml Total Protein 7.5 (6.4-8.2) gm/dl Albumin 3.7 (3.4-5.0) gm/dl Globulin 3.8 (2.5-4.0) gm/dl Albumin/Globulin Ratio 1.0 (0.9-2) TSH 2.510 (0.300-4.500) uIu/ml Urine Color Urine Appearance (Clear) Urine pH (4.5-7.5) Ur Specific [place] (1.000-1.030) Urine Protein (Negative) Urine Glucose (UA) (Negative) Urine Ketones (Negative) Urine Blood (Negative) Urine Nitrite (Negative) Urine Bilirubin (Negative) Urine Urobilinogen (Negative) Ur Leukocyte Esterase (Negative) Stl C. diff Tox B Gene (Neg) Imaging Data Radiologist's Impression: Radiology results as stated below per my review and the radiologist's interpretation: CT abd pelvis wo con CT DOSE: 233.28 mGy.cm HISTORY: poss colitis or diverticulitis, on cipro, has diar TECHNIQUE: Multiaxial CT images of the abdomen and pelvis were performed without contrast. A dose lowering technique was utilized adhering to the principles of ALARA. COMPARISON STUDY: 03/06/2019 FINDINGS: Improved exam. Lung bases are considered clear. The liver spleen and pancreas remain unchanged. There is a small hiatal hernia. Right kidney has considerably improved compared to the prior study with minimal residual fullness of the renal right renal collecting system and right ureter. Left kidney shows evidence for a large cyst which is unchanged. The left kidney is considered negative for hydronephrosis. Bowel pattern overall is nonobstructive. There is a ventral hernia containing a nondistended loop of small bowel as well as a small additional anterior abdomi nal wall hernia containing a small loop of small bowel again considered nonobstructing. The colonic pattern is unremarkable. There is no evidence for colitis. IMPRESSION: 1. Improved exam compared to the prior study. 2. The obstruction of the right kidney and right ureter is considerably dimin ished with minimal residual fullness of the right renal collecting system. 3. Stable left renal as well as left ovarian cyst. 4. Nonobstructive colonic bowel pattern. 5. Ventral hernia containing nondistended bowel loops unchanged from the prior study.. 6. Small additional ventral hernia containing a short segment of small bowel also considered nonobstructing. The above report was generated using voice recognition software. It may contain grammatical, syntax or spelling errors. Electronically signed by: Jalen Chacon M.D. 04/23/2019 8:48 PM ECG Data Attestation: I personally reviewed and interpreted this ECG as follows: Indication: weakness Rate (beats per minute): 60 Rhythm: other (atrial pacemaker) Findings: no PVC and no ST elevation Blood Pressure Blood Pressure Findings: Normal blood pressure MDM Narrative There is no leukocytosis. No concerning anemia. Renal panel testing shows a hyponatremia with a sodium of 130. The potassium was mildly elevated at 5.7. There was evidence for some acute kidney injury with a creatinine of 1.48. The patient appeared to be in a euthyroid state. No liver enzyme elevation. EKG showed an atrial pacemaker, no acute ischemia. Cardiac enzyme testing x1 is not consistent with acute cardiac injury. Urinalysis shows some glucose, no signs o f infection. Stool C. difficile test was negative. Abdominal and pelvis CT did not show colitis or diverticulitis. The patient received IV saline, 1 L. The patient is dehydrated. She has some hyponatremia and acute kidney injury. She is having persistent diarrhea, likely from her antibiotics. Stool cultures have been ordered, this result is pending. I do think the patient deserves a hospital stay. She requires hydration, electrolyte replacement and monitoring. I spoke to the patient and case management. The on-call hospitalist was consulted. Impression & Plan Hyponatremia, Dehydration, Acute kidney injury, Diarrhea Discharge Plan Visit Data Chief Complaint: Dehydration Stated Complaint: DEHYDRATED DOC REF ED Provider: Shane Huynh Discharge Problem: Hyponatremia, Dehydration, Acute kidney injury, Diarrhea Patient Disposition: Being Evaluated by Hospitalist Forms Stand Alone Forms: My [facility] Prescriptions Prescriptions: No Action ciprofloxacin HCl 250 mg tablet 250 mg PO Q12 RF: 0 sertraline 25 mg tablet 25 mg PO DAILY RF: 0 atorvastatin 40 mg Tablet 40 mg PO HS RF: 0 acetaminophen 325 mg Tablet 650 tab PO Q6H PRN (Reason: Fever Or Pain) RF: 0 clopidogrel 75 mg Tablet 75 mg PO QAM RF: 0 aspirin [Aspirin Low Dose] 81 mg Tablet,Delayed Release (Dr/Ec) 81 mg PO DAILY RF: 0 magnesium hydroxide [Milk of Magnesia] 400 mg/5 mL Suspension 15 ml PO HS PRN (Reason: Constipation) RF: 0 bisacodyl [Dulcolax (bisacodyl)] 10 mg Suppository 10 mg MO DAILY PRN (Reason: Constipation) RF: 0 Fleet Enema 19-7 gram/118 mL Enema 197 ml MO DAILY PRN (Reason: Constipation) RF: 0 furosemide [Lasix] 20 mg Tablet 20 mg PO 3XWK RF: 0 metoprolol tartrate 25 mg Tablet 25 mg PO TID RF: 0 Lactinex 1 million cell Tablet,Chewable 1 tab PO TID RF: 0 magnesium oxide 400 mg magnesium Capsule 400 mg PO DAILY RF: 0 Jardiance 10 mg Tablet 10 mg PO QAM RF: 0 ipratropium-albuterol 0.5 mg-3 mg(2.5 mg base)/3 mL Solution For Nebulization 3 ml INHALATION Q8H PRN (Reason: SHORT OF BREATH) RF: 0 Referrals Referrals: Avtar Nielsen [Primary Care Provider] - Discharge Problem: Diarrhea Qualifiers: Diarrhea type: unspecified type Qualified Code(s): R19.7 - Diarrhea, unspecified The scribe's documentation has been prepared under my direction and personally reviewed by me in its entirety. I confirm that the note above accurately reflects all work, treatment, procedures, and medical decision making performed by me.
[2019-04-23 19:46] LABS: Appearance Urine Clear (Clear); Bilirubin Urine Negative (Negative); Blood Urine Negative (Negative); Color Urine Yellow; Glucose Urine UA 3+ (Negative); Ketones Urine Negative (Negative); Leukocyte Esterase Urine Negative (Negative); Nitrite Urine Negative (Negative); Protein Urine Negative (Negative); Urobilinogen Urine Negative (Negative)
[2019-04-23 20:02] LABS: Basophils # (auto) 0.05 K/uL (0-0.2); Basophils % (auto) 0.8 %; Eosinophils # (auto) 0.13 K/uL (0-0.5); Eosinophils % (auto) 2.1 %; Hematocrit (blood only) 33.5 % (37-47); Hemoglobin 11.9 g/dL (12.0-16.0); Immature Granulocytes # (auto) 0.02 K/uL (0.00-0.02); Immature Granulocytes % (auto) 0.3 %; Lymphocytes # (auto) 0.98 K/uL (1.2-3.4); Mean Corpuscular Hgb Conc 35.5 g/dL (32-36); Mean Corpuscular Volume 86.1 fL (80-100); Mean Platelet Volume 10.4 fL (7.4-10.4); Monocytes # (auto) 0.43 K/uL (0.11-0.59); Neutrophils # (auto) 4.52 K/uL (1.4-6.5); Neutrophils % (auto) 73.8 %; Platelet Count 145 K/uL (130-400); RDW Coefficient of Variation 14.3 % (11.5-14.5); Red Blood Count 3.89 M/uL (4.2-5.4); White Blood Count 6.13 K/uL (4.8-10.8)
[2019-04-23 20:20] LABS: Alanine Aminotransferase 64 U/L (12-78); Albumin Level 3.7 gm/dl (3.4-5.0); Aspartate Aminotransferase 23 U/L (15-37); BUN Creatinine Ratio 27.8 (10-20); Blood Urea Nitrogen 41 mg/dl (7-18); Calcium 9.1 mg/dl (8.5-10.1); Carbon Dioxide 23 mmol/L (21-32); Chloride 102 mmol/L (98-107); Creatinine Clr Calc Pharmacy 21.4 ml/min; Est GFR (African American) 37.3; Est GFR (Non-African American) 32.2; Glucose 246 mg/dl (70-99); Magnesium 2.6 mg/dl (1.8-2.4); Potassium 5.7 mmol/L (3.5-5.1); Sodium 130 mmol/L (136-145)
[2019-04-23 20:31] LABS: Alkaline Phosphatase 95 U/L (45-117); Bilirubin,Total 0.8 mg/dl (0.2-1); Globulin 3.8 gm/dl (2.5-4.0); Total Protein 7.5 gm/dl (6.4-8.2); Troponin I < 0.015 ng/ml (0-0.045)
--- NOTE | 2019-04-23 20:50 | CT Scan Report ---
CT abd pelvis wo con CT DOSE: 233.28 mGy.cm HISTORY: poss colitis or diverticulitis, on cipro, has diar TECHNIQUE: Multiaxial CT images of the abdomen and pelvis were performed without contrast. A dose lo wering technique was utilized adhering to the principles of ALARA. COMPARISON STUDY: 03/06/2019 FINDINGS: Improved exam. Lung bases are considered clear. The liver spleen and pancreas remain unchan ged. There is a small hiatal hernia. Right kidney has considerably improved compared to the prior study with minimal residual fullness of the renal right renal collecting system and right ureter. Left kidney shows evidence for a large cyst which is unchanged. The left kidney is considered negativ e for hydronephrosis. Bowel pattern overall is nonobstructive. There is a ventral hernia containing a nondistended loop of small bowel as well as a small additional anterior abdominal wall hernia containing a small loop of s mall bowel again considered nonobstructing. The colonic pattern is unremarkable. There is no evidence for colitis. IMPRESSION: 1. Improved exam compared to the prior study. 2. The obstruction of the right kidney and right ureter is considerably diminished with minimal resid ual fullness of the right renal collecting system. 3. Stable left renal as well as left ovarian cyst. 4. Nonobstructive colonic bowel pattern. 5. Ventral hernia containing nondistended bowel loops unchanged from the prior study.. 6. Small additional ventral hernia containing a short segment of small bowel also considered nonobstr ucting. The above report was generated using voice recognition software. It may contain grammatical, syntax or spelling errors. Electronically signed by: Jalen Chacon M.D. 04/23/2019 8:48 PM
--- NOTE | 2019-04-23 22:19 | History & Physical Report ---
Date of Service April 23, 2019 Assessment & Plan (1) Diarrhea: (2) Dehydration: Pt presented with c/o several episodes watery diarrhea daily x 5 days. Reports fever today. Decreased oral intake, lower abdominal aching. Patient with recent antibiotic use secondary to obstructing ureteral calculus In ER patient afebrile, BP: 75, RR: 20, BP: 126/71, 95% on room air WBC: 6, H/H: 11.9/33.5. C. difficile negative CT abdomen/pelvis: The obstruction of the right kidney and right ureter is consi derably diminished with minimal residual fullness of the right renal collecting system. Stable left renal as well as left ovarian cyst. Nonobstructive colonic bowel pattern. Ventral hernia containing nondistended bowel loops unchanged from the prior study. Small additional ventral hernia containing a short segment of small bowel also considered nonobstructing. In ER was given 1 L NSS (3) Acute kidney injury: Cr: 1.48. History TODD during admission 03/2019 and had down trended to Cr of 0.5 on 03/13/2019. Likely secondary to dehydration (4) Hyponatremia: NA: 132 corrected for glucose of 246 K: 5.7. Potassium was 5.6 on 04/20/2019 and spironolactone was discontinued secondary to hyperkalemia (5) Tachy-morelia syndrome: S/P pacemaker (6) Kidney stone: H/O hospital admission 03/06/2019-03/13/2019 for gram-negative bacteremia secondary to UTI/obstructing ureter stone. Patient was initially treated with Zosyn and transitioned to Augmentin. 04/14/2019 had right ureteroscopy, lithotripsy and right stent and right stone extraction by Dr. Bojorquez. Patient has been on Cipro 250 mg twice daily. In ER UA 3+ glucose, otherwise unremarkable Denies flank pain, dysuria, hematuria (7) Atrial fibrillation: H/O atrial fibrillation RVR during last hospital admission probable secondary to sepsis Not on anticoagulation secondary to thrombocytopenia and bleeding risk On Lopressor at home (8) Diabetes mellitus, type II: Glucose: 246. A1c: 6.8 in 03/2019 Plan to hold Jardiance Follows with Robert Davalos PA-C in [place] for routine care Pt was seen with Dr Rosa. See HPI and PE as below. See addendum for assessement and plan by Dr Rosa History of Present Illness Chief Complaint: Diarrhea Primary Care Provider: Avtar Davalos PA-C Pt is 83 y/o F with PMH CAD s/p stent, tachybradycardia syndrome s/p pacemaker, HTN, HLD, diabetes, h/o kidney stone presented to ER with complaint of diarrhea x5 days. Patient with recent hospital admission 03/06/2019-03/13/2019 for [id number] bacteremia secondary to UTI/obstructing ureter stone. Patient was initially treated with Zosyn and transitioned to Augmentin. During the hospitalization patient also had right lower lobe pneumonia, developed atrial fibrillation, demand ischemia. 04/14/2019 had right ureteroscopy, lithotripsy and right stent and right stone extraction by Dr. Bojorquez. Patient has been on Cipro 250 mg twice daily. States this week has been having multiple episodes of watery diarrhea daily. Complaining of some lower abdominal cramping. States has had decreased oral intake as is concerned about having increased diarrhea with eating. Reports today had fever (unsure of temperature). Denies nausea or vomiting. Denies any dysuria, hematuria, urinary frequency, melena, hematochezia. Denies any ill contacts. Patient with recent elevated potassium levels and spironolactone was decreased to 3 times a week and recently has been discontinued secondary to continued hyperkalemia. Denies diaphoresis, TSAI, dizziness, syncope, vision changes, neck pain, CP, SOB, orthopnea, palpitations, cough, sore throat, choking, otalgia, rhinorrhea, paresthesias, extremity weakness, extremity edema, rashes, urinary symptoms. Allergies Allergy/AdvReac Type Severity Reaction Status Date / Time No Known Allergies Allergy Verified 04/23/19 20:17 Home Medications Home Medications Medication Instructions Recorded Confirmed Type Fleet Enema 197 ml [place] DAILY PRN 04/06/19 04/23/19 History Jardiance 10 mg PO QAM 04/06/19 04/23/19 History Lactinex 1 tab PO TID 04/06/19 04/23/19 History acetaminophen 650 mg PO Q6H PRN 04/06/19 04/24/19 History aspirin [Aspirin Low Dose] 81 mg PO DAILY 04/06/19 04/23/19 History atorvastatin 40 mg PO HS 04/06/19 04/23/19 History bisacodyl [Dulcolax (bisacodyl)] 10 mg [place] DAILY PRN 04/06/19 04/23/19 History clopidogrel 75 mg PO QAM 04/06/19 04/23/19 History furosemide [Lasix] 20 mg PO 3XWK 04/06/19 04/23/19 History ipratropium-albuterol 3 ml INHALATION Q8H PRN 04/06/19 04/23/19 History magnesium hydroxide [Milk of 15 ml PO HS PRN 04/06/19 04/23/19 History Magnesia] magnesium oxide 400 mg PO DAILY 04/06/19 04/23/19 History metoprolol tartrate 25 mg PO TID 04/06/19 04/23/19 History ciprofloxacin HCl 250 mg PO Q12 04/23/19 04/23/19 History sertraline 25 mg PO DAILY 04/23/19 04/23/19 History Past Med/Surg History Medical History Tachy-morelia syndrome (Chronic) s/p pacemaker Diabetes mellitus, type II (Chronic) Thrombocytopenia (Resolved) As low as 61 during admission--improved to 114 at discharge (03/13), and resolved completely at f/u on 03/30. Right lower lobe pneumonia (Acute) On CXR during admission 03/2019; per discharge summary "clinically improved" and discharged on PO Augmentin. History of pacemaker Placed for tachy-morelia syndrome Atrial fibrillation During admission for septic UTI 03/2019. NSR at discharge, rate controlled with BB. Had f/u with cardiology ([facility]) 03/31, note currently unfinished. CAD (coronary artery disease) H/O stent placement 2010. On Plavix. Chronic cough Diabetes Family history non-contributory Hyperlipidemia Hypertension Kidney stones Sepsis 2/2 UTI 2/2 obstructing stone Tachy-morelia syndrome S/p PM placement Surgical History History of cystoscopy STENT PLACEMENT. HX OF ADMISSION TO [facility] 2019 WITH SEPSIS S/P appendectomy S/P cardiac cath PCI to RCA in 2010 S/P cardiac pacemaker procedure S/P cholecystectomy Family History Other Family history non-contributory Social History Preferred Language: [place] Communication Ability: Effective Beliefs That Will Affect Care: None Current Living Situation: Family Current Living Situation Comment: son Feels Safe at Home: Yes Smoking Status: Former smoker Tobacco Type: cigarettes Cigarettes Per Day: 1 ppd since age 13 Second Hand Exposure: Yes Hx Alcohol Use: No Hx Substance Use: No Review of Systems Review of Systems: All systems reviewed & are unremarkable except as noted in HPI & below Physical Exam Physical Exam: General: no acute distress, chronic ill appearing elderly female, WDWN Head: normocephalic, atraumatic Eyes: PERRL, EOM's intact, conjunctiva non-injected, anicteric ENT: normal inspection external ears, nose, mucous membranes dry Neck: supple, trachea midline Lungs: clear, no respiratory distress, no wheezing/rhonchi/rales CV: RRR, no pretibial edema Abd: hyperactive BS, soft, ventral hernia reducible, non-tender to palpation, no CVA tenderness Ext: no cyanosis, no calf tenderness Neuro: A&O to person, place, no focal deficits noted, normal affect Skin: warm, dry Results & Data Vital Signs (Past 12 Hours) Vital Signs Temp Pulse Resp BP Pulse Ox 04/23/19 21:10 61 22 04/23/19 21:00 60 19 115/53 L 93 04/23/19 20:50 61 19 04/23/19 20:40 69 21 04/23/19 20:39 72 19 04/23/19 20:20 60 22 04/23/19 20:10 62 21 97 04/23/19 20:00 60 23 128/67 98 04/23/19 19:59 97 04/23/19 19:50 60 22 99 04/23/19 19:49 60 20 110/57 L 99 04/23/19 19:40 63 24 98 04/23/19 18:45 36.5 C 75 20 126/71 95 Laboratory Results Short CBC 04/23/19 Range/Units 19:50 WBC 6.13 (4.8-10.8) K/uL Hgb 11.9 L (12.0-16.0) g/dL Hct 33.5 L (37-47) % Plt Count 145 (130-400) K/uL BMP 04/23/19 19:50 Sodium 130 L Potassium 5.7 H Chloride 102 Carbon Dioxide 23 BUN 41 H Creatinine 1.48 H Glucose 246 H Calcium 9.1 Cardiac Enzymes 04/23/19 Range/Units 19:50 Troponin I < 0.015 (0-0.045) ng/ml Liver Function 04/23/19 Range/Units 19:50 Total Bilirubin 0.8 (0.2-1) mg/dl AST 23 (15-37) U/L ALT 64 (12-78) U/L Alkaline Phosphatase 95 (45-117) U/L Albumin 3.7 (3.4-5.0) gm/dl Urine 04/23/19 Range/Units 19:34 Urine Color Yellow Urine Appearance Clear (Clear) Urine pH 5.0 (4.5-7.5) Ur Specific [place] 1.030 (1.000-1.030) Urine Protein Negative (Negative) Urine Glucose (UA) 3+ H (Negative) Diagnostic Findings CT ABD/PELVIS: IMPRESSION: 1. Improved exam compared to the prior study. 2. The obstruction of the right kidney and right ureter is considerably diminished with minimal residual fullness of the right renal collecting system. 3. Stable left renal as well as left ovarian cyst. 4. Nonobstructive colonic bowel pattern. 5. Ventral hernia containing nondistended bowel loops unchanged from the prior study.. 6. Small additional ventral hernia containing a short segment of small bowel also considered nonobstructing. Supervising Physician Co-Signing Physician Notes IM ATTENDING : Patient seen and examined. History obtained from patient and records. Preceding documentation by Ms. Roxana Pineda PA-C reviewed. FINAL ASSESSMENT AND PLAN as follows : ARF secondary to antibiotic associated diarrheal illness Hyponatremia, hyperkalemia secondary to above Complicated UTI ongoing Cipro Rx, repeat UA already sterile Hypertension, stable SSS status post PPM, paced rhythm CAD status post stent DM2, on oral medications, well-controlled as of recent hemoglobin A1c of 6.8 last month Chronic thrombocytopenia Past tobacco abuse GMF Monitor creatinine response to IV fluids Stop Cipro ISS BG goal 140-180, may need basal insulin to attain goal DVT prophylaxis. SCDs RE thrombocytopenia Full code (1) Atrial fibrillation Atrial fibrillation type: unspecified Qualified Code(s): I48.91 - Unspecified atrial fibrillation (2) Diarrhea Diarrhea type: unspecified type Qualified Code(s): R19.7 - Diarrhea, unspecified
[2019-04-24] MEDS ORDERED: OXYCODONE HCL IR 5 MG TAB (IMMEDIATE RELEASE) PO PRN (00:22)
[2019-04-24] MEDS ORDERED: SODIUM CHLORIDE 0.9% 1000ML 1,000 ML IV ONE (00:22)
[2019-04-24] MEDS ORDERED: CARBOHYDRATES FOR HYPOGLYCEMIA PO PRN (00:22)
[2019-04-24] MEDS ORDERED: DEXTROSE 50% 50 ML SYRINGE IV PRN (00:22)
[2019-04-24] MEDS ORDERED: PROMETHAZINE HCL 12.5 MG in SODIUM CHLORIDE 0.9% 50 ML IV PRN (00:22)
[2019-04-24] MEDS ORDERED: ACETAMINOPHEN 325 MG TAB PO PRN (00:22)
[2019-04-24] MEDS ORDERED: HYDROmorphone INJ 0.5 MG/0.5 ML SYR IV PRN (00:22)
[2019-04-24] MEDS ORDERED: GLUCOSE 40% GEL 15 GM TUBE PO PRN (00:22)
[2019-04-24] MEDS ORDERED: GLUCOSE 10 TABS/TUBE PO PRN (00:22)
[2019-04-24] MEDS ORDERED: GLUCAGON FOR INJ 1 MG VIAL SQ PRN (00:22)
[2019-04-24 01:07] LABS: BUN Creatinine Ratio 31.6 (10-20); Creatinine Clr Calc Pharmacy 28.5 ml/min; Est GFR (African American) 52.8; Est GFR (Non-African American) 45.6; Potassium 4.6 mmol/L (3.5-5.1)
[2019-04-24] MEDS: INSULIN ASPART 100 UNITS/ML 3 ML PEN SC SCH ×3 (01:15→12:35)
[2019-04-24] MEDS ORDERED: INSULIN GLARGINE SOLOSTAR 100 UNITS/ML 3 ML PEN SQ STA (02:09)
[2019-04-24 07:22] LABS: Basophils # (auto) 0.04 K/uL (0-0.2); Basophils % (auto) 0.9 %; Eosinophils % (auto) 2.3 %; Hematocrit (blood only) 29.7 % (37-47); Hemoglobin 10.3 g/dL (12.0-16.0); Lymphocytes # (auto) 1.29 K/uL (1.2-3.4); Lymphocytes % (auto) 29.3 %; Mean Corpuscular Hgb Conc 34.7 g/dL (32-36); Mean Corpuscular Volume 86.3 fL (80-100); Mean Platelet Volume 9.8 fL (7.4-10.4); Monocytes # (auto) 0.41 K/uL (0.11-0.59); Monocytes % (auto) 9.3 %; Neutrophils # (auto) 2.56 K/uL (1.4-6.5); Neutrophils % (auto) 58.2 %; Platelet Count 117 K/uL (130-400); RDW Coefficient of Variation 14.2 % (11.5-14.5); RDW Standard Deviation 45.1 fL (36.4-46.3); Red Blood Count 3.44 M/uL (4.2-5.4)
[2019-04-24] MEDS: METOPROLOL TARTRATE 25 MG TAB PO SCH ×2 (07:33→14:13)
[2019-04-24] MEDS: LACTOBACILLUS ACIDOPHILUS (FLORANEX) TAB PO SCH ×2 (07:33→12:35)
[2019-04-24 07:47] LABS: BUN Creatinine Ratio 32.3 (10-20); Calcium 8.1 mg/dl (8.5-10.1); Creatinine Clr Calc Pharmacy 33.6 ml/min; Est GFR (African American) 64.6; Est GFR (Non-African American) 55.7; Potassium 4.6 mmol/L (3.5-5.1)
[2019-04-24] MEDS ORDERED: ASPIRIN 81 MG ECTAB PO SCH (09:00)
--- NOTE | 2019-04-24 12:52 | Hospitalist Progress Note ---
Date of Service April 24, 2019 Assessment & Plan (1) Diarrhea: (2) Dehydration: Likely due to diarrhea CT ABD: The obstruction of the right kidney and right ureter is considerably diminished with minimal residual fullness of the right renal collecting system. Stable left renal as well as left ovarian cyst. Nonobstructive colonic bowel pattern. Ventral hernia containing nondistended bowel loops unchanged from the prior study. Small additional ventral hernia containing a short segment of small bowel also considered nonobstructing. Stool for C.diff: Negative Abdominal pain, Diarrhea resolved Received IV fluids (3) Acute kidney injury: Likely prerenal Cr: 1.48>>>0.94 Received IV fluids Avoid Nephrotoxic agents (4) Hyponatremia: Likely due to TODD Potassium was 5.6 on 04/20/2019 and spironolactone was discontinued secondary to hyperkalemia Resolved Potassium :5.7>>4.6 (5) Tachy-morelia syndrome: S/P pacemaker (6) Kidney stone: H/O hospital admission 03/06/2019-03/13/2019 for gram-negative bacteremia secondary to UTI/obstructing ureter stone. Patient was initially treated with Zosyn and transitioned to Augmentin. 04/14/2019 had right ureteroscopy, lithotripsy and right stent and right stone extraction by Dr. Bojorquez. Patient has been on Cipro 250 mg twice daily. UA: No signs of UTI Denies flank pain, dysuria, hematuria (7) Atrial fibrillation: H/O atrial fibrillation Not on anticoagulation secondary to thrombocytopenia and bleeding risk On Lopressor (8) Diabetes mellitus, type II: Glucose: 246. A1c: 6.8 in 03/2019 Stable Disposition: Plan to discharge home today with HH Subjective Patient is seen and examined at bedside Doing much better today States abd pain, diarrhea has resolved Eager to get discharged Offers no complaints Denies chest pain, SOB, dizziness, nausea Renal function improved Review of Systems Review of Systems: All systems reviewed & are unremarkable except as noted in HPI & below Physical Exam Physical Exam: General: no acute distress, chronic ill appearing, WDWN, No distress Head: normocephalic, atraumatic Eyes: PERRL, EOM's intact Neck: supple, trachea midline Lungs: clear, Normal breath sounds, CTA CV: S1, S2, No edema, No murmur Abd: hyperactive BS, soft, ventral hernia reducible, non-tender, no guarding, no rigidity Ext: no cyanosis, no calf tenderness Neuro: A&O to person, place, no focal deficits noted, normal affect Skin: warm, dry Results & Data Vital Signs (Past 12 Hours) Vital Signs Temp Pulse Resp BP Pulse Ox 04/24/19 07:11 36.7 C 64 20 137/68 96 Laboratory Results Short CBC 04/23/19 04/24/19 Range/Units 19:50 06:59 WBC 6.13 4.40 L (4.8-10.8) K/uL Hgb 11.9 L 10.3 L (12.0-16.0) g/dL Hct 33.5 L 29.7 L (37-47) % Plt Count 145 117 L (130-400) K/uL BMP 04/23/19 04/24/19 04/24/19 19:50 00:30 06:59 Sodium 130 L 133 L 133 L Potassium 5.7 H 4.6 D 4.6 Chloride 102 104 107 Carbon Dioxide 23 22 21 BUN 41 H 35 H 31 H Creatinine 1.48 H 1.11 D 0.94 Glucose 246 H 188 H 159 H Calcium 9.1 8.0 L 8.1 L Cardiac Enzymes 04/23/19 Range/Units 19:50 Troponin I < 0.015 (0-0.045) ng/ml Liver Function 04/23/19 Range/Units 19:50 Total Bilirubin 0.8 (0.2-1) mg/dl AST 23 (15-37) U/L ALT 64 (12-78) U/L Alkaline Phosphatase 95 (45-117) U/L Albumin 3.7 (3.4-5.0) gm/dl Urine 04/23/19 Range/Units 19:34 Urine Color Yellow Urine Appearance Clear (Clear) Urine pH 5.0 (4.5-7.5) Ur Specific [place] 1.030 (1.000-1.030) Urine Protein Negative (Negative) Urine Glucose (UA) 3+ H (Negative) (1) Diarrhea Diarrhea type: unspecified type Qualified Code(s): R19.7 - Diarrhea, unspecified (2) Atrial fibrillation Atrial fibrillation type: unspecified Qualified Code(s): I48.91 - Unspecified atrial fibrillation
--- NOTE | 2019-04-24 13:00 | Discharge Summary ---
Date of Service April 24, 2019 Admission HPI Per Admitting Provider Pt is 83 y/o F with PMH CAD s/p stent, tachybradycardia syndrome s/p pacemaker, HTN, HLD, diabetes, h/o kidney stone presented to ER with complaint of diarrhea x5 days. Patient with recent hospital admission 03/06/2019-03/13/2019 for [id number] bacteremia secondary to UTI/obstructing ureter stone. Patient was initially treated with Zosyn and transitioned to Augmentin. During the hospitalization patient also had right lower lobe pneumonia, developed atrial fibrillation, demand ischemia. 04/14/2019 had right ureteroscopy, lithotripsy and right stent and right stone extraction by Dr. Bojorquez. Patient has been on Cipro 250 mg twice daily. States this week has been having multiple episodes of watery diarrhea daily. Complaining of some lower abdominal cramping. States has had decreased oral intake as is concerned about having increased diarrhea with eating. Reports today had fever (unsure of temperature). Denies nausea or vomiting. Denies any dysuria, hematuria, urinary frequency, melena, hematochezia. Denies any ill contacts. Patient with recent elevated potassium levels and spironolactone was decreased to 3 times a week and recently has been discontinued secondary to continued hyperkalemia. Denies diaphoresis, TSAI, dizziness, syncope, vision changes, neck pain, CP, SOB, orthopnea, palpitations, cough, sore throat, choking, otalgia, rhinorrhea, paresthesias, extremity weakness, extremity edema, rashes, urinary symptoms. Admission Exam Per Admitting Provider General: no acute distress, chronic ill appearing elderly female, WDWN Head: normocephalic, atraumatic Eyes: PERRL, EOM's intact, conjunctiva non-injected, anicteric ENT: normal inspection external ears, nose, mucous membranes dry Neck: supple, trachea midline Lungs: clear, no respiratory distress, no wheezing/rhonchi/rales CV: RRR, no pretibial edema Abd: hyperactive BS, soft, ventral hernia reducible, non-tender to palpation, no CVA tenderness Ext: no cyanosis, no calf tenderness Neuro: A&O to person, place, no focal deficits noted, normal affect Skin: warm, dry Principal Diagnosis Discharge Information Discharge Diagnosis Acute kidney injury Hyperkalemia, Hyponatremia Dehydration Discharge Goals Decrease discomfort,Improve function Discharge Activity Limitations Resume your previous activity Discharge Data Allergies Allergy/AdvReac Type Severity Reaction Status Date / Time No Known Allergies Allergy Verified 04/23/19 20:17 Consultations 04/23/19 21:30 ED Decision to Admit Stat Procedures Performed CT ABD: 1. Improved exam compared to the prior study. 2. The obstruction of the right kidney and right ureter is considerably diminished with minimal residual fullness of the right renal collecting system. 3. Stable left renal as well as left ovarian cyst. 4. Nonobstructive colonic bowel pattern. 5. Ventral hernia containing nondistended bowel loops unchanged from the prior study.. 6. Small additional ventral hernia containing a short segment of small bowel also considered nonobstructing. Ordered Studies 04/23/19 19:03 CT abd pelvis wo con Stat Hospital Course (1) Diarrhea: (2) Dehydration: Likely due to diarrhea CT ABD: The obstruction of the right kidney and right ureter is considerably diminished with minimal residual fullness of the right renal collecting system. Stable left renal as well as left ovarian cyst. Nonobstructive colonic bowel pattern. Ventral hernia containing nondistended bowel loops unchanged from the prior study. Small additional ventral hernia containing a short segment of small bowel also considered nonobstructing. Stool for C.diff: Negative Abdominal pain, Diarrhea resolved Received IV fluids (3) Acute kidney injury: Likely prerenal Cr: 1.48>>>0.94 Received IV fluids Avoid Nephrotoxic agents (4) Hyponatremia: Likely due to TODD Potassium was 5.6 on 04/20/2019 and spironolactone was discontinued secondary to hyperkalemia Resolved Potassium :5.7>>4.6 (5) Tachy-morelia syndrome: S/P pacemaker (6) Kidney stone: H/O hospital admission 03/06/2019-03/13/2019 for gram-negative bacteremia secondary to UTI/obstructing ureter stone. Patient was initially treated with Zosyn and transitioned to Augmentin. 04/14/2019 had right ureteroscopy, lithotripsy and right stent and right stone extraction by Dr. Bojorquez. Patient has been on Cipro 250 mg twice daily. UA: No signs of UTI Denies flank pain, dysuria, hematuria (7) Atrial fibrillation: H/O atrial fibrillation Not on anticoagulation secondary to thrombocytopenia and bleeding risk On Lopressor (8) Diabetes mellitus, type II: Glucose: 246. A1c: 6.8 in 03/2019 Stable Disposition: Plan to discharge home today with HH Total Time Total Time Spent Total Time Spent (In Minutes): 36 minutes Total Time Includes: Examination of the Patient, Discharge Planning, Medication Reconciliation and Other Discharge Plan Discharge Items Patient Disposition: Home - Home Health Services Reason For Visit: ARF Discharge Diagnosis: Acute kidney injury Hyperkalemia, Hyponatremia Dehydration Discharge Goals: Decrease discomfort and Improve function Activity: Resume your previous activity Non-emergency contact: Primary Care Provider Call non-emergency contact if: you have any medication questions, your symptoms worsen, your pain is not controlled, your pain is worsening, your pain is unusual for you, your pain is concerning for you and you have a fever Follow-up/Referrals: Avtar Nielsen [Primary Care Provider] - Diet: Carb Consistent or DM2 and Lactose Intolerant Addtl Provider Instructions: Follow up with your Primary Care Physician Avtar Nielsen in 1 week as advised Do not take your Magnesium Hydroxide if you have recurrence of diarrhea--Discuss with your doctor for further recommendations Seek immediate medical attention if your symptoms reoccur or worsen Prescriptions: Continued sertraline 25 mg tablet 25 mg PO DAILY RF: 0 atorvastatin 40 mg Tablet 40 mg PO HS RF: 0 acetaminophen 325 mg Tablet 650 mg PO Q6H PRN (Reason: Fever Or Pain) RF: 0 clopidogrel 75 mg Tablet 75 mg PO QAM RF: 0 aspirin [Aspirin Low Dose] 81 mg Tablet,Delayed Release (Dr/Ec) 81 mg PO DAILY RF: 0 magnesium hydroxide [Milk of Magnesia] 400 mg/5 mL Suspension 15 ml PO HS PRN (Reason: Constipation) RF: 0 bisacodyl [Dulcolax (bisacodyl)] 10 mg Suppository 10 mg [place] DAILY PRN (Reason: Constipation) RF: 0 Fleet Enema 19-7 gram/118 mL Enema 197 ml [place] DAILY PRN (Reason: Constipation) RF: 0 furosemide [Lasix] 20 mg Tablet 20 mg PO 3XWK RF: 0 metoprolol tartrate 25 mg Tablet 25 mg PO TID RF: 0 Lactinex 1 million cell Tablet,Chewable 1 tab PO TID RF: 0 magnesium oxide 400 mg magnesium Capsule 400 mg PO DAILY RF: 0 Jardiance 10 mg Tablet 10 mg PO QAM RF: 0 ipratropium-albuterol 0.5 mg-3 mg(2.5 mg base)/3 mL Solution For Nebulization 3 ml INHALATION Q8H PRN (Reason: SHORT OF BREATH) RF: 0 Discontinued ciprofloxacin HCl 250 mg tablet 250 mg PO Q12 RF: 0 Stand-Alone Forms: [facility] Discharge Orders: Discharge Order (Routine); Ordered 04/24/19 Ordered By: Binh Son Admission Data Admit Date/Time: 04/23/19 22:53 Attending Provider: Binh Son Admit Provider: Vincent Rosa Primary Care Provider: Avtar Nielsen Other Providers: Vincent Rosa Service: Medical Other Interventions: Discharge Summary Assessment (RN) Last Done: 04/24/19 14:03 Pending Studies at Discharge: No DC Date/Time DO NOT enter until pt leaves facility: 04/24/19 14:48
[2019-04-24] MEDS ORDERED: ATORVASTATIN 40 MG TAB PO SCH (21:00)
[2019-04-25] MEDS ORDERED: INSULIN GLARGINE SOLOSTAR 100 UNITS/ML 3 ML PEN SC SCH (09:00)
== END 2019-04-24 14:48 | disposition home health service (06) | DRG 641 ==
LOC: ED 18:43 → 4E 22:53